=== PATIENT | male | born 1950 | race Caucasian/White ===

== ENCOUNTER 2016-11-13 05:52 | Inpatient (IN) ==
[2016-11-06 10:20] LABS: Basophils # 0.1 10*3/uL (0.0-0.2); Basophils % 0.6 % (0.0-0.8); Eosinophils # 0.2 10*3/uL (0.0-0.87); Eosinophils % 1.3 % (0.00-10.9); Hematocrit 46.6 VOL% (42.0-52.0); Hemoglobin 14.8 GM/DL (14.0-18.0); Immature Granulocytes % 0.8 %; Immature Granulocytes Absolute 0.12 #; Lymphocytes # 1.1 10*3/uL (1.4-4.0); Lymphocytes % 7.4 % (21.2-54.2); Mean Corpuscular HGB Conc 31.8 GM/DL (32-36); Mean Corpuscular Hemoglobin 31 PG (27-34); Mean Corpuscular Volume 97.5 FL (87-102); Mean Platelet Volume 10.5 FL (9.6-12.0); Monocytes # 0.7 10*3/uL (0.11-0.8); Monocytes % 4.8 % (1.7-12.7); Neutrophils # 12.4 10*3/uL (1.4-7.4); Neutrophils % 85.1 % (38.7-73.9); Platelet Count 170 T/CUMM (130-400); Red Blood Count 4.78 MC/CUMM (3.8-5.5); Red Cell Distribution Width 14.1 % (9.3-17.3); White Blood Count 14.5 T/CUMM (4-12)
--- NOTE | 2016-11-06 10:21 | EKG Report ---
Stationary ECG Study [facility] Test Date: 11/06/2016 10:20:18 AM Pat Name: МАРИЯ SORTO Department: Room: Gender: M Supervisor Assembling: MARIA D PARHAM : 1950 Requested by: Antoni Whittaker Order Number: [id number] Reading MD: PETRA ANDERSON Intervals [place] Rate: 70 P: -3 OR: 155 QRS: -20 QRSD: 137 T: 28 QT: 427 QTc: 448 Interpretive Statements SINUS RHYTHM WITH OCCASIONAL SUPRAVENTRICULAR PREMATURE COMPLEXES at 70 bpm RIGHT BUNDLE BRANCH BLOCK Electronically Signed On 11-06-16 13:12:31 CDT by PETRA ANDERSON [email or web address]
[2016-11-06 10:52] LABS: Calcium 8.9 MG/DL (8.5-10.1); Osmolality,Calculated 286.8 MOS/KG (273-304); Potassium 4.2 MMOL/L (3.5-5.1)
[2016-11-13] MEDS ORDERED: ceFAZolin 2,000 MG in PREMIX 1 EACH IV ONE (06:00)
[2016-11-13] MEDS ORDERED: ALBUTEROL/IPRATROPIUM 3 ML NEB RESP TX STA (06:29)
[2016-11-13] MEDS ORDERED: methylPREDNISolone SOD SUC 125 MG/2 ML VIAL ONE (06:31)
[2016-11-13] MEDS ORDERED: FAMOTIDINE 20 MG TABLET PO ONE (06:37)
[2016-11-13] MEDS ORDERED: CLINDAMYCIN INJ 50 ML IV ONE (06:47)
[2016-11-13] MEDS ORDERED: FAMOTIDINE 20 MG TABLET ONE (06:47)
[2016-11-13] MEDS ORDERED: methylPREDNISolone SOD SUC 125 MG/2 ML VIAL IV STA (06:58)
[2016-11-13] MEDS ORDERED: LACTATED RINGERS 1,000 ML IV SCH (07:00)
[2016-11-13] MEDS ORDERED: CLINDAMYCIN INJ 900 MG in PREMIX 1 EACH IV ONE (07:01)
--- NOTE | 2016-11-13 07:28 | History and Physical Update ---
History and Physical Update - History and Physical H&P was reviewed, the patient examined and there: are no changes in the patients condition since last H&P was completed. - Dictation Physical: refer to scanned H&P
[2016-11-13 08:16] LABS: Apearance,Urine CLEAR (Clear); Bilirubin,Urine Negative (Negative); Blood, Urine Negative (Negative); Glucose,Urine (UA) Negative (Negative); Ketones,Urine Negative (Negative); Mucus,Urine Occasional /LPF (Occasional); Nitrite,Urine Negative (Negative); Protein,Urine Negative; RBC,Urine 1 /HPF (0-4); Squamous Epithelial Cell,Urine Occasional /HPF (0-10); Urine Color Straw (Yellow); Urine Specific Gravity 1.009 (1.001-1.035); Urine Urobilinogen < 2.0 EU/DL (0.2-1.0)
[2016-11-13] MEDS ORDERED: ROPIVACAINE 0.5% 30 ML VIAL ONE (08:57)
--- NOTE | 2016-11-13 09:52 | Operative Note ---
Date of procedure: 11/13/16 Procedure: Dr. Terry with operative note on Peter Salas. Surgeon Panfilo Sewer Line Photo Inspector Dr. Terry Procedure laparoscopy with open repair of right diaphragmatic and ventral hernia with mesh. Description: Dr. Whittaker perform laparoscopy and open and open repair of a right diaphragmatic and ventral hernia and repair of costal margin using Prolene mesh. I scrubbed and assisted throughout the procedure including initial laparoscopy the repair and closure by Dr. Whittaker. Surgeon / Physician: Preet Terry Results - Labs CBC & BMP: 11/06/16 10:13 11/06/16 10:13 Discharge Plan - Discharge Medications No Action Fluoxetine HCl 40 mg PO DAILY Doxazosin [Cardura] 4 mg PO BEDTIME Aspirin [Ecotrin] 81 mg PO DAILY Albuterol Sulfate [Proair HFA] 2 puff INH BID Amiodarone Tab [Cordarone Tab] 100 mg PO DAILY predniSONE TAB [PredniSONE] See Taper PO DAILY Ergocalciferol (Vitamin D2) [Vitamin D2] 50,000 unit PO DIRECTED Glimepiride [Amaryl] 1 mg PO DAILY Furosemide Tab [Lasix Tab] 80 mg PO DAILY PRN PRN Reason: Edema Arformoterol Neb [Brovana] 15 mcg RESP TX RT BID - Follow Up or Referral - Forms/Instructions
--- NOTE | 2016-11-13 10:12 | Operative Note ---
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 Diagnostic laparoscopy 2. Laparoscopic lysis of adhesions with reduction of hernia contents 3. Open repair of ventral abdominal wall hernia with mesh 4. Open repair of diaphragmatic hernia with mesh 5. Right sided abdominal wall component separation/myofascial release Findings Laparoscopy revealed a large combined diaphragmatic and abdominal wall and chest wall hernia defect between the ninth and 10th ribs. The pleural and peritoneal interface had been violated by the hernia defect and they communicated with one another and although the lung was visible at the right lower lobe this did not communicate completely with the pleural space because of scar tissue from the hernia defect. The hernia was reduced laparoscopically and a complete lysis of adhesions was performed. It appeared as though it would be impossible to close the defect laparoscopically because of the tension that was present in the separation of the ribs so a small incision was made in the intercostal space for the ribs and and the repair was performed using a combined open and laparoscopic technique. A component separation was performed on the right sided abdominal wall muscle and myofascial release was completed. This allowed us to close the posterior fascia up to the intercostals which were then closed with intercostal sutures using Ethibond [id number]. A piece of pro-vice president process polypropylene mesh was then placed with the adhesive surface facing the posterior sheath and was placed on top of the chest wall after the intercostals were closed and transition from the posterior sheath of the chest wall above the rib space. The anterior fascial layer of the abdomen and intercostals was then closed with another suture layer and a drain was placed. Repeat laparoscopy revealed complete coat closure of the defect with no mesh exposed. Complications None apparent Specimen None Surgeon Panfilo State Auditor Harrison Blood loss 50 mL Implants 30 x 15 cm polypropylene self-adhesive mesh Indications Symptomatic combined abdominal wall, chest wall, diaphragmatic hernia on the right side Description of procedure The patient was taken to the operating room and transferred to the operating table in the supine position. Pressure points were padded and SCDs were placed lower extremities. The abdominal hair was clipped with electric clippers and prepped with chlorhexidine after the patient was intubated and rolled into the left lateral decubitus position modified with a beanbag. The abdomen was entered in a supraumbilical location in a paramedian location on the right midline using a Veress needle. A 8 mm skin incision was made with a scalpel and a Veress needle was used and of the peritoneal cavity after the abdominal wall was retracted with towel clips a double click technique was used to confirm intraperitoneal location. Aspiration was negative. Saline drop test confirmed intraperitoneal location. The abdomen was insufflated with 7 L of CO2 to 15 mmHg and the Veress needle was removed. A robotic 8 mm trocar was placed blindly. The laparoscope was inserted. The patient was placed in reverse Trendelenburg position. Diagnostic laparoscopy revealed what appeared to be a combined abdominal wall and chest wall and diaphragmatic hernia on the right side with a significant separation of the intercostal space between the ninth and 10th ribs. There were adhesions between the omentum that were tenting the colon up to this as well but all the adhesions were between the omentum and the hernia sac. These adhesions were taken down using sharp dissection and electrocautery were needed. Once the hernia contents were completely reduced we assess the tension on the lateral edges of the hernia defect and this appeared to be too much tension for any sort of primary closure laparoscopically or robotically. We thought that by making an incision we could close the intercostal space and take tension off of the chest wall portion of the hernia and get a primary closure with some sort of mesh repair as well. The laparoscope was removed and the CO2 was released from the abdomen. An incision was made over the bulging hernia defect and we entered the hernia sac through an incision made with scalpel at this location electrocautery was then used to open the remainder of the hernia sac and the hernia was further delineated. What we saw with an open incision was that the parietal pleura and the peritoneum had both been blown out by the hernia and communicated with one another and we can actually see visceral pleura in the right lower lobe of the lung in this location. There were adhesions between the lung and the chest wall so that it did not communicate completely with the right hemithorax. We were able to bring together the diaphragm laterally but it became more difficult more medially where the diaphragm transition into the intercostal in the abdominal wall muscle. A myofascial release was performed and component separation was performed to release tension on the abdominal wall portion of the hernia and using this technique with complete component separation we are able to more easily close the posterior fascia of the abdominal wall up to the intercostal muscles and the diaphragm was able to be partially closed once the intercostals were closed with [id number] 0 Ethibond sutures. The posterior fascia and diaphragm and chest wall was otherwise closed with a running #1 Prolene suture. The space of the hernia closure was then measured once the entire length of the defect was closed and it measured about 25 x 15 cm. A piece of 30 x 15 cm self adhesive pro-vice president process polypropylene mesh was opened and placed in the space had been created in the abdominal wall by the component separation between the posterior and anterior fascial layers. This then transitioned over the intercostals into a onlay type of mesh above the intercostal closure space. The mesh was also sewn in place with interrupted 0 Vicryl sutures and Tisseel glue 10 cc was used to secure the mesh further in place. A #10 MAYTE drain was placed below the intercostal closure where there was still some lung exposed and a portion of the fenestrated part of the MAYTE drain was also placed in the subcutaneous closure above the intercostal muscles. The anterior fascial layer of the abdominal wall was then closed in conjunction with the chest wall external oblique aponeurosis with a running 0 Prolene suture. The MAYTE drain was hooked up to bulb suction and a repeat laparoscopy was performed. There is no significant bleeding seen on laparoscopy and there appeared to be a complete closure of the hernia defect that was initially seen. The skin incisions were closed with skin clips and the laparoscope was removed and the trochars were removed once the CO2 was released from the abdomen. Those skin incisions were also closed with skin clips and the patient was transferred to recovery with plans to attempt extubation and monitor him in the ICU overnight. An intercostal nerve block is also planned to assist with postoperative pain control Postoperative plan Pain control and respiratory priority Implants: Pro-vice president process [id number] polypropylene mesh Anesthesia: DORITA, regional Surgeon / Physician: Antoni Whittaker Button Sewer: Preet Terry Estimated blood loss: minimal (50 mL) Specimens: none sent Condition: stable Disposition: ICU Results - Labs CBC & BMP: 11/06/16 10:13 11/06/16 10:13 Discharge Plan - Discharge Medications No Action Fluoxetine HCl 40 mg PO DAILY Doxazosin [Cardura] 4 mg PO BEDTIME Aspirin [Ecotrin] 81 mg PO DAILY Albuterol Sulfate [Proair HFA] 2 puff INH BID Amiodarone Tab [Cordarone Tab] 100 mg PO DAILY predniSONE TAB [PredniSONE] See Taper PO DAILY Ergocalciferol (Vitamin D2) [Vitamin D2] 50,000 unit PO DIRECTED Glimepiride [Amaryl] 1 mg PO DAILY Furosemide Tab [Lasix Tab] 80 mg PO DAILY PRN PRN Reason: Edema Arformoterol Neb [Brovana] 15 mcg RESP TX RT BID - Follow Up or Referral - Forms/Instructions
--- NOTE | 2016-11-13 10:53 | Anesthesia ---
Anesthesia Procedures - Nerve Blocks Surgical Procedure: Right Clamshell diaphragmatic hernia take down and closure Main Anesthetic: general anesthesia (Plus regional) Location: OR Position: other (Left) Type of Block: Right: Epidural (Paravertebral nerve block) Local Anesthetic: 0.5% Ropivicaine (Total 20mL of ropicaine 0.5%- aspirated no blood or air at paravertebral space) Ultrasound Used to: Recognize Landmarks (Using 4 inch marked 1cm increments c sterile prep; 2.5cm lateral to T7 spinous process; advance needle to Transverse process 7 at depth of 4.9cm; then cephalad 45% angle advanced needle to depth of 6.25cm; aspirated no blood or air, then aliqouts of 5mL of 0.5% ropivacaine were injected with aspiration per 5 mL. No issues noted; Vital signs remained stable. ) Epidural Block: 18 G Tuohy needle into (22 g 4 inch needle used) Patient vitals signs stable throughout procedure.: Patient tolertaed the procedure well with no apparent complications. (total of ropivacaine 0.5% 20mL)
[2016-11-13] MEDS ORDERED: PROPOFOL 200 MG/20 ML VIAL IV ONE (11:03)
[2016-11-13] MEDS ORDERED: SEVOFLURANE 1 UNIT/15 MINUTE INH ONE (11:04)
[2016-11-13] MEDS ORDERED: HYDROmorphone 2 MG/1 ML VIAL ONE ×2 (11:04→11:26)
[2016-11-13] MEDS ORDERED: fentaNYL 100 MCG/2 ML VIAL ONE (11:05)
[2016-11-13] MEDS ORDERED: MIDAZOLAM 2 MG/2 ML VIAL ONE (11:05)
[2016-11-13] MEDS ORDERED: NEOSTIGMINE 10 MG/10 ML VIAL ONE (11:05)
[2016-11-13] MEDS ORDERED: GLYCOPYRROLATE 0.4 MG/2 ML VIAL ONE (11:05)
[2016-11-13] MEDS ORDERED: ACETAMINOPHEN 1,000 MG/100 ML VIAL IV ONE (11:05)
[2016-11-13] MEDS ORDERED: ROCURONIUM 100 MG/10 ML VIAL IV ONE (11:06)
[2016-11-13] MEDS ORDERED: LACTATED RINGERS 2,000 ML IV ONE (11:06)
--- NOTE | 2016-11-13 11:20 | XRay Report ---
XR chest 1V portable Indication: Hernia repair surgery Comparison: 16 July 2016 Findings: The heart and mediastinum are stable in size and configuration. The pulmonary vascularity is slightly increased with bilateral increased interstitial lung density. Drain overlies the right side of the lower chest and upper abdomen. No other lung infiltrates, effusions, pneumothorax or other abnormality is demonstrated. Impression: Findings suggest mild cardiac decompensation. Drain overlies the right lower chest and right upper abdomen. PROCEDURE INTERPRETED AT [facility] Final Report Signed by: Dr. Kurt Treviño
[2016-11-13] MEDS ORDERED: ONDANSETRON 4 MG/2 ML VIAL ONE (11:26)
[2016-11-13] MEDS: HYDROmorphone 2 MG/1 ML VIAL IV PRN ×4 (11:27→11:42)
[2016-11-13] MEDS ORDERED: ONDANSETRON 4 MG/2 ML VIAL IV PRN (11:45)
[2016-11-13] MEDS ORDERED: DEXTROSE 50% 25 GM/50 ML VIAL IV PRN (13:25)
[2016-11-13] MEDS ORDERED: ERGOCALCIFEROL 50,000 UNIT CAPSULE PO SCH (13:25)
[2016-11-13] MEDS ORDERED: FUROSEMIDE 80 MG TABLET PO PRN (13:25)
[2016-11-13] MEDS ORDERED: KETOROLAC 15 MG/1 ML VIAL IV SCH (13:25)
[2016-11-13] MEDS ORDERED: GLUCAGON 1 MG VIAL IM PRN (13:25)
[2016-11-13] MEDS ORDERED: PROMETHAZINE 25 MG/1 ML VIAL IM PRN (13:25)
[2016-11-13] MEDS: LACTATED RINGERS 1,000 ML IV SCH ×2 (13:30→17:32)
[2016-11-13 13:58] LABS: Basophils % 0.1 % (0.0-0.8); Hematocrit 38.7 VOL% (42.0-52.0); Hemoglobin 12.2 GM/DL (14.0-18.0); Immature Granulocytes % 0.6 %; Lymphocytes # 0.3 10*3/uL (1.4-4.0); Lymphocytes % 1.6 % (21.2-54.2); Mean Corpuscular HGB Conc 31.5 GM/DL (32-36); Mean Corpuscular Hemoglobin 31 PG (27-34); Mean Corpuscular Volume 98.2 FL (87-102); Mean Platelet Volume 10.7 FL (9.6-12.0); Monocytes # 0.5 10*3/uL (0.11-0.8); Monocytes % 3.3 % (1.7-12.7); Neutrophils # 15.1 10*3/uL (1.4-7.4); Neutrophils % 94.4 % (38.7-73.9); Platelet Count 168 T/CUMM (130-400); Red Blood Count 3.94 MC/CUMM (3.8-5.5); Red Cell Distribution Width 13.8 % (9.3-17.3)
[2016-11-13 14:13] LABS: PT Patient Result 10.7 SECS; Partial Thromboplastin Time 26.9 SECS (0-40)
[2016-11-13 14:18] LABS: Lymphocytes 1 % (20-55); Segmented Neutrophils 96 % (50-85); Total Cells Counted 100
[2016-11-13 14:19] LABS: Platelet Estimate Adequate
[2016-11-13] MEDS: HYDROmorphone PCA 30 MG/30 ML SYRINGE IV SCH (14:46)
[2016-11-13 14:47] LABS: Calcium 7.8 MG/DL (8.5-10.1); Magnesium 2.1 MG/DL (1.8-2.4); Osmolality,Calculated 287.3 MOS/KG (273-304); Potassium 4.5 MMOL/L (3.5-5.1)
[2016-11-13] MEDS: ONDANSETRON 4 MG/2 ML VIAL IV SCH ×3 (14:48→22:32)
--- NOTE | 2016-11-13 14:48 | Pulmonology Progress Note ---
Pulmonary - PN: Subj Interval history: Patient is a 66-year-old white man that is overweight with COPD. Last winter he had pneumonia and respiratory failure and had a difficult time. He has severe coughing episode tore a muscle in his right rib cage. From there he developed a hernia. His breathing had done well he was doing much better. He came in today to have his hernia repaired. He had repair of the diaphragmatic hernia and the abdominal wall hernia but he did not have to have a thoracotomy. He is doing well postop and is alert and awake. He is very sore but feels like his breathing is okay. He has chronically been on steroids. Exam (Progress Note) - Constitutional Vitals: Period Temp Pulse Resp BP Sys/Padgett Pulse Ox Last 24 Hr 97.4 F-98.0 F 62-94 12-20 102-168/56-97 73-99 General appearance: mild distress (He is alert and looks quite stable postop), over weight - Head Head exam: Present: normal inspection, normocephalic - Eye Eye exam: Present: EOMI. Absent: scleral icterus Pupils: Present: NASH - ENT ENT exam: Present: normal exam - Neck Neck exam: Present: normal inspection. Absent: lymphadenopathy, thyromegaly - Respiratory Respiratory exam: Present: decreased breath sounds. Absent: wheezes - Cardiovascular Cardiovascular exam: Present: regular rate and rhythm. Absent: gallop, systolic murmur - GI/Abdominal GI/Abdominal exam: Present: distended, tenderness, soft, other (He does have a drain in place). Absent: organomegaly - Extremities Exam Extremities exam: Absent: calf tenderness, edema - Neurological Exam Neurological exam: Present: alert, oriented X3. Absent: CN II-XII intact - Psychiatric Psychiatric exam: Present: normal affect - Skin Skin exam: Present: warm, dry Results - Labs CBC & BMP: 11/13/16 13:53 11/06/16 10:13 - Diagnostic Findings Procedure: Chest x-ray: image reviewed by me, report reviewed by me (Chest x- ray has mild bibasilar changes.) Assessment and Plan (1) Diaphragmatic hernia Status: Acute Assessment and plan: Patient came in had a right diaphragmatic hernia repaired along with abdominal wall hernia. He did well with surgery and is fairly stable now Current Visit: Yes (2) Abdominal wall hernia Status: Acute Assessment and plan: He has a drain in his abdominal wall but is doing okay. Current Visit: Yes (3) COPD (chronic obstructive pulmonary disease) Status: Acute Assessment and plan: He has COPD but is breathing comfortably and will continue with bronchodilator therapy. Current Visit: Yes (4) Hypertension Status: Acute Assessment and plan: His vital signs are stable at present Current Visit: No (5) Obstructive sleep apnea Status: Acute Assessment and plan: He may need his CPAP at night. Current Visit: No
--- NOTE | 2016-11-13 16:32 | Event Note ---
General Surgery Progress Note Chief complaint This patient is a 66-year-old man with severe COPD on home oxygen who was admitted after laparoscopic lysis of adhesions with open repair of right sided abdominal wall, chest wall, and diaphragmatic hernia with mesh on 11/13/2016 Interval history The patient is doing fairly well but he has a slightly low blood pressure. He is not tachycardic. He does not feel lightheaded. His postoperative labs revealed that his hemoglobin had dropped from 14.8 preop to 12.2 postop. He has not voided since surgery. His creatinine was normal. He has had about 500 cc of output from his MAYTE drain but is looking more serosanguineous although it was slightly bloody initially. He also has respiratory variation and part of it is inside the pleural cavity. His postoperative chest x-ray showed no pneumothorax. Physical exam The patient is afebrile and his heart rate is normal. His blood pressure slightly low in the 100s over 50s range. Chest is clear Heart is regular Abdominal exam is normal with expected postoperative tenderness MAYTE drain is serosanguineous and is clearing up and the output is slowing down slightly. Labs Hemoglobin 12.2 g/dL excellent coags normal Creatinine normal Imaging Chest x-ray shows expanded right lung Assessment and plan Continue monitoring MAYTE drain output and serial hemoglobins tonight. The next hemoglobin will be at 8 PM. The patient may need a blood transfusion if it drops below 10 g/dL Continue monitoring urine output and do bladder scan at 1600 if he has not voided yet Continue current pain medication regimen. If his hemoglobin drops any more he will need to have his Toradol stopped. Continue abdominal binder Tentatively plan to start DVT chemoprophylaxis tomorrow if his hemoglobin is stable
[2016-11-13] MEDS ORDERED: LACTATED RINGERS 1,000 ML IV ONE (17:19)
--- NOTE | 2016-11-13 17:23 | Anesthesia ---
Anesthesia Post OP - Post Ansesthetic Evaluation Patient seen in post op: Yes Resp: within normal limits CV: within normal limits Mental: within normal limits Temp: within normal limits Olet-Ex-Ogzjeycir: within normal limits Nausea and Vomiting: within normal limits Pain: within normal limits
[2016-11-13] MEDS: INSULIN REGULAR 100 UNIT/ML SUBCUT SCH ×3 (17:26→21:55)
[2016-11-13] MEDS: ALBUTEROL/IPRATROPIUM 3 ML NEB RESP TX SCH (18:59)
[2016-11-13] MEDS ORDERED: ARFORMOTEROL 15 MCG/2 ML NEB RESP TX SCH (19:00)
[2016-11-13] MEDS ORDERED: SODIUM CHLORIDE 0.9% 1,000 ML IV ONE (20:06)
[2016-11-13 20:08] LABS: Basophils % 0.1 % (0.0-0.8); Hematocrit 36.8 VOL% (42.0-52.0); Hemoglobin 11.4 GM/DL (14.0-18.0); Immature Granulocytes % 0.8 %; Immature Granulocytes Absolute 0.12 #; Lymphocytes # 0.5 10*3/uL (1.4-4.0); Lymphocytes % 3.7 % (21.2-54.2); Mean Corpuscular Hemoglobin 30 PG (27-34); Mean Corpuscular Volume 98.1 FL (87-102); Mean Platelet Volume 10.7 FL (9.6-12.0); Monocytes # 0.9 10*3/uL (0.11-0.8); Monocytes % 5.8 % (1.7-12.7); Neutrophils # 13.2 10*3/uL (1.4-7.4); Neutrophils % 89.6 % (38.7-73.9); Platelet Count 174 T/CUMM (130-400); Red Blood Count 3.75 MC/CUMM (3.8-5.5); Red Cell Distribution Width 14.1 % (9.3-17.3); White Blood Count 14.7 T/CUMM (4-12)
[2016-11-13 20:28] LABS: Lymphocytes 4 % (20-55); Platelet Estimate Adequate; Segmented Neutrophils 89 % (50-85); Total Cells Counted 100
[2016-11-13] MEDS ORDERED: ALBUTEROL 2.5 MG/3 ML NEB RESP TX SCH (21:00)
[2016-11-13] MEDS ORDERED: ALBUMIN 5% 25 GM in PREMIX 1 EACH IV ONE (22:03)
[2016-11-14] MEDS: DOXAZOSIN 4 MG TABLET PO SCH ×2 (00:01→21:45)
[2016-11-14] MEDS: ALBUTEROL/IPRATROPIUM 3 ML NEB RESP TX SCH ×4 (01:20→19:46)
[2016-11-14] MEDS: LACTATED RINGERS 1,000 ML IV SCH ×6 (02:20→19:47)
[2016-11-14] MEDS: ONDANSETRON 4 MG/2 ML VIAL IV SCH ×6 (02:21→21:42)
[2016-11-14] MEDS ORDERED: ENOXAPARIN 40 MG/0.4 ML SYRINGE SUBCUT SCH (04:00)
[2016-11-14 04:36] LABS: Basophils % 0.1 % (0.0-0.8); Hematocrit 33.6 VOL% (42.0-52.0); Hemoglobin 10.3 GM/DL (14.0-18.0); Immature Granulocytes % 0.7 %; Immature Granulocytes Absolute 0.11 #; Lymphocytes % 6.4 % (21.2-54.2); Mean Corpuscular HGB Conc 30.7 GM/DL (32-36); Mean Corpuscular Hemoglobin 31 PG (27-34); Mean Platelet Volume 11.1 FL (9.6-12.0); Monocytes % 12.9 % (1.7-12.7); Neutrophils # 12.4 10*3/uL (1.4-7.4); Neutrophils % 79.9 % (38.7-73.9); Platelet Count 182 T/CUMM (130-400); Red Blood Count 3.36 MC/CUMM (3.8-5.5); Red Cell Distribution Width 14.3 % (9.3-17.3); White Blood Count 15.6 T/CUMM (4-12)
[2016-11-14 05:04] LABS: Calcium 7.9 MG/DL (8.5-10.1); Potassium 5.1 MMOL/L (3.5-5.1)
--- NOTE | 2016-11-14 06:17 | XRay Report ---
Referring Physician: Antoni Whittaker Exam: XR chest 1V portable Date: November 14, 2016 at 2:50 AM Reason: Shortness of breath Comparison: Chest one view portable November 13, 2016 Findings: The cardiac silhouette is again enlarged. The interstitial markings are prominent bilaterally, suggesting pulmonary edema. There is also mild atelectasis at the lung bases and likely minimal bilateral pleural fluid. A drainage catheter again projects at the right lung base. No pneumothorax is identified. The osseous structures appear stable. Impression: There is slight improvement aeration of both lung bases, mainly on the left. PROCEDURE INTERPRETED AT [facility]MENT OF RADIOLOG[facility] Final Report Signed by: Dr. Rivera Lord
--- NOTE | 2016-11-14 07:10 | Pulmonology Progress Note ---
Pulmonary - PN: Subj Interval history: Patient is a 66-year-old white man that is overweight with COPD. Last winter he had pneumonia and respiratory failure and had a difficult time. He has severe coughing episode tore a muscle in his right rib cage. From there he developed a hernia. His breathing had done well he was doing much better. He came in to have his hernia repaired. He had repair of the diaphragmatic hernia and the abdominal wall hernia but he did not have to have a thoracotomy. He said he had a fairly good night although he is very sore. He did try to use his CPAP some. He cannot sleep and mainly was uncomfortable all night. He says his breathing is doing well however. Exam (Progress Note) - Constitutional Vitals: Period Temp Pulse Resp BP Sys/Padgett Pulse Ox Last 24 Hr 97.4 F-98.9 F 62-94 10-20 87-143/45-84 73-99 Exam: General appearance: no distress (He is alert and is not having any respiratory distress.), over weight - Head Head exam: Present: normal inspection, normocephalic - Eye Eye exam: Present: EOMI. Absent: scleral icterus Pupils: Present: NASH - ENT ENT exam: Present: normal exam - Neck Neck exam: Present: normal inspection. Absent: lymphadenopathy, thyromegaly - Respiratory Respiratory exam: Present: decreased breath sounds. He is moving air fairly well with only some mild rhonchi. Absent: wheezes - Cardiovascular Cardiovascular exam: Present: regular rate and rhythm. Absent: gallop, systolic murmur - GI/Abdominal GI/Abdominal exam: Present: distended, tenderness, soft, other (He does have a drain in place). Absent: organomegaly - Extremities Exam Extremities exam: Absent: calf tenderness, edema - Neurological Exam Neurological exam: Present: alert, oriented X3. Absent: CN II-XII intact - Psychiatric Psychiatric exam: Present: normal affect - Skin Skin exam: Present: warm, dry Results - Labs CBC & BMP: 11/14/16 03:52 11/14/16 03:52 - Diagnostic Findings Procedure: Chest x-ray: image reviewed by me, report reviewed by me (Chest x- ray shows cardiomegaly with only some minimal infiltrates in the bases.) Assessment and Plan (1) Diaphragmatic hernia Status: Acute Assessment and plan: Patient came in had a right diaphragmatic hernia repaired along with abdominal wall hernia. He is doing okay but is very uncomfortable. His breathing has been stable. Current Visit: Yes (2) Abdominal wall hernia Status: Acute Assessment and plan: He has a drain in his abdominal wall but is doing okay. Current Visit: Yes (3) COPD (chronic obstructive pulmonary disease) Status: Acute Assessment and plan: He has COPD but is breathing comfortably and will continue with bronchodilator therapy. He is comfortable with his breathing. Current Visit: Yes (4) Hypertension Status: Acute Assessment and plan: His vital signs are stable at present. Current Visit: No (5) Obstructive sleep apnea Status: Acute Assessment and plan: He did use his CPAP some last night. Current Visit: No
[2016-11-14] MEDS: INSULIN REGULAR 100 UNIT/ML SUBCUT SCH ×4 (07:48→21:44)
[2016-11-14] MEDS: AMIODARONE 200 MG TABLET PO SCH (09:16)
[2016-11-14] MEDS: ASPIRIN EC 81 MG TABLET PO SCH (09:16)
[2016-11-14] MEDS: predniSONE 20 MG TABLET PO SCH (09:16)
[2016-11-14] MEDS: FLUoxetine 20 MG CAPSULE PO SCH (09:16)
--- NOTE | 2016-11-14 10:44 | Event Note ---
General Surgery Progress Note Chief complaint This patient is a 66-year-old man with severe COPD on home oxygen who was admitted after laparoscopic lysis of adhesions with open repair of right sided abdominal wall, chest wall, and diaphragmatic hernia with mesh on 11/13/2016 Interval history No events overnight. Patient's hemoglobin has drifted down to 10.2 this morning. He was a little bit hypotensive overnight but his blood pressure is normal now. His MAYTE drain is more serosanguineous now. He feels well. Physical exam The patient is afebrile and his heart rate is normal. His blood pressure is normal Chest is clear Heart is regular Abdominal exam is normal with expected postoperative tenderness MAYTE drain is serosanguineous and is clearing up and the output is slowing down slightly. Labs Hemoglobin 10.2 g/dL Creatinine up to 1.6 Imaging Chest x-ray shows expanded right lung, no other changes Assessment and plan We will start getting the patient up in a chair today Continue current pain regimen but we need to stop Toradol and hold Lovenox because of bleeding risk Continue SCDs to bilateral lower extremities Repeat hemoglobin at noon and repeat labs tomorrow morning Monitor urine output and add IV fluid as necessary but currently the urine output has been adequate per hour.
[2016-11-14 13:10] LABS: Basophils % 0.1 % (0.0-0.8); Eosinophils % 0.1 % (0.00-10.9); Hematocrit 34.7 VOL% (42.0-52.0); Hemoglobin 10.7 GM/DL (14.0-18.0); Immature Granulocytes % 0.7 %; Immature Granulocytes Absolute 0.12 #; Lymphocytes # 0.7 10*3/uL (1.4-4.0); Lymphocytes % 3.9 % (21.2-54.2); Mean Corpuscular HGB Conc 30.8 GM/DL (32-36); Mean Corpuscular Hemoglobin 31 PG (27-34); Mean Corpuscular Volume 101.5 FL (87-102); Mean Platelet Volume 10.9 FL (9.6-12.0); Monocytes # 2.2 10*3/uL (0.11-0.8); Neutrophils # 13.7 10*3/uL (1.4-7.4); Neutrophils % 82.2 % (38.7-73.9); Platelet Count 167 T/CUMM (130-400); Red Blood Count 3.42 MC/CUMM (3.8-5.5); Red Cell Distribution Width 14.4 % (9.3-17.3); White Blood Count 16.7 T/CUMM (4-12)
[2016-11-14] MEDS: HYDROmorphone PCA 30 MG/30 ML SYRINGE IV SCH (13:14)
[2016-11-14 13:29] LABS: Lymphocytes 3 % (20-55); Platelet Estimate Adequate; Segmented Neutrophils 91 % (50-85); Total Cells Counted 100
--- NOTE | 2016-11-14 13:29 | Physician Query Form ---
CLICK EDIT DOCUMENT TO SELECT QUERY ANSWER --> OK --> SIGN Denise Clemens RN, CCDS Certified Clinical Financial Advisor W) [phone] (f) [phone] [email or web address] PROVIDERS: Make your selection(s) from the choices in EACH section by typing an "x" and enter comments in the comment section. Please use your independent medical judgment in providing your response. This request does not imply that any particular answer is desired or expected. CLINICAL INDICATORS: (Providers should not edit this section) "This patient is a 66-year-old man with severe COPD on home oxygen", the patient was admitted for surgery and was placed on 2 liters per NC. Based on the above, could you clarify the appropriate diagnosis, if significant , that supports the above abnormalities and additional evaluation, monitoring, and/or treatment rendered: (x ) Patient is being monitored or treated for chronic respiratory failure ( ) Patient is not being monitored or treated for chronic respiratory failure ( ) Other, please specify: ( ) Clinically unable to determine COMMENTS: Use of terms such as suspected, likely, or probable (associated with a specific diagnosis that is being evaluated, monitored, or treated as if it exists) are acceptable and can be restated in the discharge summary if not ruled out. MTDD
[2016-11-14 13:30] LABS: Poikilocytosis Slight
[2016-11-14] MEDS: HEPARIN 5,000 UNIT/1 ML VIAL SUBCUT SCH (21:43)
[2016-11-14 22:56] LABS: ABG Base Excess 0.8 MMOL/L (-2.5-2.5); ABG HCO3 24.9 MMOL/L (20-26); ABG Oxygen Saturation 86.6 % (95-100); ABG PCO2 51.9 MM HG (35-48); ABG PH 7.331 (7.35-7.45); ABG PO2 52.4 MM HG (80-95); Allen Test Positive; Pt O2 Delivery Device BIPAP
[2016-11-15] MEDS: ALBUTEROL/IPRATROPIUM 3 ML NEB RESP TX SCH ×4 (00:56→19:57)
[2016-11-15 02:01] LABS: Basophils % 0.2 % (0.0-0.8); Hematocrit 35.1 VOL% (42.0-52.0); Hemoglobin 10.9 GM/DL (14.0-18.0); Immature Granulocytes % 0.6 %; Immature Granulocytes Absolute 0.11 #; Lymphocytes # 1.1 10*3/uL (1.4-4.0); Lymphocytes % 5.5 % (21.2-54.2); Mean Corpuscular HGB Conc 31.1 GM/DL (32-36); Mean Corpuscular Hemoglobin 31 PG (27-34); Mean Corpuscular Volume 100.3 FL (87-102); Mean Platelet Volume 11.2 FL (9.6-12.0); Monocytes # 2.5 10*3/uL (0.11-0.8); Monocytes % 12.6 % (1.7-12.7); Neutrophils # 16.2 10*3/uL (1.4-7.4); Neutrophils % 81.1 % (38.7-73.9); Platelet Count 160 T/CUMM (130-400); Red Cell Distribution Width 14.5 % (9.3-17.3); White Blood Count 19.9 T/CUMM (4-12)
[2016-11-15] MEDS ORDERED: FUROSEMIDE 40 MG/4 ML VIAL IV ONE (02:03)
[2016-11-15] MEDS ORDERED: DILTIAZEM 100 MG VIAL.ADD IV ONE (02:06)
[2016-11-15] MEDS: DILTIAZEM INJ 100 MG in SODIUM CHLORIDE 0.9% 100 ML IV SCH ×3 (02:20→16:28)
[2016-11-15 02:38] LABS: Magnesium 2.2 MG/DL (1.8-2.4); Osmolality,Calculated 286.3 MOS/KG (273-304); Potassium 4.9 MMOL/L (3.5-5.1)
[2016-11-15 03:48] LABS: ABG Base Excess 1.1 MMOL/L (-2.5-2.5); ABG Oxygen Saturation 73.6 % (95-100); ABG PH 7.336 (7.35-7.45); ABG TCO2 25.3 MMOL/L (23-27); Allen Test Positive; Pt O2 Delivery Device BIPAP
[2016-11-15 04:07] LABS: ABG PO2 39.7 MM HG (80-95)
[2016-11-15] MEDS: ONDANSETRON 4 MG/2 ML VIAL IV SCH ×6 (04:16→21:27)
[2016-11-15] MEDS: HEPARIN 5,000 UNIT/1 ML VIAL SUBCUT SCH ×3 (05:57→22:39)
--- NOTE | 2016-11-15 06:24 | XRay Report ---
Referring Physician: Antoni Whittaker Exam: XR chest 1V portable Date: November 15, 2016 at 1:32 AM Reason: Shortness of breath Comparison: Chest one view portable November 14, 2016 Findings: A catheter projects at the right lung base and may represent a chest tube. The cardiac silhouette is again enlarged. There are scattered opacities within both lungs, most prominent at the right lung base. This likely represents pulmonary edema and atelectasis, but there could also be pneumonia at the right lung base. No pneumothorax is identified, but there is mild right pleural fluid and likely minimal left pleural fluid. The osseous structures appear stable. Impression: There is increased opacification/pleural fluid at the right lung base. The study is otherwise similar to before. PROCEDURE INTERPRETED AT [facility] DEPARTMENT OF RADIOLOGY Final Report Signed by: Dr. Rivera Lord
[2016-11-15] MEDS ORDERED: HYDROmorphone 2 MG/1 ML VIAL IV PRN (06:36)
[2016-11-15 07:17] LABS: ABG Base Excess 1.5 MMOL/L (-2.5-2.5); ABG HCO3 25.6 MMOL/L (20-26); ABG Oxygen Saturation 90.4 % (95-100); ABG PCO2 48.9 MM HG (35-48); ABG PH 7.359 (7.35-7.45); ABG PO2 58.2 MM HG (80-95); ABG TCO2 25.1 MMOL/L (23-27); Pt O2 Delivery Device BIPAP
[2016-11-15] MEDS: INSULIN REGULAR 100 UNIT/ML SUBCUT SCH ×4 (07:29→21:28)
--- NOTE | 2016-11-15 07:51 | EKG Report ---
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
--- NOTE | 2016-11-15 07:51 | Pulmonology Progress Note ---
Pulmonary - PN: Subj Interval history: Patient is a 66-year-old white man that is overweight with COPD. Last winter he had pneumonia and respiratory failure and had a difficult time. He has severe coughing episode tore a muscle in his right rib cage. From there he developed a hernia. His breathing had done well he was doing much better. He came in to have his hernia repaired. He had repair of the diaphragmatic hernia and the abdominal wall hernia but he did not have to have a thoracotomy. He had a fairly good day yesterday but last night he had more difficulty breathing. He would drop his O2 saturations quite easily. His PO2 is very low this morning and he was placed on BiPAP. He actually looks much better now. He is alert and comfortable and says his breathing is better. He still has a very sore right chest. He does have some mild consolidation in the right base. He still has a drain in the right base. Overall he looks better at present. Exam (Progress Note) - Constitutional Vitals: Period Temp Pulse Resp BP Sys/Padgett Pulse Ox Last 24 Hr 98.8 F-99.9 F 72-138 12-26 91-169/54-81 76-100 Exam: General appearance: no distress (He is alert and is reasonably comfortable sitting up on BiPAP.) - Head Head exam: Present: normal inspection, normocephalic - Eye Eye exam: Present: EOMI. Absent: scleral icterus Pupils: Present: NASH - ENT ENT exam: Present: normal exam - Neck Neck exam: Present: normal inspection. Absent: lymphadenopathy, thyromegaly - Respiratory Respiratory exam: Present: He has fair breath sounds bilaterally although there are little diminished in the right base. He has minimal rhonchi now. - Cardiovascular Cardiovascular exam: Present: regular rate and rhythm. Absent: gallop, systolic murmur - GI/Abdominal GI/Abdominal exam: Present: distended, tenderness, soft, other (He does have a drain in place). Absent: organomegaly - Extremities Exam Extremities exam: Absent: calf tenderness, edema - Neurological Exam Neurological exam: Present: alert, oriented X3. Absent: CN II-XII intact - Psychiatric Psychiatric exam: Present: normal affect - Skin Skin exam: Present: warm, dry Results - Labs CBC & BMP: 11/15/16 01:37 11/15/16 01:37 Labs: PO2 is 58 with a PCO2 of 48 and a pH of 7.35 - Diagnostic Findings Procedure: Chest x-ray: image reviewed by me, report reviewed by me (Chest x- ray does show mild consolidation in the right base. He does have cardiomegaly but no overt heart failure.) Assessment and Plan (1) Diaphragmatic hernia Status: Acute Assessment and plan: Patient came in had a right diaphragmatic hernia repaired along with abdominal wall hernia. He had a lot of discomfort during the night and some shortness of breath. He does look a little better today. We will continue vigorous respiratory therapy. Current Visit: Yes (2) Abdominal wall hernia Status: Acute Assessment and plan: He has a drain in his abdominal wall but is doing okay. Current Visit: Yes (3) COPD (chronic obstructive pulmonary disease) Status: Acute Assessment and plan: He has COPD and had a fairly rough night but is doing better now. He did require BiPAP during the night. Will cover him with antibiotics and continue respiratory therapy and steroids. Current Visit: Yes (4) Hypertension Status: Acute Assessment and plan: His vital signs are stable at present. Current Visit: No (5) Obstructive sleep apnea Status: Acute Assessment and plan: He does use his CPAP and needed BiPAP last night. Current Visit: No
--- NOTE | 2016-11-15 08:44 | Event Note ---
General Surgery Progress Note Chief complaint This patient is a 66-year-old man with severe COPD on home oxygen who was admitted after laparoscopic lysis of adhesions with open repair of right sided abdominal wall, chest wall, and diaphragmatic hernia with mesh on 11/13/2016 Interval history The patient developed rapid ventricular response with atrial fibrillation last night and was placed on a Cardizem drip as well as an additional dose of IV Lasix. He is resting comfortably when I saw him this morning. His EKG showed A. fib with RVR but no ST segment changes. His lab work revealed a stable hemoglobin and improving creatinine level with no significant electrolyte derangements. He was up in a chair for several hours yesterday. His drain output is more serous today. His white blood cell count is up to 20,000 and is having some low-grade fever. Physical exam there was a low-grade temperature overnight up to 99.9. His heart rate is currently 85 but was up in the 130s at one point last night. It is irregular. His blood pressure was a little bit low this morning but it is return to normal throughout the day. Chest is clear Heart is irregular Abdominal exam is normal with expected postoperative tenderness. The incisions are clean and dry with no evidence of infection or bleeding. MAYTE drain is serous and the output is decreasing. Labs As above, hemoglobin is up to 10.9 White blood cell count is up to 19,900 Creatinine is down to 1.4 Imaging Chest x-ray shows expanded right lung, increased consolidation in right lower lobe Assessment and plan Continue sitting up in a chair and increasing activity. DC Nelson catheter DC IV fluids Continue diuresis as needed Patient has been started on antibiotics and we will treat him for pneumonia based on his x-ray findings and his desaturation overnight as well as his increasing white blood cell count and low-grade fever Continue incentive spirometry Continue DVT chemoprophylaxis Repeat labs tomorrow Continue ICU care for today Cardiology consult. Patient is established patient of Dr. Cormier and had an exacerbation of A. fib with RVR overnight and is now on a Cardizem drip
[2016-11-15] MEDS: CEFTAROLINE 600 MG in SODIUM CHLORIDE 0.9% 100 ML IV SCH ×2 (08:47→21:28)
[2016-11-15] MEDS: AMIODARONE 200 MG TABLET PO SCH (08:47)
[2016-11-15] MEDS: FLUoxetine 20 MG CAPSULE PO SCH (08:47)
[2016-11-15] MEDS: ASPIRIN EC 81 MG TABLET PO SCH (08:47)
[2016-11-15] MEDS: predniSONE 20 MG TABLET PO SCH (08:47)
--- NOTE | 2016-11-15 09:41 | Physician Query Form ---
CLICK EDIT DOCUMENT TO SELECT QUERY ANSWER --> OK --> SIGN Denise Clemens RN, CCDS Certified Clinical Share[employer] Net Developer W) [phone] (f) [phone] [email or web address] PROVIDERS: Make your selection(s) from the choices in EACH section by typing an "x" and enter comments in the comment section. Please use your independent medical judgment in providing your response. This request does not imply that any particular answer is desired or expected. CLINICAL INDICATORS: (Providers should not edit this section) The medical record indicates that the patient was admitted for a hernia repair, history of chronic respiratory failure, NIDIA, on the 12th: "drop his 02 saturations quite easily", "PO2 is very low this morning and he was placed on BiPAP", and the ABG's pH 7.331#, pC02 51.9#, P02 52.4. If possible, please further clarify the type and acuity of respiratory diagnosis : ACUITY: ( ) Acute ( ) Chronic (x ) Acute on Chronic TYPE: ( ) Respiratory failure with hypoxia (x ) Respiratory failure with hypercapnia ( ) Respiratory Arrest ( ) Postprocedural/postoperative respiratory failure ( ) Respiratory Insufficiency ( ) ARDS (Adult/Acute Respiratory Distress Syndrome) ( ) Other, please specify: ( ) Clinically unable to determine Recognized criteria for respiratory failure PH <7.35 or >7.45 PO2 <60 PCO2 >50 RR >24 O2 Sat <90% on RA or <95% on O2 Use of accessory muscles Unable to speak in full sentences Intubation is not required COMMENTS: Use of terms such as suspected, likely, or probable (associated with a specific diagnosis that is being evaluated, monitored, or treated as if it exists) are acceptable and can be restated in the discharge summary if not ruled out. MTDD
--- NOTE | 2016-11-15 10:52 | Cardiology Consult Note ---
<Antionette Razo E - Last Filed: 11/15/16 11:13> Assessment and Plan - Time spent with patient Time spent with patient: Greater than 30 minutes (due to assessment, plan, and documentation) (1) Atrial fibrillation with rapid ventricular response Status: Acute Assessment and plan: Continue to wean IV Cardizem. Continue PO Amiodarone. Currently in NSR, rates in 80's. Currently on ASA daily and Heparin injections subcutaneously. Current Visit: Yes (2) Abdominal wall hernia Status: Acute Assessment and plan: S/P repair by Dr. Whittaker. Current Visit: Yes (3) COPD (chronic obstructive pulmonary disease) Status: Chronic Assessment and plan: Pulmonology is following. He did require BiPAP through the night. He is receiving respiratory therapy and steroids. He is being covered with antibiotics for right lower lobe consolidation. Current Visit: Yes (4) Diaphragmatic hernia Status: Acute Assessment and plan: S/P repair by Dr. Whittaker. Current Visit: Yes (5) Diabetes Status: Chronic Assessment and plan: Accuchecks are ACHS. Mild elevations in glucose readings. He is on steroids. Current Visit: No (6) History of atrial fibrillation Status: Chronic Assessment and plan: Paroxysmal, currently in NSR, rates in 80's. On IV Cardizem and PO amiodarone. May have to increase dosage of amiodarone to further wean patient from IV cardizem. Current Visit: No (7) Hypertension Status: Chronic Assessment and plan: Currently well controlled. Continue to monitor and adjust as needed. Current Visit: No (8) Obstructive sleep apnea Status: Chronic Assessment and plan: Required BIPAP last night. Pulmonology is following. Current Visit: No History of Present Illness - Data of Consult Patient: known to practice within the last 3 years (followed by Dr. Cormier) Consult date: 11/15/16 Requesting Physician: Antoni Whittaker - Consult Narrative Reason for consult: AFib w/ RVR History of present illness: HAY CHOPPER: Dr. Cormier PCP: Dr. Hankins Mr. Salas is a 66 year old male who is followed by Dr. Cormier. He has a history of chronic obstructive pulmonary disease, steroid-dependent, paroxysmal atrial fibrillation, type 2 diabetes mellitus, obesity, obstructive sleep apnea (compliant), restless legs syndrome, congestive heart failure. He has risk factors significant for: diabetes, obesity, former smoker, sedentary lifestyle. Echocardiogram on May 03, 2016 revealed ejection fraction 60%. CT scan of the chest with territory ninth showed no acute disease, no interstitial disease, or pulmonary edema. He underwent cardiac catheterization June 18, 2016 with associated depression 50% and no significant coronary artery disease. He was admitted to the hospital on November 13, 2016 for laparoscopic lysis of adhesions with reduction of hernia contents with open repair of right diaphragmatic and ventral hernia with mesh. He has been doing well post operatively. Last night, Mr. Salas developed atrial fibrillation with rapid ventricular response and was placed on a Cardizem infusion. He has developed a low grade fever and an elevated WBC. Chest x-ray yesterday showed increased consolidation in the right base. Pulmonology is following. He has been started on antibiotics. Since initiation of IV Cardizem, Mr. Salas has converted to a normal sinus rhythm and has rates in the 80's. His home medications include amiodarone 100mg po daily. According to Dr. Cormier's clinic note from , his amiodarone was decreased from 200mg po daily since he had not had a recurrence of atrial fibrillation in 7 years. This was decreased to try to reduce any pulmonary toxicity until pulmonary function tests could be obtained from his workers compensation coordinator. PFT's revealed normal FEV1 FVC ratio but decrease in FVC and FEV1, may indicate restrictive component. Mr. Kumar denies recent chest pain, shortness of breath, or palpitations. He reports since his amiodarone was decreased in June, he has not noticed any irregular heartbeats. Will discuss with Dr. Leon and await further recommendations. Assessment/Plan: 1. Atrial fibrillation w/ RVR - Continue to wean IV Cardizem. Continue PO Amiodarone. Currently in NSR, rates in 80's. Currently on ASA daily and Heparin injections subcutaneously. 2. Abdominal wall hernia - S/P repair by Dr. Whittaker. 3. COPD - Pulmonology is following. He did require BiPAP through the night. He is receiving respiratory therapy and steroids. He is being covered with antibiotics for right lower lobe consolidation. 4. Diaphragmatic hernia - S/P repair by Dr. Whittaker. 5. Diabetes - Accuchecks are ACHS. Mild elevations in glucose readings. He is on steroids. 6. History of atrial fibrillation - Paroxysmal, currently in NSR, rates in 80' s. On IV Cardizem and PO amiodarone. May have to increase dosage of amiodarone to further wean patient from IV cardizem. 7. Hypertension - Currently well controlled. Will continue to monitor and adjust as needed. 8. Obstructive sleep apnea - Required BIPAP last night. Pulmonology is following. CC: Antoni Whittaker MD - Home Medications and Allergies Home Medications: Home Medications Medication Instructions Recorded Confirmed Type Albuterol Sulfate [Proair HFA] 2 puff INH BID 06/18/16 11/06/16 History Aspirin [Ecotrin] 81 mg PO DAILY 06/18/16 11/13/16 History Doxazosin [Cardura] 4 mg PO BEDTIME 06/18/16 11/13/16 History Fluoxetine HCl 40 mg PO DAILY 06/18/16 11/13/16 History Amiodarone Tab [Cordarone Tab] 100 mg PO DAILY 07/10/16 11/13/16 History predniSONE TAB [PredniSONE] See Taper PO DAILY 07/16/16 11/13/16 History Furosemide Tab [Lasix Tab] 80 mg PO DAILY PRN 11/06/16 11/13/16 History Glimepiride [Amaryl] 1 mg PO DAILY 11/06/16 11/13/16 History Arformoterol Neb [Brovana] 15 mcg RESP TX RT BID 11/13/16 11/13/16 History Ergocalciferol (Vitamin D2) 50,000 unit PO DIRECTED 11/13/16 11/13/16 History [Vitamin D2] Allergies/Adverse Reactions: Allergies Allergy/AdvReac Type Severity Reaction Status Date / Time adhesive tape Allergy RASH Verified 07/16/16 11:15 Amoxicillin [From Augmentin] Allergy ANAPHYLAXIS Verified 07/10/16 01:33 clavulanic acid Allergy ANAPHYLAXIS Verified 07/10/16 01:33 [From Augmentin] Sulfa (Sulfonamide Allergy ANAPHYLAXIS Verified 07/10/16 01:33 Antibiotics) LATEX Allergy RASH Uncoded 11/06/16 10:35 Review of systems: - Constitutional: Present: As per HPI. Absent: anorexia, chills, daytime sleepiness, excessive sweating, fever(s), frequent falls, headache(s), increased appetite, lethargy, malaise, night sweats, stops breathing during sleep, weakness, weight gain, weight loss, fatigue. - EENT Eyes: Present: As per HPI. Absent: blurry vision, diplopia, loss of vision Ears: Present: As per HPI. Absent: decreased hearing, ear discharge, ear pain Nose, mouth and throat: Present: As per HPI. Absent: dysphagia, epistaxis, headache(s), hoarseness, lip swelling, nasal congestion, neck mass, neck pain, sinus pressure, sore throat, throat swelling, tongue swelling, vertigo - Cardiovascular: Present: as per HPI. Absent: chest pain at rest, chest pain with activity, dyspnea, dyspnea on exertion, edema, claudication, diaphoresis, radiating jaw, neck or arm pain, lightheadedness, orthopnea, palpitations, PND - Respiratory: Present: as per HPI. Absent: dyspnea, dyspnea on exertion, cough , hemoptysis, wheezing, snoring, pain on inspiration - Gastrointestinal: Present: abdominal pain, As per HPI. Absent: bloating, change in bowel habits, constipation, diarrhea, heartburn, hematemesis, hematochezia, loose stools, melena, nausea, vomiting - Genitourinary: Present: As per HPI. Absent: difficulty urinating, dysuria, flank pain, hematuria, nocturia, urinary frequency, urinary incontinence - Musculoskeletal: Present: As per HPI. Absent: arthralgias, back pain, joint swelling, limited range of motion, muscle cramps, muscle weakness, myalgias - Neurological: Present: As per HPI. Absent: abnormal gait, abnormal speech, behavioral changes, confusion, convulsions, disequilibrium, dizziness, focal weakness, frequent falls, headache(s), memory loss, numbness, paresthesias, radicular pain, syncope, tremor(s) - Psychiatric: Present: As per HPI. Absent: anxiety, confusion, depression, panic attacks - Endocrine: Present: As per HPI. Absent: cold intolerance, fatigue, heat intolerance, polydipsia, polyphagia - Hematologic/Lymphatic: Present: As per HPI. Absent: easy bleeding, easy bruising, lymphadenopathy Medical,Surgical,& Family Hx - Medical History Cardio: History of: Cardiac Dysrhythmia (Afib), CHF, Hypertension Comment Only: Cardiovascular Problems (DR ARCHULETA) Psychological: History of: Anxiety Disorders, Depression Neurology: No history of: Seizures HEENT: History of: Eye Problem (Cataracts removed), Dental Problems (PARTIAL TOP ), Glaucoma Endocrine: History of: Diabetes Mellitus (NIDDM), Dyslipidemia Rheumatology: History of;: Gout Respiratory: History of: Asthma, COPD (DR MERCER), Obstructive Sleep Apnea ( CPAP; HOME O2 @2L/MIN PER NC NEEDED), Pneumonia (JUL 2016), Respiratory Problems (LARGE CHEST WALL HERNIA) Genitourinary: History of: Kidney Stones, Prostate Problems Musculoskeletal: History of: Back/Neck Problems, Herniated Disk (RECIEVED INFECTIONS TPC DR NAVARRO HAS NOT BEEN OVER A YEAR) Other: No history of: Anesthesia Reactions - Surgical History Cardiac Surgeries: Sugical HX of: Cardiac Catheterization (Denies stent placement; No blockages 2 weeks ago.) HEENT Surgeries: Surgical HX of: Eye Surgery (CATARACTS), Tonsilectomy & Adenoidectomy Abdominal Surgeries: Surgical HX of: Appendectomy, Colonoscopy, EGD, Hernia Repair (ROBOTIC VENTRAL) - Family History Family History: Reports;: Family Cancer (DAD) Comment Only: Additional Family History (mother-Alheimer) - Social History Smoking Status: Former smoker Frequency of Alcohol Use: None Type of Drug Use: None Physical Examination Vital Signs Temp Pulse Resp BP Pulse Ox 98.0 F 63 18 168/97 94 L 11/13/16 06:27 11/13/16 06:27 11/13/16 06:27 11/13/16 06:27 11/13/16 06:27 Other: General appearance: Pleasant and cooperative. Normal weight, no acute distress. - Head Head exam: Present: normal inspection, normocephalic, atraumatic. Absent: hematoma, laceration - Eye Eye exam: Present: EOMI. Absent: conjunctival injection, nystagmus, periorbital swelling, scleral icterus, laceration to eyelids Pupils: Present: PERRL. Absent: constricted, dilated, fixed, irregular, unequal - ENT ENT exam: Present: normal exam, normal external ear exam - Neck Neck exam: Present: normal inspection. Absent: lymphadenopathy, meningismus, tenderness, thyromegaly - Respiratory Respiratory exam: Present: mild rhonchi to right lower lobe, mild expiratory wheezes in bilateral bases, otherwise clear to auscultation. Absent: accessory muscle use, chest wall tenderness - Cardiovascular Cardiovascular exam: Present: regular rate and rhythm. Absent: carotid bruit, gallop, JVD, rubs - GI/Abdominal GI/Abdominal exam: Present: hypoactive bowel sounds, tender, abdominal binder in place from recent surgery. - Extremities Exam Extremities exam: Present: normal inspection, normal capillary refill. Upper extremity pulses 2+. Lower extremity pulses 2+. Absent: calf tenderness, edema - Back Exam Back exam: Present: normal inspection. Absent: muscle spasm, vertebral tenderness - Neurological Exam Neurological exam: Present: alert, oriented X3, grossly intact without resting or essential tremor - Psychiatric Psychiatric exam: Present: normal affect, normal mood - Skin Skin exam: Present: normal color, warm, dry, intact. Absent: cyanosis, diaphoretic, rash, urticaria Result/EKG - Labs CBC & BMP: 11/15/16 01:37 11/15/16 01:37 Lab Results: I have reviewed the past 24 hour labs Labs: Laboratory Results - last 24 hr 11/14/16 11/14/16 11/14/16 11:28 12:40 16:14 WBC 16.7 H RBC 3.42 L Hgb 10.7 L Hct 34.7 L MCV 101.5 MCH 31 MCHC 30.8 L RDW 14.4 Plt Count 167 MPV 10.9 Neut % (Auto) 82.2 H Lymph % (Auto) 3.9 L [place] % (Auto) 13.0 H Eos % (Auto) 0.1 Baso % (Auto) 0.1 Neut # (Auto) 13.7 H Lymph # (Auto) 0.7 L [place] # (Auto) 2.2 H Eos # (Auto) 0.0 Baso # (Auto) 0.0 Total Counted 100 Immature Gran % 0.7 Nucleated RBC % 0.0 Immature Gran # 0.12 Segmented Neutrophils 91 H Lymphocytes 3 L Monocytes 6 Nucleated RBCs # 0.00 Platelet Estimate Adequate Poikilocytosis Slight ABG pH ABG pCO2 ABG pO2 ABG HCO3 ABG Total CO2 ABG O2 Saturation ABG Base Excess FiO2 Sodium Potassium Chloride Carbon Dioxide Anion Gap BUN Creatinine GFR Calculation BUN/Creatinine Ratio Glucose POC Glucose 130 H 161 H Calculated Osmolality Calcium Magnesium 11/14/16 11/14/16 11/15/16 20:08 22:50 01:37 WBC 19.9 H RBC 3.50 L Hgb 10.9 L Hct 35.1 L MCV 100.3 MCH 31 MCHC 31.1 L RDW 14.5 Plt Count 160 MPV 11.2 Neut % (Auto) 81.1 H Lymph % (Auto) 5.5 L [place] % (Auto) 12.6 Eos % (Auto) 0.0 Baso % (Auto) 0.2 Neut # (Auto) 16.2 H Lymph # (Auto) 1.1 L [place] # (Auto) 2.5 H Eos # (Auto) 0.0 Baso # (Auto) 0.0 Total Counted Immature Gran % 0.6 Nucleated RBC % 0.0 Immature Gran # 0.11 Segmented Neutrophils Lymphocytes Monocytes Nucleated RBCs # 0.00 Platelet Estimate Poikilocytosis ABG pH 7.331 L ABG pCO2 51.9 H ABG pO2 52.4 L ABG HCO3 24.9 ABG Total CO2 25.0 ABG O2 Saturation 86.6 L ABG Base Excess 0.8 FiO2 28.00 Sodium Potassium Chloride Carbon Dioxide Anion Gap BUN Creatinine GFR Calculation BUN/Creatinine Ratio Glucose POC Glucose 151 H Calculated Osmolality Calcium Magnesium 11/15/16 11/15/16 11/15/16 01:37 03:24 07:15 WBC RBC Hgb Hct MCV MCH MCHC RDW Plt Count MPV Neut % (Auto) Lymph % (Auto) [place] % (Auto) Eos % (Auto) Baso % (Auto) Neut # (Auto) Lymph # (Auto) [place] # (Auto) Eos # (Auto) Baso # (Auto) Total Counted Immature Gran % Nucleated RBC % Immature Gran # Segmented Neutrophils Lymphocytes Monocytes Nucleated RBCs # Platelet Estimate Poikilocytosis ABG pH 7.336 L ABG pCO2 52.0 H ABG pO2 39.7 L* ABG HCO3 25.0 ABG Total CO2 25.3 ABG O2 Saturation 73.6 L ABG Base Excess 1.1 FiO2 36.00 Sodium 141 Potassium 4.9 Chloride 104 Carbon Dioxide 26 Anion Gap 15.9 H BUN 28 H Creatinine 1.40 H GFR Calculation 65 BUN/Creatinine Ratio 20.00 Glucose 104 POC Glucose 123 H Calculated Osmolality 286.3 Calcium 8.0 L Magnesium 2.2 11/15/16 07:17 WBC RBC Hgb Hct MCV MCH MCHC RDW Plt Count MPV Neut % (Auto) Lymph % (Auto) [place] % (Auto) Eos % (Auto) Baso % (Auto) Neut # (Auto) Lymph # (Auto) [place] # (Auto) Eos # (Auto) Baso # (Auto) Total Counted Immature Gran % Nucleated RBC % Immature Gran # Segmented Neutrophils Lymphocytes Monocytes Nucleated RBCs # Platelet Estimate Poikilocytosis ABG pH 7.359 ABG pCO2 48.9 H ABG pO2 58.2 L ABG HCO3 25.6 ABG Total CO2 25.1 ABG O2 Saturation 90.4 L ABG Base Excess 1.5 FiO2 60.00 Sodium Potassium Chloride Carbon Dioxide Anion Gap BUN Creatinine GFR Calculation BUN/Creatinine Ratio Glucose POC Glucose Calculated Osmolality Calcium Magnesium - EKG EKG results: interpreted by me, sinus rhythm <Larry Leon - Last Filed: 11/15/16 15:41> History of Present Illness - Consult Narrative History of present illness: Cardiology addendum patient examined and chart reviewed. Status post diagnostic laparoscopy with diaphragmatic hernia repair with mesh and ventral hernia repair with mesh by Dr. Whittaker November 13, 2016. Patient developed postop rapid atrial fibrillation converted with IV Cardizem. Patient has a history of paroxysmal atrial fibrillation and has been on amiodarone. The dose was cut back to 100 mg daily this past April. No history of FL or heart failure. However the chest x-ray does show cardiomegaly and CHF. Patient is a type II diabetic and takes Amaryl. He does have hypertension takes Cardura. He quit smoking in 2000 but did smoke 2 packs per day since age 13. He quit alcohol completely in 2014 because of weakness and fatigue. He is 5 feet 8 inches tall and weighs 229 pounds. Weight is been stable. No history of ulcer disease. He denies melena. Father of lung cancer age 40 was a heavy smoker. Mother from pneumonia age 88. Sister is 63 and in good health. EKG shows atrial fib with right bundle branch block and ST-T wave changes Impression Status post diaphragmatic hernia repair with mesh and ventral hernia repair with mesh November 13 Postop atrial fibrillation Chest x-ray shows cardiomegaly and CHF No history of angina or heart failure Type 2 diabetes Remote tobacco abuse quit 2014 but former heavy smoker Obstructive sleep apnea Paroxysmal atrial fibrillation on amiodarone 100 mg daily Plan Echo Doppler Lasix 40 mg IV daily CPAP nightly Lisinopril 5 mg daily Patient is followed by Dr. Cormier and will arrange for office follow-up visit with her BMP in a.m. Increase amiodarone 200 mg daily CC: Antoni Whittaker MD Physical Examination Vital Signs Temp Pulse Resp BP Pulse Ox 98.0 F 63 18 168/97 94 L 11/13/16 06:27 11/13/16 06:27 11/13/16 06:27 11/13/16 06:27 11/13/16 06:27 Result/EKG - Labs CBC & BMP: 11/15/16 01:37 11/15/16 01:37 Labs: Laboratory Results - last 24 hr 11/14/16 11/14/16 11/14/16 16:14 20:08 22:50 WBC RBC Hgb Hct MCV MCH MCHC RDW Plt Count MPV Neut % (Auto) Lymph % (Auto) [place] % (Auto) Eos % (Auto) Baso % (Auto) Neut # (Auto) Lymph # (Auto) [place] # (Auto) Eos # (Auto) Baso # (Auto) Immature Gran % Nucleated RBC % Immature Gran # Nucleated RBCs # ABG pH 7.331 L ABG pCO2 51.9 H ABG pO2 52.4 L ABG HCO3 24.9 ABG Total CO2 25.0 ABG O2 Saturation 86.6 L ABG Base Excess 0.8 FiO2 28.00 Sodium Potassium Chloride Carbon Dioxide Anion Gap BUN Creatinine GFR Calculation BUN/Creatinine Ratio Glucose POC Glucose 161 H 151 H Calculated Osmolality Calcium Magnesium 11/15/16 11/15/16 11/15/16 01:37 01:37 03:24 WBC 19.9 H RBC 3.50 L Hgb 10.9 L Hct 35.1 L MCV 100.3 MCH 31 MCHC 31.1 L RDW 14.5 Plt Count 160 MPV 11.2 Neut % (Auto) 81.1 H Lymph % (Auto) 5.5 L [place] % (Auto) 12.6 Eos % (Auto) 0.0 Baso % (Auto) 0.2 Neut # (Auto) 16.2 H Lymph # (Auto) 1.1 L [place] # (Auto) 2.5 H Eos # (Auto) 0.0 Baso # (Auto) 0.0 Immature Gran % 0.6 Nucleated RBC % 0.0 Immature Gran # 0.11 Nucleated RBCs # 0.00 ABG pH 7.336 L ABG pCO2 52.0 H ABG pO2 39.7 L* ABG HCO3 25.0 ABG Total CO2 25.3 ABG O2 Saturation 73.6 L ABG Base Excess 1.1 FiO2 36.00 Sodium 141 Potassium 4.9 Chloride 104 Carbon Dioxide 26 Anion Gap 15.9 H BUN 28 H Creatinine 1.40 H GFR Calculation 65 BUN/Creatinine Ratio 20.00 Glucose 104 POC Glucose Calculated Osmolality 286.3 Calcium 8.0 L Magnesium 2.2 11/15/16 11/15/16 11/15/16 07:15 07:17 11:23 WBC RBC Hgb Hct MCV MCH MCHC RDW Plt Count MPV Neut % (Auto) Lymph % (Auto) [place] % (Auto) Eos % (Auto) Baso % (Auto) Neut # (Auto) Lymph # (Auto) [place] # (Auto) Eos # (Auto) Baso # (Auto) Immature Gran % Nucleated RBC % Immature Gran # Nucleated RBCs # ABG pH 7.359 ABG pCO2 48.9 H ABG pO2 58.2 L ABG HCO3 25.6 ABG Total CO2 25.1 ABG O2 Saturation 90.4 L ABG Base Excess 1.5 FiO2 60.00 Sodium Potassium Chloride Carbon Dioxide Anion Gap BUN Creatinine GFR Calculation BUN/Creatinine Ratio Glucose POC Glucose 123 H 138 H Calculated Osmolality Calcium Magnesium
[2016-11-15] MEDS: LISINOPRIL 5 MG TABLET PO SCH (16:23)
--- NOTE | 2016-11-15 17:16 | ECHO Report ---
Peter Salas Exam Date: 11/15/2016 11:27 Referring Physician: Technologist: Age: 66 Ht (in): 68 Wt (lb): 232 Gender: M Exam Location: [facility] Echo Indications: s/p Robotic laparoscopic hernia repair, hx atrial fib, NIDDM, Essential (primary) hypertension, Chronic kidney disease, unspecified, Heart failure, unspecified, COPD, NIDIA BP: 144 / 73 HR: 83 Rhythm: Sinus Technical Quality: Fair IMPRESSIONS EF 60 %. Grade I/IV diastolic dysfunction (abnormal relaxation filling pattern), normal to mildly elevated filling pressures. The right ventricle is normal in size and function. The right atrium is mildly enlarged. The left atrium is mildly enlarged. Morphologically normal mitral valve. Trace mitral valve regurgitation. Aortic valve sclerosis. Trace aortic valve regurgitation. Moderate tricuspid valve regurgitation. PAP 50 mmHG. Pulmonic valve not well visualized. Normal pericardium without effusion. Normal ascending aorta dimension. MEASUREMENTS (Male / Female) Normal Values 2D ECHO LV Diastolic Diameter PLAX 5.4 cm 4.2 - 5.9 / 3.9 - 5.3 cm LV Systolic Diameter PLAX 3.1 cm LV Fractional Shortening PLAX 43.3 % IVS Diastolic Thickness 1.2 cm 0.6 - 1.0 / 0.6 - 0.9 cm LVPW Diastolic Thickness 1.2 cm 0.6 - 1.0 / 0.6 - 0.9 cm RV Internal Dim ED PLAX 3.6 cm Aortic Root Diameter 3.7 cm LA Systolic Diameter LX 4.5 cm 3.0 - 4.0 / 2.7 - 3.8 cm DOPPLER TR Peak Velocity 308.0 cm/s TR Peak Gradient 37.9 mmHg FINDINGS Left Ventricle EF 60 %. Grade I/IV diastolic dysfunction (abnormal relaxation filling pattern), normal to mildly elevated filling pressures. Right Ventricle The right ventricle is normal in size and function. Right Atrium The right atrium is mildly enlarged. Left Atrium The left atrium is mildly enlarged. Mitral Valve Morphologically normal mitral valve. Trace mitral valve regurgitation. Aortic Valve Aortic valve sclerosis. Trace aortic valve regurgitation. Tricuspid Valve Morphologically normal tricuspid valve. Moderate tricuspid valve regurgitation. PAP 50 mmHG. Pulmonic Valve Pulmonic valve not well visualized. Pericardium Normal pericardium without effusion. Aorta Normal ascending aorta dimension. Hoang Leon (Electronically Signed) Final Date: 15 November 2016 17:15
[2016-11-15] MEDS: DOXAZOSIN 4 MG TABLET PO SCH (21:52)
[2016-11-16] MEDS: ONDANSETRON 4 MG/2 ML VIAL IV SCH ×6 (02:07→22:21)
[2016-11-16] MEDS: ALBUTEROL/IPRATROPIUM 3 ML NEB RESP TX SCH ×4 (02:09→19:34)
[2016-11-16] MEDS: DILTIAZEM INJ 100 MG in SODIUM CHLORIDE 0.9% 100 ML IV SCH (04:33)
[2016-11-16 06:05] LABS: Basophils % 0.1 % (0.0-0.8); Eosinophils % 0.1 % (0.00-10.9); Hematocrit 29.7 VOL% (42.0-52.0); Hemoglobin 9.3 GM/DL (14.0-18.0); Immature Granulocytes % 0.7 %; Immature Granulocytes Absolute 0.12 #; Mean Corpuscular HGB Conc 31.3 GM/DL (32-36); Mean Corpuscular Hemoglobin 31 PG (27-34); Mean Platelet Volume 11.4 FL (9.6-12.0); Monocytes # 1.8 10*3/uL (0.11-0.8); Monocytes % 11.2 % (1.7-12.7); Neutrophils # 13.2 10*3/uL (1.4-7.4); Neutrophils % 81.9 % (38.7-73.9); Platelet Count 174 T/CUMM (130-400); Red Blood Count 3.03 MC/CUMM (3.8-5.5); Red Cell Distribution Width 14.3 % (9.3-17.3); White Blood Count 16.1 T/CUMM (4-12)
[2016-11-16] MEDS: HEPARIN 5,000 UNIT/1 ML VIAL SUBCUT SCH ×3 (06:40→22:19)
[2016-11-16 06:43] LABS: Calcium 8.2 MG/DL (8.5-10.1); Magnesium 2.7 MG/DL (1.8-2.4); Osmolality,Calculated 286.3 MOS/KG (273-304); Potassium 4.6 MMOL/L (3.5-5.1)
--- NOTE | 2016-11-16 07:20 | XRay Report ---
XR chest 1V portable Indication: Ventilator patient Comparison: 15 November 2016 Findings: The heart and mediastinum are normal in size and configuration. The pulmonary vascularity is increased similar to previous study. There is right pleural effusion and right lung density similar to previous exam. No other infiltrates or interval change is seen. Impression: No significant change. PROCEDURE INTERPRETED AT [facility] DEPARTMENT OF RADIOLOGY Final Report Signed by: Dr. Kurt Treviño
--- NOTE | 2016-11-16 07:21 | Cardiology Progress Note ---
Cardiology - PN: Subj Interval history: Cardiology note 66-year-old man postop day #1 diaphragmatic hernia repair and ventral hernia repair with mesh Patient developed congestive heart failure due to diastolic dysfunction and atrial fibrillation and fluids. Currently in sinus rhythm after IV Cardizem Blood pressure 130/74 O2 sat 95 on 2 L cannula Regular rhythm no gallop Decreased breath sounds few basilar crackles Incision a little red but no losing No leg edema Lab data today White count 16.1 hemoglobin 9.3 hematocrit 29.1 Sodium 141 potassium 4.3 chloride 105 CO2 28 BUN 30 creatinine 1.10 Magnesium 2.7 glucose 103 Echo showed ejection fraction of 60% with grade 1 diastolic dysfunction, mildly dilated left atrium, aortic valve sclerosis, moderate TR, PA pressure 45-50 with no effusion Impression Postop day #1 diaphragmatic hernia repair and ventral hernia repair with mesh Postop atrial fibrillation with CHF Diastolic dysfunction Obstructive sleep apnea Tobacco abuse in remission History of paroxysmal atrial relation on amiodarone Plan IV Lasix Lisinopril CPAP Continue amiodarone 200 mg daily Transfer to telemetry when bed available Exam (Progress Note) - Constitutional Vitals: Period Temp Pulse Resp BP Sys/Padgett Pulse Ox Last 24 Hr 98 F-98.8 F 69-98 16-28 90-128/51-82 86-99 Result/EKG - Labs CBC & BMP: 11/16/16 05:07 11/16/16 05:07 Labs: Laboratory Results - last 24 hr 11/15/16 11/15/16 11/15/16 07:15 07:17 11:23 WBC RBC Hgb Hct MCV MCH MCHC RDW Plt Count MPV Neut % (Auto) Lymph % (Auto) Ramsey % (Auto) Eos % (Auto) Baso % (Auto) Neut # (Auto) Lymph # (Auto) Ramsey # (Auto) Eos # (Auto) Baso # (Auto) Immature Gran % Nucleated RBC % Immature Gran # Nucleated RBCs # ABG pH 7.359 ABG pCO2 48.9 H ABG pO2 58.2 L ABG HCO3 25.6 ABG Total CO2 25.1 ABG O2 Saturation 90.4 L ABG Base Excess 1.5 FiO2 60.00 Sodium Potassium Chloride Carbon Dioxide Anion Gap BUN Creatinine GFR Calculation BUN/Creatinine Ratio Glucose POC Glucose 123 H 138 H Calculated Osmolality Calcium Magnesium 11/15/16 11/15/16 11/16/16 16:16 21:12 05:07 WBC 16.1 H RBC 3.03 L Hgb 9.3 L Hct 29.7 L MCV 98.0 MCH 31 MCHC 31.3 L RDW 14.3 Plt Count 174 MPV 11.4 Neut % (Auto) 81.9 H Lymph % (Auto) 6.0 L Ramsey % (Auto) 11.2 Eos % (Auto) 0.1 Baso % (Auto) 0.1 Neut # (Auto) 13.2 H Lymph # (Auto) 1.0 L Ramsey # (Auto) 1.8 H Eos # (Auto) 0.0 Baso # (Auto) 0.0 Immature Gran % 0.7 Nucleated RBC % 0.0 Immature Gran # 0.12 Nucleated RBCs # 0.00 ABG pH ABG pCO2 ABG pO2 ABG HCO3 ABG Total CO2 ABG O2 Saturation ABG Base Excess FiO2 Sodium Potassium Chloride Carbon Dioxide Anion Gap BUN Creatinine GFR Calculation BUN/Creatinine Ratio Glucose POC Glucose 160 H 161 H Calculated Osmolality Calcium Magnesium 11/16/16 05:07 WBC RBC Hgb Hct MCV MCH MCHC RDW Plt Count MPV Neut % (Auto) Lymph % (Auto) Ramsey % (Auto) Eos % (Auto) Baso % (Auto) Neut # (Auto) Lymph # (Auto) Ramsey # (Auto) Eos # (Auto) Baso # (Auto) Immature Gran % Nucleated RBC % Immature Gran # Nucleated RBCs # ABG pH ABG pCO2 ABG pO2 ABG HCO3 ABG Total CO2 ABG O2 Saturation ABG Base Excess FiO2 Sodium 141 Potassium 4.6 Chloride 105 Carbon Dioxide 28 Anion Gap 12.6 BUN 30 H Creatinine 1.10 GFR Calculation 86 BUN/Creatinine Ratio 27.00 H Glucose 103 POC Glucose Calculated Osmolality 286.3 Calcium 8.2 L Magnesium 2.7 H
--- NOTE | 2016-11-16 08:05 | Pulmonology Progress Note ---
Pulmonary - PN: Subj Interval history: Patient is a 66-year-old white man that is overweight with COPD. Last winter he had pneumonia and respiratory failure and had a difficult time. He has severe coughing episode tore a muscle in his right rib cage. From there he developed a hernia. His breathing had done well he was doing much better. He came in to have his hernia repaired. He had repair of the diaphragmatic hernia and the abdominal wall hernia but he did not have to have a thoracotomy. Yesterday the patient had some shortness of breath and went into atrial fibrillation and heart failure. He says his breathing is much better today. He is back in a sinus rhythm. His oxygenation has been doing well and he did not require BiPAP last night. He feels like his chest soreness is a little better. His chest x-ray still looks a little wet. Overall he looks much better. Exam (Progress Note) - Constitutional Vitals: Period Temp Pulse Resp BP Sys/Padgett Pulse Ox Last 24 Hr 98 F-98.8 F 69-98 15-28 90-128/51-82 0-99 Exam: General appearance: no distress (He is alert and looks much more comfortable and is sitting up on low-flow oxygen.) - Head Head exam: Present: normal inspection, normocephalic - Eye Eye exam: Present: EOMI. Absent: scleral icterus Pupils: Present: NASH - ENT ENT exam: Present: normal exam - Neck Neck exam: Present: normal inspection. Absent: lymphadenopathy, thyromegaly - Respiratory Respiratory exam: Present: He has fair breath sounds bilaterally although there are little diminished in the right base. He is not wheezing but has some crackles in the bases. - Cardiovascular Cardiovascular exam: Present: regular rate and rhythm. He looks like in sinus rhythm now. Absent: gallop, systolic murmur - GI/Abdominal GI/Abdominal exam: Present: distended, tenderness, soft, other (He does have a drain in place). Absent: organomegaly - Extremities Exam Extremities exam: Absent: calf tenderness, edema - Neurological Exam Neurological exam: Present: alert, oriented X3. Absent: CN II-XII intact - Psychiatric Psychiatric exam: Present: normal affect - Skin Skin exam: Present: warm, dry Results - Labs CBC & BMP: 11/16/16 05:07 11/16/16 05:07 - Diagnostic Findings Procedure: Chest x-ray: image reviewed by me, report reviewed by me (Chest x- ray shows cardiomegaly and mild bibasilar changes.) Assessment and Plan (1) Diaphragmatic hernia Status: Acute Assessment and plan: Patient came in and had a right diaphragmatic hernia repaired along with abdominal wall hernia. He has a little trouble breathing is doing better now. He can move to a regular room. Current Visit: Yes (2) Abdominal wall hernia Status: Acute Assessment and plan: He has a drain in his abdominal wall but is doing okay. He is still very sore but is better. Current Visit: Yes (3) COPD (chronic obstructive pulmonary disease) Status: Chronic Assessment and plan: He has COPD and had a fairly rough night but is doing better now. He did not require BiPAP last night. He is tolerating his respiratory therapy and breathing better. Current Visit: Yes (4) Hypertension Status: Chronic Assessment and plan: His vital signs are stable at present. He had had atrial fibrillation but is back in a sinus rhythm now. He has some diastolic dysfunction and mild heart failure that is improving. Current Visit: No (5) Obstructive sleep apnea Status: Chronic Assessment and plan: He does use his CPAP but is not always compliant with this. Current Visit: No
[2016-11-16] MEDS: CEFTAROLINE 600 MG in SODIUM CHLORIDE 0.9% 100 ML IV SCH ×2 (08:41→22:20)
[2016-11-16] MEDS: FUROSEMIDE 40 MG/4 ML VIAL IV SCH (08:42)
[2016-11-16] MEDS: ASPIRIN EC 81 MG TABLET PO SCH (08:42)
[2016-11-16] MEDS: predniSONE 20 MG TABLET PO SCH (08:42)
[2016-11-16] MEDS: LISINOPRIL 5 MG TABLET PO SCH (08:43)
[2016-11-16] MEDS: AMIODARONE 200 MG TABLET PO SCH (08:43)
[2016-11-16] MEDS: INSULIN REGULAR 100 UNIT/ML SUBCUT SCH ×4 (08:44→22:40)
[2016-11-16] MEDS: FLUoxetine 20 MG CAPSULE PO SCH (08:44)
--- NOTE | 2016-11-16 10:48 | Event Note ---
General Surgery Progress Note Chief complaint This patient is a 66-year-old man with severe COPD on home oxygen who was admitted after laparoscopic lysis of adhesions with open repair of right sided abdominal wall, chest wall, and diaphragmatic hernia with mesh on 11/13/2016 Interval history This patient had a much improved night last night. He is tolerating his diet and passing gas and his pain is well controlled. He has had no further episodes of A. fib with RVR and he is diuresing well. He is off of fluids now. His MAYTE drain appears serosanguineous. He has no new complaints. Physical exam Afebrile with normal vital signs Chest is clear Heart is regular Abdominal exam is normal with expected postoperative tenderness. The incisions are clean and dry with no evidence of infection or bleeding. There is a small amount of drainage from the incision but there is not a lot of fluid apparent underneath this and there is no evidence of infection. MAYTE drain is serous and the output is decreasing. 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 If there is any evidence of cellulitis around the lower right chest wall incision this might need to be opened up. Continue monitoring MAYTE drain output Continue current pain regimen Increase activity and start ambulating Continue abdominal binder
[2016-11-16] MEDS: LACTATED RINGERS 1,000 ML IV SCH (18:37)
[2016-11-16] MEDS: DOXAZOSIN 4 MG TABLET PO SCH (22:19)
[2016-11-17] MEDS: ALBUTEROL/IPRATROPIUM 3 ML NEB RESP TX SCH ×4 (00:35→19:20)
[2016-11-17] MEDS: ONDANSETRON 4 MG/2 ML VIAL IV SCH ×6 (02:04→21:39)
[2016-11-17] MEDS: DILTIAZEM INJ 100 MG in SODIUM CHLORIDE 0.9% 100 ML IV SCH (03:17)
[2016-11-17 05:33] LABS: Basophils % 0.1 % (0.0-0.8); Eosinophils # 0.1 10*3/uL (0.0-0.87); Eosinophils % 0.4 % (0.00-10.9); Hematocrit 30.6 VOL% (42.0-52.0); Hemoglobin 9.6 GM/DL (14.0-18.0); Immature Granulocytes % 0.5 %; Immature Granulocytes Absolute 0.07 #; Lymphocytes # 1.2 10*3/uL (1.4-4.0); Lymphocytes % 9.6 % (21.2-54.2); Mean Corpuscular HGB Conc 31.4 GM/DL (32-36); Mean Corpuscular Hemoglobin 31 PG (27-34); Mean Corpuscular Volume 98.4 FL (87-102); Monocytes # 1.2 10*3/uL (0.11-0.8); Monocytes % 9.4 % (1.7-12.7); Neutrophils # 10.4 10*3/uL (1.4-7.4); Platelet Count 207 T/CUMM (130-400); Red Blood Count 3.11 MC/CUMM (3.8-5.5); Red Cell Distribution Width 14.5 % (9.3-17.3)
[2016-11-17 05:55] LABS: Calcium 8.2 MG/DL (8.5-10.1); Magnesium 2.6 MG/DL (1.8-2.4); Osmolality,Calculated 289.8 MOS/KG (273-304); Potassium 4.3 MMOL/L (3.5-5.1)
[2016-11-17] MEDS: HEPARIN 5,000 UNIT/1 ML VIAL SUBCUT SCH ×3 (06:36→21:46)
[2016-11-17] MEDS: INSULIN REGULAR 100 UNIT/ML SUBCUT SCH ×4 (08:37→21:38)
[2016-11-17] MEDS: AMIODARONE 200 MG TABLET PO SCH (08:58)
[2016-11-17] MEDS: predniSONE 20 MG TABLET PO SCH (08:58)
[2016-11-17] MEDS: FUROSEMIDE 40 MG/4 ML VIAL IV SCH (08:58)
[2016-11-17] MEDS: ASPIRIN EC 81 MG TABLET PO SCH (08:58)
[2016-11-17] MEDS: FLUoxetine 20 MG CAPSULE PO SCH (08:58)
[2016-11-17] MEDS: LISINOPRIL 5 MG TABLET PO SCH (08:58)
--- NOTE | 2016-11-17 09:01 | XRay Report ---
Portable chest Date: 11/17/2016 Clinical history: Ventilator Comparison: 11/16/2016 Technique: Portable AP sitting chest Findings: Persistent cardiomegaly with stable right pleural catheter. Reduced parenchymal and pleural findings at the lung bases with no pneumothorax. Stable mediastinum and osseous structures. Impression: Improved CHF/bilateral pneumonia with smaller pleural effusions. Stable right chest catheter. PROCEDURE INTERPRETED AT [facility] DEPARTMENT OF RADIOLOGY Final Report Signed by: Dr. Zofia Torrez
[2016-11-17] MEDS: CEFTAROLINE 600 MG in SODIUM CHLORIDE 0.9% 100 ML IV SCH ×2 (09:03→21:39)
[2016-11-17] MEDS ORDERED: MAGNESIUM HYDROXIDE SUSP 30 ML UDCUP PO PRN (09:30)
--- NOTE | 2016-11-17 09:31 | Cardiology Progress Note ---
Cardiology - PN: Subj Interval history: Cardiology note Postop day #2 diaphragmatic hernia repair and ventral hernia repair with mesh Postop atrial fib with CHF Telemetry shows sinus rhythm in the 70s on amiodarone O2 sat 94% on 2 L Blood pressure 130/70 Little tender at the incision site. Regular rhythm no murmur Decreased breath sounds few basilar crackles Abdomen benign Lab data today White count 13.0 hemoglobin 9.6 hematocrit 30.6 Sodium 144 potassium 4.3 chloride 105 CO2 32 BUN 25 creatinine 1.10 Impression Postop day #2 diaphragmatic and ventral hernia repair with mesh Postop atrial fibrillation with CHF Diastolic dysfunction Obstructive sleep apnea Obesity History paroxysmal atrial fibrillation Plan 40 mg IV Lasix Amiodarone 200 mg daily Lisinopril 5 mg daily CPAP nightly Discussed with and son Exam (Progress Note) - Constitutional Vitals: Period Temp Pulse Resp BP Sys/Padgett Pulse Ox Last 24 Hr 96.2 F-98.3 F 72-93 15-25 105-139/59-72 93-98 Result/EKG - Labs CBC & BMP: 11/17/16 04:51 11/17/16 04:51 Labs: Laboratory Results - last 24 hr 11/16/16 11/16/16 11/16/16 11:57 15:52 22:24 WBC RBC Hgb Hct MCV MCH MCHC RDW Plt Count MPV Neut % (Auto) Lymph % (Auto) [place] % (Auto) Eos % (Auto) Baso % (Auto) Neut # (Auto) Lymph # (Auto) [place] # (Auto) Eos # (Auto) Baso # (Auto) Immature Gran % Nucleated RBC % Immature Gran # Nucleated RBCs # Sodium Potassium Chloride Carbon Dioxide Anion Gap BUN Creatinine GFR Calculation BUN/Creatinine Ratio Glucose POC Glucose 129 H 169 H 181 H Calculated Osmolality Calcium Magnesium 11/17/16 11/17/16 04:51 04:51 WBC 13.0 H RBC 3.11 L Hgb 9.6 L Hct 30.6 L MCV 98.4 MCH 31 MCHC 31.4 L RDW 14.5 Plt Count 207 MPV 11.0 Neut % (Auto) 80.0 H Lymph % (Auto) 9.6 L [place] % (Auto) 9.4 Eos % (Auto) 0.4 Baso % (Auto) 0.1 Neut # (Auto) 10.4 H Lymph # (Auto) 1.2 L [place] # (Auto) 1.2 H Eos # (Auto) 0.1 Baso # (Auto) 0.0 Immature Gran % 0.5 Nucleated RBC % 0.0 Immature Gran # 0.07 Nucleated RBCs # 0.00 Sodium 144 Potassium 4.3 Chloride 105 Carbon Dioxide 32 Anion Gap 11.3 BUN 25 H Creatinine 1.10 GFR Calculation 86 BUN/Creatinine Ratio 22.00 H Glucose 93 POC Glucose Calculated Osmolality 289.8 Calcium 8.2 L Magnesium 2.6 H
[2016-11-17] MEDS: DOCUSATE SODIUM 100 MG CAPSULE PO SCH ×2 (11:03→21:38)
--- NOTE | 2016-11-17 11:06 | Event Note ---
He feels well. He has no shortness of breath. He does not have chest pain. He is afebrile with stable vital signs. We'll get him up more to a chair today and continue with pulmonary toilet. His chest x-ray looks okay.
[2016-11-17] MEDS: DOXAZOSIN 4 MG TABLET PO SCH (21:37)
[2016-11-18] MEDS: ALBUTEROL/IPRATROPIUM 3 ML NEB RESP TX SCH ×4 (00:07→20:42)
[2016-11-18] MEDS: DILTIAZEM INJ 100 MG in SODIUM CHLORIDE 0.9% 100 ML IV SCH (02:23)
[2016-11-18] MEDS: ONDANSETRON 4 MG/2 ML VIAL IV SCH ×6 (02:33→22:31)
[2016-11-18] MEDS: HEPARIN 5,000 UNIT/1 ML VIAL SUBCUT SCH ×3 (06:12→22:31)
[2016-11-18] MEDS: INSULIN REGULAR 100 UNIT/ML SUBCUT SCH ×4 (08:40→22:32)
[2016-11-18] MEDS: DOCUSATE SODIUM 100 MG CAPSULE PO SCH ×2 (08:47→22:30)
[2016-11-18] MEDS: FLUoxetine 20 MG CAPSULE PO SCH (08:47)
[2016-11-18] MEDS: ASPIRIN EC 81 MG TABLET PO SCH (08:47)
[2016-11-18] MEDS: predniSONE 20 MG TABLET PO SCH (08:47)
[2016-11-18] MEDS: LISINOPRIL 5 MG TABLET PO SCH (08:47)
[2016-11-18] MEDS: AMIODARONE 200 MG TABLET PO SCH (08:47)
[2016-11-18] MEDS: FUROSEMIDE 40 MG/4 ML VIAL IV SCH (08:48)
[2016-11-18] MEDS: CEFTAROLINE 600 MG in SODIUM CHLORIDE 0.9% 100 ML IV SCH ×2 (08:48→22:31)
--- NOTE | 2016-11-18 11:21 | Cardiology Progress Note ---
Cardiology - PN: Subj Interval history: Cardiology note Postop day #3 diaphragmatic hernia and ventral hernia repair with mesh Postop atrial fibrillation with CHF Patient converted back to sinus IV Cardizem and amiodarone No temperature Chest x-ray shows improved CHF Regular rhythm no gallop Decreased breath sounds bibasilar crackles Abdomen benign No leg edema Impression Postop day #3 diaphragmatic and ventral repair with mesh Postop atrial fibrillation with CHF Diastolic dysfunction Obstructive sleep apnea Obesity History paroxysmal atrial fibrillation Plan Continue amiodarone 200 mg daily Continue lisinopril 5 mg daily Continue Lasix 40 mg IV daily CPAP nightly BMP in a.m. Incentive spirometry encouraged Exam (Progress Note) - Constitutional Vitals: Period Temp Pulse Resp BP Sys/Padgett Pulse Ox Last 24 Hr 97.7 F-98.8 F 67-83 15-24 115-135/56-72 92-99 Result/EKG - Labs CBC & BMP: 11/17/16 04:51 11/17/16 04:51 Labs: Laboratory Results - last 24 hr 11/17/16 11/17/16 11/17/16 07:10 11:26 16:10 POC Glucose 80 110 H 179 H 11/17/16 11/18/16 19:23 07:35 POC Glucose 158 H 91
--- NOTE | 2016-11-18 17:40 | Pulmonology Progress Note ---
Pulmonary - PN: Subj Interval history: Patient doing well, no complaints of shortness of breath, or cough. No orthopnea. Doesn't appear to have any pulmonary issues at this time. Continue to use home CPAP at night. Exam (Progress Note) - Constitutional Vitals: Period Temp Pulse Resp BP Sys/Padgett Pulse Ox Last 24 Hr 97.7 F-99.3 F 67-77 15-20 103-135/55-72 91-99 Results - Labs CBC & BMP: 11/17/16 04:51 11/17/16 04:51
[2016-11-18] MEDS: DOXAZOSIN 4 MG TABLET PO SCH (22:31)
[2016-11-19] MEDS: ALBUTEROL/IPRATROPIUM 3 ML NEB RESP TX SCH ×3 (01:30→15:34)
[2016-11-19] MEDS: DILTIAZEM INJ 100 MG in SODIUM CHLORIDE 0.9% 100 ML IV SCH (03:01)
[2016-11-19 05:29] LABS: Basophils % 0.3 % (0.0-0.8); Eosinophils # 0.2 10*3/uL (0.0-0.87); Hematocrit 29.8 VOL% (42.0-52.0); Hemoglobin 9.5 GM/DL (14.0-18.0); Immature Granulocytes % 1.2 %; Immature Granulocytes Absolute 0.13 #; Lymphocytes # 1.4 10*3/uL (1.4-4.0); Lymphocytes % 12.6 % (21.2-54.2); Mean Corpuscular HGB Conc 31.9 GM/DL (32-36); Mean Corpuscular Hemoglobin 30 PG (27-34); Mean Corpuscular Volume 95.5 FL (87-102); Mean Platelet Volume 10.9 FL (9.6-12.0); Monocytes # 1.1 10*3/uL (0.11-0.8); Monocytes % 10.4 % (1.7-12.7); Neutrophils % 73.5 % (38.7-73.9); Platelet Count 231 T/CUMM (130-400); Red Blood Count 3.12 MC/CUMM (3.8-5.5); Red Cell Distribution Width 14.5 % (9.3-17.3); White Blood Count 10.9 T/CUMM (4-12)
[2016-11-19] MEDS: ONDANSETRON 4 MG/2 ML VIAL IV SCH ×4 (05:29→14:04)
[2016-11-19] MEDS: HEPARIN 5,000 UNIT/1 ML VIAL SUBCUT SCH ×2 (05:48→14:05)
[2016-11-19 05:58] LABS: Calcium 8.3 MG/DL (8.5-10.1); Osmolality,Calculated 287.8 MOS/KG (273-304); Potassium 4.2 MMOL/L (3.5-5.1)
--- NOTE | 2016-11-19 07:36 | Event Note ---
General Surgery Progress Note Chief complaint This patient is a 66-year-old man with severe COPD on home oxygen who was admitted after laparoscopic lysis of adhesions with open repair of right sided abdominal wall, chest wall, and diaphragmatic hernia with mesh on 11/13/2016 Interval history The patient had an uneventful weekend. He is resting comfortably this morning. His pain is well controlled. He is breathing well on his own. Physical exam Afebrile with normal vital signs Chest is clear Heart is regular Abdominal exam is normal with expected postoperative tenderness. The incisions are clean and dry with no evidence of infection or bleeding The MAYTE drain is serosanguineous and the output is still high and was recorded at over 500 cc yesterday. Labs Reviewed Unremarkable labs today Imaging None new Assessment and plan The patient is doing well and I think he is ready for discharge. He will need home health for drain management and we will send him home on a course of p.o. pain medication.
[2016-11-19] MEDS: INSULIN REGULAR 100 UNIT/ML SUBCUT SCH ×2 (08:09→12:38)
[2016-11-19] MEDS: LISINOPRIL 5 MG TABLET PO SCH (08:44)
[2016-11-19] MEDS: FLUoxetine 20 MG CAPSULE PO SCH (08:44)
[2016-11-19] MEDS: predniSONE 20 MG TABLET PO SCH (08:44)
[2016-11-19] MEDS: AMIODARONE 200 MG TABLET PO SCH (08:44)
[2016-11-19] MEDS: ASPIRIN EC 81 MG TABLET PO SCH (08:44)
[2016-11-19] MEDS: DOCUSATE SODIUM 100 MG CAPSULE PO SCH (08:44)
[2016-11-19] MEDS: CEFTAROLINE 600 MG in SODIUM CHLORIDE 0.9% 100 ML IV SCH (08:45)
[2016-11-19] MEDS: FUROSEMIDE 40 MG/4 ML VIAL IV SCH (08:45)
--- NOTE | 2016-11-19 10:14 | Pulmonology Progress Note ---
Pulmonary - PN: Subj Interval history: Patient is a 66-year-old white man that is overweight with COPD. Last winter he had pneumonia and respiratory failure and had a difficult time. He has severe coughing episode tore a muscle in his right rib cage. From there he developed a hernia. His breathing had done well he was doing much better. He came in to have his hernia repaired. He had repair of the diaphragmatic hernia and the abdominal wall hernia but he did not have to have a thoracotomy. For several days he had a difficult course but is doing much better now. He feels like his breathing is doing well and he is coughing okay. His abdominal soreness is better. He will probably go home with the drain in place. He does have CPAP and oxygen at home. He will stay on low-dose prednisone. Overall he is doing well. Exam (Progress Note) - Constitutional Vitals: Period Temp Pulse Resp BP Sys/Padgett Pulse Ox Last 24 Hr 97.8 F-99.3 F 66-78 17-20 103-127/54-71 91-98 Exam: General appearance: no distress (He is alert and looks much more comfortable. He is not having any respiratory distress.) - Head Head exam: Present: normal inspection, normocephalic - Eye Eye exam: Present: EOMI. Absent: scleral icterus Pupils: Present: NASH - ENT ENT exam: Present: normal exam - Neck Neck exam: Present: normal inspection. Absent: lymphadenopathy, thyromegaly - Respiratory Respiratory exam: Present: He has fair breath sounds bilaterally although there are little diminished in the right base. He is not wheezing but has some crackles in the bases. - Cardiovascular Cardiovascular exam: Present: regular rate and rhythm. He looks like in sinus rhythm now. Absent: gallop, systolic murmur - GI/Abdominal GI/Abdominal exam: Present: distended, tenderness, soft, other (He does have a drain in place). Absent: organomegaly - Extremities Exam Extremities exam: Absent: calf tenderness, edema - Neurological Exam Neurological exam: Present: alert, oriented X3. Absent: CN II-XII intact, he is moving around well without problems. - Psychiatric Psychiatric exam: Present: normal affect - Skin Skin exam: Present: warm, dry Results - Labs CBC & BMP: 11/19/16 04:15 11/19/16 04:15 - Diagnostic Findings Procedure: Chest x-ray: image reviewed by me, report reviewed by me (Chest x- ray is stable with some minimal changes in the right base.) Assessment and Plan (1) Diaphragmatic hernia Status: Acute Assessment and plan: Patient came in and had a right diaphragmatic hernia repaired along with abdominal wall hernia. He had a little trouble postop early on but is doing much better now. His respiratory status is stable now. Current Visit: Yes (2) Abdominal wall hernia Status: Acute Assessment and plan: He has a drain in his abdominal wall but is doing okay. He says his soreness is better and wants to try it at home. He will go home with the drain in place Current Visit: Yes (3) COPD (chronic obstructive pulmonary disease) Status: Chronic Assessment and plan: He has been breathing well the last few days and his COPD is stable. Current Visit: Yes (4) Hypertension Status: Chronic Assessment and plan: His vital signs are stable at present. He had had atrial fibrillation but is back in a sinus rhythm now. He has some diastolic dysfunction and mild heart failure that is improving. At present he seems to be quite stable. Current Visit: No (5) Obstructive sleep apnea Status: Chronic Assessment and plan: He says he is using his CPAP at night Current Visit: No
--- NOTE | 2016-11-19 14:41 | Physician Query Form ---
CLICK EDIT DOCUMENT TO SELECT QUERY ANSWER --> OK --> SIGN Denise Clemens RN, CCDS Certified Clinical Component Assembler Supervisor W) [phone] (f) [phone] [email or web address]: Make your selection(s) from the choices in EACH section by typing an "x" and enter comments in the comment section. Please use your independent medical judgment in providing your response. This request does not imply that any particular answer is desired or expected. CLINICAL INDICATORS: (Providers should not edit this section) The medical record indicates that the patient was admitted for a hernia repair, "Postop atrial fibrillation with CHF" and the patient was treated with IV Lasix. CHF Clarify which of the following accurately represents the acuity of the above diagnosis. x( ) Acute ( ) Acute on chronic ( ) Chronic stable condition ( ) Remission ( ) Other, please specify: ( ) Clinically unable to determine COMMENTS: Use of terms such as suspected, likely, or probable (associated with a specific diagnosis that is being evaluated, monitored, or treated as if it exists) are acceptable and can be restated in the discharge summary if not ruled out. [id number]
--- NOTE | 2016-11-19 14:55 | Cardiology Progress Note ---
<Sherine Rodriguez - Last Filed: 11/19/16 15:09> Assessment and Plan (1) Diaphragmatic hernia Status: Resolved Assessment and plan: Postop day #3 diaphragmatic and ventral repair with mesh Current Visit: Yes (2) History of atrial fibrillation Status: Chronic Assessment and plan: Patient has history of paroxysmal atrial fibrillation. Postop he went into atrial ablation with rapid ventricular response. He has since converted with Cardizem and amiodarone. He has remained in normal sinus rhythm. Recommend that patient be discharged home on amiodarone 200 mg daily. He will follow with Dr. Cormier in 1-2 weeks. I discussed this case with Dr. Arroyo. The following cardiology discharge medications are recommended: Amiodarone 200 mg p.o. daily Eliquis 5 mg p.o. twice daily Cardura 4 mg p.o. at bedtime Lisinopril 5 mg p.o. daily Lasix 40 mg p.o. daily Current Visit: No (3) Hypertension Status: Chronic Current Visit: No Cardiology - PN: Subj Interval history: Mr. Salas is a 66 year old male who is followed by Dr. Cormier. He has a history of chronic obstructive pulmonary disease, steroid-dependent, paroxysmal atrial fibrillation, type 2 diabetes mellitus, obesity, obstructive sleep apnea (compliant), restless legs syndrome, congestive heart failure. He has risk factors significant for: diabetes, obesity, former smoker, sedentary lifestyle. Echocardiogram on May 03, 2016 revealed ejection fraction 60%. CT scan of the chest showed no acute disease, no interstitial disease, or pulmonary edema. He underwent cardiac catheterization June 18, 2016, no significant coronary artery disease was noted. He was admitted to the hospital on November 13, 2016 for laparoscopic lysis of adhesions with reduction of hernia contents with open repair of right diaphragmatic and ventral hernia with mesh. Postoperatively he developed atrial fibrillation with a rapid ventricular response. Cardiology was consulted at that time. Patient was successfully converted after IV Cardizem was initiated. Patient was seen and examined on telemetry. He is doing well and Dr. Whittaker feels that he is ready for discharge today. Surgical incision is healing well. Patient is without complaints this morning. He denies chest pain, heaviness and tightness. He also denies shortness of breath and heart racing/ palpitations. Patient remained in normal sinus rhythm without any overt arrhythmias or ectopy noted. Patient is stable for discharge from a cardiology standpoint. He will be given a follow-up appointment Dr. Cormier in 1-2 weeks with EKG, BMP and magnesium. Cardiology discharge medications: Amiodarone 200 mg p.o. daily Eliquis 5 mg p.o. twice daily Cardura 4 mg p.o. at bedtime Lisinopril 5 mg p.o. daily Lasix 40 mg p.o. daily Exam (Progress Note) - Constitutional Vitals: Period Temp Pulse Resp BP Sys/Padgett Pulse Ox Last 24 Hr 97.8 F-99.3 F 66-79 16-20 98-127/40-71 91-98 General appearance: normal weight, no acute distress - Head Head exam: Present: normal inspection, normocephalic, atraumatic - Neck Neck exam: Present: normal inspection - Respiratory Respiratory exam: Present: clear to auscultation bilaterally. Absent: accessory muscle use, chest wall tenderness, rales, rhonchi, stridor, wheezes - Cardiovascular Cardiovascular exam: Present: regular rate and rhythm. Absent: gallop, rubs - GI/Abdominal GI/Abdominal exam: Present: other (Abdominal binder and MAYTE drain intact.). Absent: firm, mass - Extremities Exam Extremities exam: Present: normal inspection, normal capillary refill. Absent: calf tenderness, edema - Neurological Exam Neurological exam: Present: alert, oriented X3, normal gait - Psychiatric Psychiatric exam: Present: normal affect, normal mood. Absent: agitated, anxious - Skin Skin exam: Present: normal color, warm, dry Result/EKG - Labs CBC & BMP: 11/19/16 04:15 11/19/16 04:15 Lab Results: I have reviewed the past 24 hour labs Labs: Laboratory Results - last 24 hr 11/18/16 11/18/16 11/18/16 11:56 15:58 19:42 WBC RBC Hgb Hct MCV MCH MCHC RDW Plt Count MPV Neut % (Auto) Lymph % (Auto) [place] % (Auto) Eos % (Auto) Baso % (Auto) Neut # (Auto) Lymph # (Auto) [place] # (Auto) Eos # (Auto) Baso # (Auto) Immature Gran % Nucleated RBC % Immature Gran # Nucleated RBCs # Sodium Potassium Chloride Carbon Dioxide Anion Gap BUN Creatinine GFR Calculation BUN/Creatinine Ratio Glucose POC Glucose 115 H 155 H 186 H Calculated Osmolality Calcium 11/19/16 11/19/16 11/19/16 04:15 04:15 07:15 WBC 10.9 RBC 3.12 L Hgb 9.5 L Hct 29.8 L MCV 95.5 MCH 30 MCHC 31.9 L RDW 14.5 Plt Count 231 MPV 10.9 Neut % (Auto) 73.5 Lymph % (Auto) 12.6 L [place] % (Auto) 10.4 Eos % (Auto) 2.0 Baso % (Auto) 0.3 Neut # (Auto) 8.0 H Lymph # (Auto) 1.4 [place] # (Auto) 1.1 H Eos # (Auto) 0.2 Baso # (Auto) 0.0 Immature Gran % 1.2 Nucleated RBC % 0.0 Immature Gran # 0.13 Nucleated RBCs # 0.00 Sodium 144 Potassium 4.2 Chloride 104 Carbon Dioxide 33 H Anion Gap 11.2 BUN 20 H Creatinine 1.10 GFR Calculation 86 BUN/Creatinine Ratio 18.00 Glucose 87 POC Glucose 90 Calculated Osmolality 287.8 Calcium 8.3 L 11/19/16 11:27 WBC RBC Hgb Hct MCV MCH MCHC RDW Plt Count MPV Neut % (Auto) Lymph % (Auto) [place] % (Auto) Eos % (Auto) Baso % (Auto) Neut # (Auto) Lymph # (Auto) [place] # (Auto) Eos # (Auto) Baso # (Auto) Immature Gran % Nucleated RBC % Immature Gran # Nucleated RBCs # Sodium Potassium Chloride Carbon Dioxide Anion Gap BUN Creatinine GFR Calculation BUN/Creatinine Ratio Glucose POC Glucose 113 H Calculated Osmolality Calcium Specialty Discharge - Follow Up or Referrals Follow up with: Antoni Whittaker MD [Physician] - 11/29/16 10:30 am (Schedule f/u appt prior to discharge) Radha Cormier MD [Physician] - 12/05/16 10:50 am (Appointment with Dr. Cormier in 1-2 weeks with BMP, magnesium and EKG) <Dickson Arroyo - Last Filed: 11/19/16 16:15> Cardiology - PN: Subj Interval history: Patient personally interviewed and examined, chart reviewed. Discussed this patient's case with Sherine. The patient's had no further atrial fibrillation since he converted to sinus rhythm. This time he will be discharged to continue his amiodarone and L. He' ll follow with Dr. Cormier in one to 2 weeks. Discussed with the patient that he needs to let us know if he has any bleeding issues. Exam is as described. Exam (Progress Note) - Constitutional Vitals: Period Temp Pulse Resp BP Sys/Padgett Pulse Ox Last 24 Hr 97.8 F-99.1 F 66-79 16-20 98-122/40-71 93-98 Result/EKG - Labs CBC & BMP: 11/19/16 04:15 11/19/16 04:15 Labs: Laboratory Results - last 24 hr 11/18/16 11/18/16 11/18/16 11:56 15:58 19:42 WBC RBC Hgb Hct MCV MCH MCHC RDW Plt Count MPV Neut % (Auto) Lymph % (Auto) [place] % (Auto) Eos % (Auto) Baso % (Auto) Neut # (Auto) Lymph # (Auto) [place] # (Auto) Eos # (Auto) Baso # (Auto) Immature Gran % Nucleated RBC % Immature Gran # Nucleated RBCs # Sodium Potassium Chloride Carbon Dioxide Anion Gap BUN Creatinine GFR Calculation BUN/Creatinine Ratio Glucose POC Glucose 115 H 155 H 186 H Calculated Osmolality Calcium 11/19/16 11/19/16 11/19/16 04:15 04:15 07:15 WBC 10.9 RBC 3.12 L Hgb 9.5 L Hct 29.8 L MCV 95.5 MCH 30 MCHC 31.9 L RDW 14.5 Plt Count 231 MPV 10.9 Neut % (Auto) 73.5 Lymph % (Auto) 12.6 L [place] % (Auto) 10.4 Eos % (Auto) 2.0 Baso % (Auto) 0.3 Neut # (Auto) 8.0 H Lymph # (Auto) 1.4 [place] # (Auto) 1.1 H Eos # (Auto) 0.2 Baso # (Auto) 0.0 Immature Gran % 1.2 Nucleated RBC % 0.0 Immature Gran # 0.13 Nucleated RBCs # 0.00 Sodium 144 Potassium 4.2 Chloride 104 Carbon Dioxide 33 H Anion Gap 11.2 BUN 20 H Creatinine 1.10 GFR Calculation 86 BUN/Creatinine Ratio 18.00 Glucose 87 POC Glucose 90 Calculated Osmolality 287.8 Calcium 8.3 L 11/19/16 11/19/16 11:27 15:25 WBC RBC Hgb Hct MCV MCH MCHC RDW Plt Count MPV Neut % (Auto) Lymph % (Auto) [place] % (Auto) Eos % (Auto) Baso % (Auto) Neut # (Auto) Lymph # (Auto) [place] # (Auto) Eos # (Auto) Baso # (Auto) Immature Gran % Nucleated RBC % Immature Gran # Nucleated RBCs # Sodium Potassium Chloride Carbon Dioxide Anion Gap BUN Creatinine GFR Calculation BUN/Creatinine Ratio Glucose POC Glucose 113 H 167 H Calculated Osmolality Calcium
--- NOTE | 2016-11-19 15:49 | Discharge Summary ---
Hospital Course - Hospital Course Hospital Course: The patient is a 66-year-old male admitted postoperatively to the ICU status post diagnostic laparoscopy with lysis of adhesions which required open repair of ventral abdominal and diaphragmatic hernias. The patient with history of paroxysmal A. fib and COPD oxygen and steroid-dependent required ICU care postoperatively. He also went into A. fib with RVR postoperatively which responded well to Cardizem drip and sexually discharged in sinus rhythm. Both pulmonology and cardiology consultations were appreciated. Patient was ultimately transitioned to [facility] and discharged on the ER recommended to pharmacologic management from cardiology. He progressed well from a pulmonary standpoint requiring no further intervention and was discharged at baseline status. No additional complications to note. - Time spent with patient Time with patient DS: Greater than 30 minutes Diagnosis - Discharge Diagnosis (1) Atrial fibrillation with rapid ventricular response Status: Acute (2) Abdominal wall hernia Status: Acute (3) COPD (chronic obstructive pulmonary disease) Status: Chronic (4) Chronic kidney disease, stage 3 Status: Acute (5) CAD (coronary artery disease) Status: Acute (6) Obstructive sleep apnea Status: Chronic Specialty Discharge - Follow Up or Referrals Follow up with: Antoni Whittaker MD [Physician] - 11/29/16 10:30 am (Schedule f/u appt prior to discharge) Radha Cormier MD [Physician] - 12/05/16 10:50 am (Appointment with Dr. Cormier in 1-2 weeks with BMP, magnesium and EKG) Discharge Plan - Discharge Data Disposition: Home Health Service Condition at Discharge: Stable Discharge Diet: diabetic diet, low salt diet Activity: other (Avoid lifiting, pushing or pulling> 5lb until f/u appt) Hygiene: may shower, keep area(s) dry Contact your physician if you experience:: fever over 101, Difficulty voiding, Redness or swelling, Nausea/Vomiting, Shortness of breath, Bleeding, pain uncontrolled by pain medications (changes in color of fluid in MAYTE drain) Wound / Dressing Care Instructions: Keep surgical incisions clean, dry and covered. Change MAYTE drain dressing daily. Empty MAYTE drain twice daily and kep journal of amount of fluid emptied. Bring journal to f/u with Dr. Whittaker. - Discharge Medications New HYDROcodone/ACETAMIN 5-325 [[place] 5-325] 1 tablet PO Q6H PRN #20 tablet PRN Reason: Pain Moderate To Severe (4-10) Lisinopril [Prinivil] 5 mg PO DAILY #30 tablet Furosemide Tab [Lasix Tab] 40 mg PO DAILY #30 tablet Continue Fluoxetine HCl 40 mg PO DAILY Doxazosin [Cardura] 4 mg PO BEDTIME Albuterol Sulfate [Proair HFA] 2 puff INH BID Amiodarone Tab [Cordarone Tab] 100 mg PO DAILY predniSONE TAB [PredniSONE] See Taper PO DAILY Ergocalciferol (Vitamin D2) [Vitamin D2] 50,000 unit PO DIRECTED Apixaban [Eliquis] 5 mg PO BID #60 tablet Glimepiride [Amaryl] 1 mg PO DAILY Arformoterol Neb [Brovana] 15 mcg RESP TX RT BID Discontinued Aspirin [Ecotrin] 81 mg PO DAILY Furosemide Tab [Lasix Tab] 80 mg PO DAILY PRN PRN Reason: Edema - Follow Up or Referral Follow Up: Antoni Whittaker MD [Physician] - 11/29/16 10:30 am (Schedule f/u appt prior to discharge) Radha Cormier MD [Physician] - 12/05/16 10:50 am (Appointment with Dr. Cormier in 1-2 weeks with BMP, magnesium and EKG) - Forms/Instructions Instructions: Apixaban (By mouth), Atrial Fibrillation (DC), Open Herniorrhaphy (DC), Chronic Obstructive Pulmonary Disease (DC), COPD, Floor Nurse (GEN), Maikel J-P Drain Discharge Instructions Additional Discharge Instructions: Follow up PCP 7-10d Exam - Constitutional Vitals: Period Temp Pulse Resp BP Sys/Padgett Pulse Ox Last 24 Hr 97.8 F-99.3 F 66-79 16-20 98-127/40-71 91-98 General appearance: no acute distress - Eye Eye exam: Absent: conjunctival injection, scleral icterus - Respiratory Respiratory exam: Present: decreased breath sounds. Absent: rales, wheezes - Cardiovascular Cardiovascular exam: Present: regular rate and rhythm - GI/Abdominal GI/Abdominal exam: Present: normal bowel sounds, soft (appropriate p/o tenderness). Absent: distended - Extremities Exam Extremities exam: Absent: calf tenderness, edema - Neurological Exam Neurological exam: Present: alert, oriented X3 - Psychiatric Psychiatric exam: Present: normal affect, normal mood - Skin Skin exam: Present: normal color, warm. Absent: cyanosis Discharge Results Procedures and tests throughout hospitalization: 1. Diagnostic laparoscopy 2. Laparoscopic lysis of adhesions with reduction of hernia contents 3. Open repair of ventral abdominal wall hernia with mesh 4. Open repair of diaphragmatic hernia with mesh 5. Right sided abdominal wall component separation/myofascial release Labs on day of discharge: Labs from last 24 hours 11/19/16 11/19/16 11/19/16 11:27 07:15 04:15 WBC RBC Hgb Hct MCV MCH MCHC RDW Plt Count MPV Neut % (Auto) Lymph % (Auto) [place] % (Auto) Eos % (Auto) Baso % (Auto) Neut # (Auto) Lymph # (Auto) [place] # (Auto) Eos # (Auto) Baso # (Auto) Immature Gran % Nucleated RBC % Immature Gran # Nucleated RBCs # Sodium 144 Potassium 4.2 Chloride 104 Carbon Dioxide 33 H Anion Gap 11.2 BUN 20 H Creatinine 1.10 GFR Calculation 86 BUN/Creatinine Ratio 18.00 Glucose 87 POC Glucose 113 H 90 Calculated Osmolality 287.8 Calcium 8.3 L 11/19/16 11/18/16 11/18/16 04:15 19:42 15:58 WBC 10.9 RBC 3.12 L Hgb 9.5 L Hct 29.8 L MCV 95.5 MCH 30 MCHC 31.9 L RDW 14.5 Plt Count 231 MPV 10.9 Neut % (Auto) 73.5 Lymph % (Auto) 12.6 L [place] % (Auto) 10.4 Eos % (Auto) 2.0 Baso % (Auto) 0.3 Neut # (Auto) 8.0 H Lymph # (Auto) 1.4 [place] # (Auto) 1.1 H Eos # (Auto) 0.2 Baso # (Auto) 0.0 Immature Gran % 1.2 Nucleated RBC % 0.0 Immature Gran # 0.13 Nucleated RBCs # 0.00 Sodium Potassium Chloride Carbon Dioxide Anion Gap BUN Creatinine GFR Calculation BUN/Creatinine Ratio Glucose POC Glucose 186 H 155 H Calculated Osmolality Calcium 11/18/16 11:56 WBC RBC Hgb Hct MCV MCH MCHC RDW Plt Count MPV Neut % (Auto) Lymph % (Auto) [place] % (Auto) Eos % (Auto) Baso % (Auto) Neut # (Auto) Lymph # (Auto) [place] # (Auto) Eos # (Auto) Baso # (Auto) Immature Gran % Nucleated RBC % Immature Gran # Nucleated RBCs # Sodium Potassium Chloride Carbon Dioxide Anion Gap BUN Creatinine GFR Calculation BUN/Creatinine Ratio Glucose POC Glucose 115 H Calculated Osmolality Calcium - Imaging and Cardiology Procedure: Chest x-ray: image reviewed by me, report reviewed by me (Serial CXR) DS: Provider Date of admission: 11/13/16 09:57 Primary care physician: . No PCP Attending physician on admission: Antoni Whittaker MD Consults: 11/13/16 13:25 Consult to Physician [CONS] Routine Comment: established patient Consulting Provider: Juvenal Nicholson Person Notified: Sal Date Notified: 11/13/16 Time Notified: 14:29 Consult Notification Comment: Notified Dr. Nicholson's office of consult. 11/13/16 13:56 Consult to Pharmacy [CONS] Routine Reason for Pharmacy Consult: Adjust Meds Renal Funct 11/13/16 15:03 Consult to Dietitian [CONS] Routine Reason for Dietitian: Other Consult Comment: admission screen Consult to Pastoral Services [CONS] Routine Comment: Pastoral Screen: Request Rn Bariatric Visit 11/15/16 08:38 Consult to Physician [CONS] Routine Comment: afib RVR exacerbation Consulting Provider: Larry Leon Consulting Provider Notified: Yes Consult to Specialist Group: Cardiology When should Consulting Provider be notified: Aliyah Person Notified: PATRICIA Date Notified: 11/15/16 Time Notified: 08:50 11/16/16 16:01 Consult to Occupational Therapy [CONS] Routine Reason for Occupational Therapy: Evaluate and Treat Consult to Physical Therapy [CONS] Routine Reason for Physical Therapy: Evaluate and Treat 11/19/16 07:10 Consult to Case Mgmt/Social Srvs [CONS] Routine Reason for Case Mgmt/Social Srvs: Home Health Consult Comment: MAYTE drain management Discharging clinician: Chel Jacobs PA-C
[2016-11-19 16:06] VITALS: BP 106/55
[2016-11-19] MEDS ORDERED: APIXABAN 5 MG TABLET PO SCH (21:00)
== END 2016-11-19 18:41 | disposition home health service (06) | DRG 326 ==
LOC: N.OR 05:52 → N.SDSINP 05:53 → N.ICU 09:57 → N.TELEN 11-16 16:00
PROVIDERS: ADMIT Surgery; ATTEND Surgery

== ENCOUNTER 2016-11-22 11:25 | Inpatient (IN) ==
[2016-11-22] MEDS ORDERED: SODIUM CHLORIDE 0.9% 1,000 ML IV STA ×3 (11:46→13:56)
[2016-11-22 11:54] LABS: Basophils # 0.1 10*3/uL (0.0-0.2); Basophils % 0.2 % (0.0-0.8); Eosinophils # 0.1 10*3/uL (0.0-0.87); Eosinophils % 0.4 % (0.00-10.9); Hematocrit 36.8 VOL% (42.0-52.0); Immature Granulocytes % 2.9 %; Immature Granulocytes Absolute 0.95 #; Lymphocytes # 1.3 10*3/uL (1.4-4.0); Lymphocytes % 3.9 % (21.2-54.2); Mean Corpuscular HGB Conc 31.5 GM/DL (32-36); Mean Corpuscular Hemoglobin 30 PG (27-34); Mean Corpuscular Volume 96.3 FL (87-102); Mean Platelet Volume 10.5 FL (9.6-12.0); Monocytes # 1.8 10*3/uL (0.11-0.8); Monocytes % 5.7 % (1.7-12.7); Neutrophils # 28.3 10*3/uL (1.4-7.4); Neutrophils % 86.9 % (38.7-73.9); Red Cell Distribution Width 14.3 % (9.3-17.3)
[2016-11-22 11:57] LABS: Hemoglobin 11.6 GM/DL (14.0-18.0); Platelet Count 341 T/CUMM (130-400); Red Blood Count 3.82 MC/CUMM (3.8-5.5); White Blood Count 32.5 T/CUMM (4-12)
[2016-11-22] MEDS ORDERED: PIPERACILLIN/TAZOBACTAM 4,500 MG in SODIUM CHLORIDE 0.9% 100 ML IV STA (12:01)
[2016-11-22 12:12] LABS: Albumin 2.4 G/DL (3.4-5.0); Bilirubin,Total 0.8 MG/DL (0.2-1.0); Calcium 8.4 MG/DL (8.5-10.1); Osmolality,Calculated 275.8 MOS/KG (273-304); Potassium 4.1 MMOL/L (3.5-5.1); Total Protein 5.9 G/DL (6.4-8.3)
[2016-11-22] MEDS ORDERED: PIPERACILLIN/TAZOBACTAM 4,500 MG VIAL IV ONE (12:20)
[2016-11-22 12:27] LABS: Lactic Acid 1.9 MMOL/L (0.4-2.0)
--- NOTE | 2016-11-22 12:29 | XRay Report ---
History: Shortness of breath and fever Date: 11/22/2016 Study: Chest x-ray AP portable Comparison exam: November 17, 2016 portable chest There is continued cardiomegaly. The mediastinal contours are unchanged. The pulmonary vasculature is slightly prominent. There is some patchy and hazy lung disease inferiorly, right more than left, slightly increased. There is mild right-sided pleural effusion, slightly more prominent. A pleural drainage catheter overlies the lower right hemithorax. Osseous structures are unchanged. There is no pneumothorax. Impression: Cardiomegaly and evidence of CHF, with or without superimposed pneumonia in the right lung base. The parenchymal disease in the lung bases is at least mildly increased compared to previous study. PROCEDURE INTERPRETED AT [facility] DEPARTMENT OF RADIOLOGY Final Report Signed by: Dr. Silvana Arguelles
[2016-11-22 12:31] LABS: Band Neutrophils 2 % (0-10); Hypochromasia 1+; Lymphocytes 3 % (20-55); Platelet Estimate Adequate; Polychromasia Slight; Segmented Neutrophils 89 % (50-85); Total Cells Counted 100
--- NOTE | 2016-11-22 12:56 | CT Report ---
CT chest abdomen pelvis wo con Indication: Abdominal pain Comparison: [address] chest abdomen Technique: Axial CT imaging of the chest, abdomen and pelvis is performed without contrast. Findings: CT chest: Heart, mediastinum are within normal limits. The great vessels show no evidence of abnormality Small right pleural effusion and chronic right lower lung airspace density is present similar findings were present on previous exam. There is a pleural drain present with adjacent increased density after leaving the pleural space tracking more inferiorly. Old rib fractures are present on the right without significant change in appearance CT abdomen: There is a large peritoneal hematoma that measures 8.1 x 8.0 cm in size with minimal adjacent stranding. This displaces the adjacent colon but does not appear to involve the bowel. The liver, spleen, pancreas, adrenal glands and kidneys are normal in size and enhancement. No evidence of focal lesion is demonstrated in the solid organs. The bowel caliber is normal and no wall thickening or adjacent inflammatory change is seen. No evidence of free fluid or free air is present. CT pelvis: The bowel and bladder appear within normal limits. The pelvic organs show no evidence of abnormality. Impression: Pleural drain present with fluid tracking along the drain site into the adjacent chest wall. Border detail is limited without contrast. Intravenous peritoneal hematoma near catheter insertion site 8.1 x 8.0 cm in size. Early infection cannot be excluded. [facility]PART[facility] Final Report Signed by: Dr. Kurt Treviño
[2016-11-22] MEDS ORDERED: DEXTROSE 50% 25 GM/50 ML VIAL IV PRN (14:03)
[2016-11-22] MEDS ORDERED: GLUCAGON 1 MG VIAL IM PRN (14:03)
--- NOTE | 2016-11-22 14:46 | General Surg History&Physical ---
Assessment and Plan (1) COPD with exacerbation Status: Acute Assessment and plan: Suspecting underlying pneumonia will cover HCAP t this time. Repeat chest x- ray in the morning. The patient appears to be likely septic and has undergone fluid resuscitation in the emergency department. Start IV steroids, vancomycin and Zosyn, supplemental oxygen scheduled duo nebs, and consult consult copper tapper. Monitor for volume overload. Current Visit: No (2) Acute kidney injury superimposed on chronic kidney disease Status: Acute Assessment and plan: CKD 3 at baseline. Creatinine is bumped compared to previous testing. Patient received fluid resuscitation. Monitor urine output. Renally dose medications. Current Visit: Yes (3) Status post hernia repair Status: Acute Assessment and plan: Continue with abdominal binder. Continue MAYTE drain with routine care. Current Visit: Yes (4) CAD (coronary artery disease) Status: Acute Assessment and plan: We will check serial cardiac enzymes and EKG. Monitor on telemetry. Consult cardiology as warranted. Current Visit: No (5) Diabetes Status: Chronic Assessment and plan: Continue glimepiride from home. Sliding scale. Diabetic diet. Current Visit: No Qualifiers: Diabetes mellitus type: type 2 Diabetes mellitus complication status: without complication (6) Obstructive sleep apnea Status: Chronic Assessment and plan: Continue CPAP at home settings Current Visit: No (7) Hypertension Status: Chronic Assessment and plan: Hold antihypertensives at this time Current Visit: No History of Present Illness Chief complaint: Abd pain weakness History of present illness: Mr. Salas is a 66 year old male with past medical history of paroxysmal atrial fibrillation, diabetes mellitus, hypertension, COPD oxygen and steroid- dependent, and NIDIA her returning to the emergency department after discharge POD #9 s/p complex procedue including open repairs of ventral and diaphragmatic hernias. The patient's initial postop course was actually rather uneventful except he developed postoperative A. fib which he converted back to sinus rhythm chemically. Otherwise he was stable from a pulmonary standpoint and discharged in good condition. His and he reports he was actually doing well at home, reports compliance with his incentive spirometry and medications and was tolerating activity actually rather well until he suddenly became ill today. He developed weakness, shortness of breath, abdominal pain, and began to look unwell. Found with a signs of sepsis and evidence of pneumonia on CT scan without intra-abdominal evidence of infection in the emergency department and will be admitted to the ICU. Home Medications Medication Instructions Recorded Confirmed Type Albuterol Sulfate [Proair HFA] 2 puff INH BID 06/18/16 11/22/16 History Doxazosin [Cardura] 4 mg PO BEDTIME 06/18/16 11/22/16 History Fluoxetine HCl 40 mg PO QAM 06/18/16 11/22/16 History Amiodarone Tab [Cordarone Tab] 100 mg PO QAM 07/10/16 11/22/16 History Glimepiride [Amaryl] 1 mg PO QAM 11/06/16 11/22/16 History Arformoterol Neb [Brovana] 15 mcg RESP TX RT BID 11/13/16 11/22/16 History Ergocalciferol (Vitamin D2) 50,000 unit PO Q3D 11/13/16 11/22/16 History [Vitamin D2] Apixaban [Eliquis] 5 mg PO BID #60 tablet 11/19/16 11/22/16 Rx HYDROcodone/ACETAMIN 5-325 [[place] 1 tablet PO Q6H PRN #20 tablet 11/19/16 Rx 5-325] Lisinopril [Prinivil] 5 mg PO DAILY #30 tablet 11/19/16 11/22/16 Rx Furosemide Tab [Lasix Tab] 40 mg PO QAM 11/22/16 11/22/16 History Potassium Chloride Cap/Tab [K Dur] 20 meq PO QAM 11/22/16 11/22/16 History Allergies Allergy/AdvReac Type Severity Reaction Status Date / Time adhesive tape Allergy RASH Verified 07/16/16 11:15 Amoxicillin [From Augmentin] Allergy Abdominal Verified 11/22/16 12:57 Pain clavulanic acid Allergy Abdominal Verified 11/22/16 12:56 [From Augmentin] Pain Sulfa (Sulfonamide Allergy ANAPHYLAXIS Verified 07/10/16 01:33 Antibiotics) LATEX Allergy RASH Uncoded 11/06/16 10:35 Medical,Surgical,& Family Hx - Medical History Cardio: History of: Cardiac Dysrhythmia (Afib), CHF, Hypertension Comment Only: Cardiovascular Problems (DR ARCHULETA) Psychological: History of: Anxiety Disorders, Depression Neurology: No history of: Seizures HEENT: History of: Eye Problem (Cataracts removed), Dental Problems (PARTIAL TOP ), Glaucoma Endocrine: History of: Diabetes Mellitus (NIDDM), Dyslipidemia Rheumatology: History of;: Gout Respiratory: History of: Asthma, COPD, Obstructive Sleep Apnea (CPAP; HOME O2 @ 2L/MIN PER NC NEEDED), Pneumonia, Respiratory Problems (LARGE CHEST WALL HERNIA) Genitourinary: History of: Kidney Stones, Prostate Problems Musculoskeletal: History of: Back/Neck Problems, Herniated Disk Other: No history of: Anesthesia Reactions - Surgical History Cardiac Surgeries: Sugical HX of: Cardiac Catheterization HEENT Surgeries: Surgical HX of: Eye Surgery (CATARACTS), Tonsilectomy & Adenoidectomy Abdominal Surgeries: Surgical HX of: Appendectomy, Colonoscopy, EGD, Hernia Repair (11/13/16) - Family History Family History: Reports;: Family Cancer (DAD) - Social History Smoking Status: Never smoker Frequency of Alcohol Use: None Type of Drug Use: None Exam - Constitutional Vitals: Period Temp Pulse Resp BP Sys/Padgett Pulse Ox Last 24 Hr 98.5 F-98.5 F 86-90 24-24 74-79/44-49 86-92 General appearance: mild distress, morbidly obese - Head Head exam: Present: normocephalic, atraumatic - Eye Eye exam: Absent: conjunctival injection, periorbital swelling, scleral icterus Pupils: Present: NASH - ENT Mouth exam: Present: dry mucosa - Neck Neck exam: Present: trachea midline - Respiratory Respiratory exam: Present: other (shallow breathing with tachypnea noted; diffuse coarse breath sounds wtih mild expiratory wheeze) - Cardiovascular Cardiovascular exam: Present: tachycardia - GI/Abdominal GI/Abdominal exam: Present: normal bowel sounds, tenderness (appropriate p/o tenderness; ecchymosis noted; no palpable fluctuance or hyperemia; AMYTE drain with lmild dry drainage on dressing and serosanguinous fluid in bulb), soft, other (obese) - Extremities Exam Extremities exam: Present: normal capillary refill. Absent: calf tenderness, edema - Neurological Exam Neurological exam: Present: alert, oriented X3 - Skin Skin exam: Present: normal color, warm. Absent: cyanosis, mottled, pallor - Constitutional Constitutional: Present: chills, fever(s), other (diaphoresis) - EENT Nose, mouth and throat: Absent: tongue swelling - Cardiovascular Cardiovascular: Present: dyspnea, lightheadedness. Absent: chest pain at rest, chest pain with activity, orthopnea, palpitations - Respiratory Respiratory: Present: cough (unchanged from baseline), dyspnea. Absent: hemoptysis, wheezing - Gastrointestinal Gastrointestinal: Present: abdominal pain. Absent: constipation, diarrhea, dysphagia, heartburn, hematemesis, hematochezia, melena, odynophagia - Genitourinary Genitourinary: Absent: dysuria, hematuria - Musculoskeletal Musculoskeletal: Absent: abnormal gait, arthralgias Hematologic/Lymphatic: Absent: easy bleeding, easy bruising Results - Labs CBC & BMP: 11/22/16 11:39 11/22/16 11:39 - Diagnostic Findings Procedure: Chest x-ray: image reviewed by me, report reviewed by me, CT Abdomen and Pelvis: image reviewed by me, report reviewed by me
--- NOTE | 2016-11-22 15:03 | Emergency Department Note ---
Kalee Rivers Hilary, am scribing for, and in the presence of, Moy Weeks MD 11:51. Micky Rivers Phillip K, MD, personally performed the services described in this documentation, ascribed by Cindy Granda in my presence, and it is both accurate and complete [id number] . Arrival - Arrival Chief Complaint: Fever Stated Complaint: fever ED Nursing Triage Note: C/o fever-onset last night. Reports temp up 102. Had hernia surgery by Dr. Whittaker on 11/13/16. Mode of Arrival: Wheelchair Limitations: No Limitations Source: Patient, RN Notes Reviewed - History of Present Illness HPI Narrative: Pt is a 66 y/o male presenting to the ED with c/o fever and abdominal pain which onset last night. Pt confirms fever, chills, SOB, cough with clear discharge but denies nausea or vomiting. Pt had hernia surgery on 11/13/[address] Whittaker and is extremely tender near the incision site. No other complaints or problems stated in the ED. Onset (ago): hour(s) Allergies/Adverse Reactions: Allergies Allergy/AdvReac Type Severity Reaction Status Date / Time adhesive tape Allergy RASH Verified 07/16/16 11:15 Amoxicillin [From Augmentin] Allergy Abdominal Verified 11/22/16 12:57 Pain clavulanic acid Allergy Abdominal Verified 11/22/16 12:56 [From Augmentin] Pain Sulfa (Sulfonamide Allergy ANAPHYLAXIS Verified 07/10/16 01:33 Antibiotics) LATEX Allergy RASH Uncoded 11/06/16 10:35 Home Medications: Home Medications Medication Instructions Recorded Confirmed Type Albuterol Sulfate [Proair HFA] 2 puff INH BID 06/18/16 11/22/16 History Doxazosin [Cardura] 4 mg PO BEDTIME 06/18/16 11/22/16 History Fluoxetine HCl 40 mg PO QAM 06/18/16 11/22/16 History Amiodarone Tab [Cordarone Tab] 100 mg PO QAM 07/10/16 11/22/16 History Glimepiride [Amaryl] 1 mg PO QAM 11/06/16 11/22/16 History Arformoterol Neb [Brovana] 15 mcg RESP TX RT BID 11/13/16 11/22/16 History Ergocalciferol (Vitamin D2) 50,000 unit PO Q3D 11/13/16 11/22/16 History [Vitamin D2] Apixaban [Eliquis] 5 mg PO BID #60 tablet 11/19/16 11/22/16 Rx HYDROcodone/ACETAMIN 5-325 [[place] 1 tablet PO Q6H PRN #20 tablet 11/19/16 Rx 5-325] Lisinopril [Prinivil] 5 mg PO DAILY #30 tablet 11/19/16 11/22/16 Rx Furosemide Tab [Lasix Tab] 40 mg PO QAM 11/22/16 11/22/16 History Potassium Chloride Cap/Tab [K Dur] 20 meq PO QAM 11/22/16 11/22/16 History Review of System - Review of System 12 point system: reviewed and no additional remarkable complaints except as stated - Review of System Constitutional: Present: chills, fever Respiratory: Present: cough, respiratory distress Cardiovascular: Absent: chest pain Gastrointestinal: Present: abdominal pain (tenderness over incision site). Absent: nausea, vomiting Medical,Surgical,& Family Hx - Medical History Cardio: History of: Cardiac Dysrhythmia (Afib), CHF, Hypertension Comment Only: Cardiovascular Problems (DR ARCHULETA) Psychological: History of: Anxiety Disorders, Depression Neurology: No history of: Seizures HEENT: History of: Eye Problem (Cataracts removed), Dental Problems (PARTIAL TOP ), Glaucoma Endocrine: History of: Diabetes Mellitus (NIDDM), Dyslipidemia Rheumatology: History of;: Gout Respiratory: History of: Asthma, COPD, Obstructive Sleep Apnea (CPAP; HOME O2 @ 2L/MIN PER NC NEEDED), Pneumonia, Respiratory Problems (LARGE CHEST WALL HERNIA) Genitourinary: History of: Kidney Stones, Prostate Problems Musculoskeletal: History of: Back/Neck Problems, Herniated Disk Other: No history of: Anesthesia Reactions - Surgical History Cardiac Surgeries: Sugical HX of: Cardiac Catheterization HEENT Surgeries: Surgical HX of: Eye Surgery (CATARACTS), Tonsilectomy & Adenoidectomy Abdominal Surgeries: Surgical HX of: Appendectomy, Colonoscopy, EGD, Hernia Repair (11/13/16) - Family History Family History: Reports;: Family Cancer (DAD) - Social History Smoking Status: Never smoker Frequency of Alcohol Use: None Type of Drug Use: None Exam Vital Signs: Vital Signs Temperature 98.5 F 11/22/16 11:29 Pulse Rate 90 11/22/16 11:35 Respiratory Rate 24 11/22/16 11:35 Blood Pressure 74/44 11/22/16 11:35 O2 Sat by Pulse Oximetry 92 L 11/22/16 11:35 - General General appearance: alert, in no apparent distress - Head Head exam: Present: atraumatic, normocephalic - Eye Eye exam: Present: normal appearance, PERRL, EOMI - ENT ENT exam: Present: mucous membranes dry, TM's normal bilaterally. Absent: mucous membranes moist - Neck Neck exam: Present: full ROM, trachea midline. Absent: tenderness - Chest Chest inspection: Present: symmetric chest wall rise. Absent: tenderness - Respiratory Respiratory exam: Present: rales (right side) - Cardiovascular Cardiovascular exam: Present: regular rate, normal rhythm, normal heart sounds. Absent: murmur, rubs, gallop - Abdominal Exam Abdominal exam: Present: soft, tenderness (extreme tenderness to palpation on the right side near incision ) - Extremities Exam Extremities exam: Present: full ROM. Absent: tenderness, pedal edema - Back Exam Back exam: Present: full ROM. Absent: tenderness - Neurological Exam Neurological exam: Present: alert, oriented X3, CN II-XII intact. Absent: motor sensory deficit - Psychiatric Psychiatric exam: Present: normal affect, normal mood - Skin Skin exam: Present: warm, dry, intact, normal color. Absent: rash Results - Labs CBC & BMP: 11/22/16 11:39 11/22/16 11:39 Lab Results: I have reviewed the patients labs Labs: Laboratory Tests 11/22/16 11:39 WBC 32.5 H D RBC 3.82 D Hgb 11.6 L D Hct 36.8 L MCHC 31.5 L Neut % (Auto) 86.9 H Lymph % (Auto) 3.9 L Neut # (Auto) 28.3 H Lymph # (Auto) 1.3 L [place] # (Auto) 1.8 H Laboratory Tests 11/22/16 11:39 Sodium 137 Potassium 4.1 Chloride 100 Carbon Dioxide 28 BUN 22 H Creatinine 2.00 H Calcium 8.4 L Lactate Dehydrogenase 273 H Total Protein 5.9 L Albumin 2.4 L Albumin/Globulin Ratio 0.6 L - Diagnostic Findings Procedure: Chest x-ray: report reviewed by me (Cardiomegaly and evidence of CHF , with or without superimposed pneumonia in the right lung base. The parenchymal disease inthe lung bases is at least mildly increased compared to previous study.), CT Abdomen and Pelvis: report reviewed by me (Pleural drain present with fluid tracking along the drain site into the adjacent chest wall. Border detail is limited without contrast. Intravenous peritoneal hematoma near catheter insertion site 8.1 x 8.0 cm in size. Early infection cannot be excluded.), CT - chest: report reviewed by me Disposition Clinical Impression: Abdominal wall hematoma, Right lower lobe pneumonia, possible sepsis Case discussed with: patient, patient's family Disposition: Still a Patient Condition: Critical Additional Instructions: Admit to ICU to Dr. Whittaker
[2016-11-22] MEDS ORDERED: ALBUTEROL 2.5 MG/3 ML NEB RESP TX STA (15:10)
[2016-11-22] MEDS ORDERED: PHENYLEPHRINE DRIP 40 MG/250 ML PREMIX IV ONE ×2 (15:26→16:36)
[2016-11-22] MEDS: PHENYLEPHRINE DRIP 40 MG/250 ML PREMIX IV SCH ×3 (15:30→20:32)
--- NOTE | 2016-11-22 15:39 | XRay Report ---
Portable chest Date: 11/22/2016 Clinical history: Shortness of breath Comparison: 11/22/2016 Technique: Portable AP sitting chest Findings: Stable cardiomegaly and right chest tube. Persistent diffuse parenchymal findings in both mid to lower lung zones with small pleural effusions. No definite pneumothorax. Stable mediastinum and osseous structures. Impression: No significant change in the appearance of the chest when compared to the previous exam. PROCEDURE INTERPRETED AT [facility] DEPARTMENT OF RADIOLOGY Final Report Signed by: Dr. Zofia Torrez
[2016-11-22] MEDS: ALBUTEROL 2.5 MG/3 ML NEB RESP TX SCH ×3 (15:42→23:22)
--- NOTE | 2016-11-22 15:57 | Pulmonology Consult Note ---
Assessment and Plan (1) Right lower lobe pneumonia Status: Acute Assessment and plan: Patient comes in with fever and elevated white count and looks like he has right lower lobe pneumonia. He will be covered with antibiotics for a hospital- acquired pneumonia Current Visit: Yes (2) Sepsis Status: Acute Assessment and plan: He has been hypotensive and receiving several liters of fluids. He is starting to have better urine output Current Visit: Yes (3) Diaphragmatic hernia Status: Resolved Assessment and plan: He is status post repair of the diaphragmatic hernia. Current Visit: No (4) Abdominal wall hernia Status: Acute Assessment and plan: He still has a drain in his abdominal wall Current Visit: No (5) COPD (chronic obstructive pulmonary disease) Status: Chronic Assessment and plan: He does have COPD and obstructive sleep apnea and will continue with respiratory therapy Current Visit: No (6) Status post hernia repair Status: Acute Assessment and plan: He has had recent surgery but his wound is apparently stable Current Visit: Yes History of Present Illness Chief complaint: Hypotension History of present illness: Mr. Salas is a 66 year old white male has a history of COPD last week he came in and have a right diaphragmatic and ventral hernia repair. He has had an injury to his chest wall before [place] with rib fractures and developed the hernias. He was very uncomfortable and decided to have the hernia repair. He actually did fairly well and went home with the drain. His breathing actually did fairly well. He says last night he started having some fever and chills and hurting in his right side and this got worse today. He came in with fairly sudden shock. He is very hypotensive and has required considerable fluid resuscitation to get some urine output. He has white count of 30,000 and has been having fever. He is a little short of breath but no more than usual. He is mainly complaining of the soreness of his right lower chest. He is going be admitted to the ICU for close monitoring. Home Medications Medication Instructions Recorded Confirmed Type Albuterol Sulfate [Proair HFA] 2 puff INH BID 06/18/16 11/22/16 History Doxazosin [Cardura] 4 mg PO BEDTIME 06/18/16 11/22/16 History Fluoxetine HCl 40 mg PO QAM 06/18/16 11/22/16 History Amiodarone Tab [Cordarone Tab] 100 mg PO QAM 07/10/16 11/22/16 History Glimepiride [Amaryl] 1 mg PO QAM 11/06/16 11/22/16 History Arformoterol Neb [Brovana] 15 mcg RESP TX RT BID 11/13/16 11/22/16 History Ergocalciferol (Vitamin D2) 50,000 unit PO Q3D 11/13/16 11/22/16 History [Vitamin D2] Apixaban [Eliquis] 5 mg PO BID #60 tablet 11/19/16 11/22/16 Rx HYDROcodone/ACETAMIN 5-325 [[place] 1 tablet PO Q6H PRN #20 tablet 11/19/16 Rx 5-325] Lisinopril [Prinivil] 5 mg PO DAILY #30 tablet 11/19/16 11/22/16 Rx Furosemide Tab [Lasix Tab] 40 mg PO QAM 11/22/16 11/22/16 History Potassium Chloride Cap/Tab [K Dur] 20 meq PO QAM 11/22/16 11/22/16 History Allergies Allergy/AdvReac Type Severity Reaction Status Date / Time adhesive tape Allergy RASH Verified 07/16/16 11:15 Amoxicillin [From Augmentin] Allergy Abdominal Verified 11/22/16 12:57 Pain clavulanic acid Allergy Abdominal Verified 11/22/16 12:56 [From Augmentin] Pain Sulfa (Sulfonamide Allergy ANAPHYLAXIS Verified 07/10/16 01:33 Antibiotics) LATEX Allergy RASH Uncoded 11/06/16 10:35 - Constitutional Constitutional: Present: fever(s). Absent: chills - EENT Eyes: Absent: loss of vision Ears: Absent: decreased hearing Nose, mouth and throat: Absent: headache(s), sinus pressure - Cardiovascular Cardiovascular: Present: chest pain at rest, dyspnea - Respiratory Respiratory: Present: cough, dyspnea, pain on inspiration - Gastrointestinal Gastrointestinal: Present: abdominal pain. Absent: dysphagia, nausea, vomiting - Genitourinary Genitourinary: Absent: difficulty urinating, dysuria, urinary frequency - Musculoskeletal Musculoskeletal: Present: arthralgias - Neurological Neurological: Absent: abnormal speech, focal weakness Exam (Pulmonay) H&P - Constitutional Vitals: Period Temp Pulse Resp BP Sys/Padgett Pulse Ox Last 24 Hr 98.5 F-98.5 F 86-90 24-24 74-79/44-49 86-92 General appearance: mild distress, over weight, other (He does look uncomfortable and anxious at present) - Head Head exam: Present: normal inspection, normocephalic - Eye Eye exam: Present: EOMI. Absent: scleral icterus Pupils: Present: NASH - ENT ENT exam: Present: normal exam - Neck Neck exam: Present: normal inspection. Absent: lymphadenopathy, thyromegaly - Respiratory Respiratory exam: Present: decreased breath sounds (He has decreased breath sounds in the right base), rhonchi - Cardiovascular Cardiovascular exam: Present: irregular rhythm. Absent: gallop, systolic murmur - GI/Abdominal GI/Abdominal exam: Present: distended (The right upper quadrant is distended and has a drain in place.), tenderness, soft - Extremities Exam Extremities exam: Absent: calf tenderness, edema - Neurological Exam Neurological exam: Present: alert, oriented X3 - Psychiatric Psychiatric exam: Present: anxious - Skin Skin exam: Present: warm, dry Medical,Surgical,& Family Hx - Medical History Cardio: History of: Cardiac Dysrhythmia (Afib), CHF, Hypertension Comment Only: Cardiovascular Problems (DR ARCHULETA) Psychological: History of: Anxiety Disorders, Depression Neurology: No history of: Seizures HEENT: History of: Eye Problem (Cataracts removed), Dental Problems (PARTIAL TOP ), Glaucoma Endocrine: History of: Diabetes Mellitus (NIDDM), Dyslipidemia Rheumatology: History of;: Gout Respiratory: History of: Asthma, COPD, Obstructive Sleep Apnea (CPAP; HOME O2 @ 2L/MIN PER NC NEEDED), Pneumonia, Respiratory Problems (LARGE CHEST WALL HERNIA) Genitourinary: History of: Kidney Stones, Prostate Problems Musculoskeletal: History of: Back/Neck Problems, Herniated Disk Other: No history of: Anesthesia Reactions - Surgical History Cardiac Surgeries: Sugical HX of: Cardiac Catheterization HEENT Surgeries: Surgical HX of: Eye Surgery (CATARACTS), Tonsilectomy & Adenoidectomy Abdominal Surgeries: Surgical HX of: Appendectomy, Colonoscopy, EGD, Hernia Repair (11/13/16) - Family History Family History: Reports;: Family Cancer (DAD) - Social History Smoking Status: Never smoker Frequency of Alcohol Use: None Type of Drug Use: None Results - Labs CBC & BMP: 11/22/16 11:39 11/22/16 11:39 - Diagnostic Findings Procedure: Chest x-ray: image reviewed by me, report reviewed by me (He does have some infiltrate in the right base.)
[2016-11-22] MEDS ORDERED: PIPERACILLIN/TAZOBACTAM 3,375 MG in SODIUM CHLORIDE 0.9% 100 ML IV SCH (16:11)
[2016-11-22] MEDS ORDERED: ONDANSETRON 4 MG/2 ML VIAL IV PRN (16:11)
[2016-11-22] MEDS ORDERED: BISACODYL 5 MG TABLET PO PRN (16:11)
[2016-11-22] MEDS ORDERED: DOCUSATE SODIUM 100 MG CAPSULE PO PRN (16:11)
[2016-11-22] MEDS ORDERED: ACETAMINOPHEN 325 MG TABLET PO PRN (16:11)
[2016-11-22] MEDS ORDERED: NOREPINEPHRINE 8 MG in SODIUM CHLORIDE 0.9% 242 ML IV SCH (16:11)
[2016-11-22] MEDS ORDERED: ALBUMIN 5% 12.5 GM in PREMIX 2 EACH IV ONE (16:15)
[2016-11-22] MEDS ORDERED: ALBUMIN 5% 12.5 GM/250 ML VIAL IV ONE (16:16)
--- NOTE | 2016-11-22 16:28 | EKG Report ---
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
[2016-11-22 16:42] LABS: ABG Base Excess 1.7 MMOL/L (-2.5-2.5); ABG Oxygen Saturation 94.5 % (95-100); ABG PCO2 35.1 MM HG (35-48); ABG PH 7.471 (7.35-7.45); ABG PO2 72.8 MM HG (80-95); ABG TCO2 26.1 MMOL/L (23-27); Allen Test Positive
--- NOTE | 2016-11-22 16:44 | XRay Report ---
History: Postop central line placement. Pneumonia Date: 11/22/2016 at 4:18 PM Study: Chest x-ray single view portable Comparison exam: 11/22/2016 at 3:15 PM The right IJ central line is well positioned with its tip over the superior vena cava. There is no evidence of a pneumothorax. The chest is otherwise unchanged from the earlier exam. Impression: Satisfactory positioning of the right IJ central line. No pneumothorax PROCEDURE INTERPRETED AT [facility] DEPARTMENT OF RADIOLOGY Final Report Signed by: Dr. Silvana Arguelles
[2016-11-22] MEDS: SODIUM CHLORIDE 0.9% 1,000 ML IV SCH (16:45)
[2016-11-22 16:46] LABS: Apearance,Urine CLEAR (Clear); Bacteria,Urine Occasional /HPF (Few); Bilirubin,Urine Negative (Negative); Blood, Urine Small mg/dL (Negative); Glucose,Urine (UA) Negative (Negative); Ketones,Urine Negative (Negative); Mucus,Urine Occasional /LPF (Occasional); Nitrite,Urine Negative (Negative); Protein,Urine Negative; RBC,Urine 2 /HPF (0-4); Urine Color Yellow (Yellow); Urine Urobilinogen < 2.0 EU/DL (0.2-1.0); WBC,Urine 1 /HPF (0-6)
[2016-11-22] MEDS: MORPHINE 2 MG/1 ML SYRINGE IV PRN (16:50)
[2016-11-22] MEDS: methylPREDNISolone SOD SUC 125 MG/2 ML VIAL IV SCH (16:50)
[2016-11-22] MEDS: INSULIN LISPRO 100 UNIT/ML SUBCUT SCH ×2 (16:51→21:28)
--- NOTE | 2016-11-22 17:18 | Ultrasound Report ---
Exam: Bilateral lower extremity venous Doppler ultrasound Comparison: 07/12/2016 Clinical history: Shortness of breath Technique: Duplex scan of the lower extremity veins using B-mode/grayscale scaled imaging and Doppler spectral analysis and color flow. Findings: Major venous structures of the lower extremities demonstrate a normal course and caliber. Normal color-flow study and spectral analysis. There is normal compression and augmentation of bilateral common femoral, superficial femoral and popliteal veins. The proximal bilateral greater saphenous veins appear to be patent. Impression: No evidence to suggest deep venous thrombosis within either lower extremity. Ultrasound images were captured and stored. PROCEDURE INTERPRETED AT [facility] DEPARTMENT OF RADIOLOGY Final Report Signed by: Dr. Zofia Torrez
[2016-11-22] MEDS ORDERED: SODIUM CHLORIDE 0.9% 1,000 ML IV ONE ×2 (17:20→19:30)
[2016-11-22] MEDS: CLINDAMYCIN INJ 900 MG in PREMIX 1 EACH IV SCH (18:22)
[2016-11-22] MEDS: VANCOMYCIN INJ 1,500 MG in SODIUM CHLORIDE 0.9% 500 ML IV SCH (18:25)
[2016-11-22] MEDS: ARFORMOTEROL 15 MCG/2 ML NEB RESP TX SCH (19:05)
[2016-11-22 19:36] LABS: Troponin I Only 0.028 NG/ML (0.00-0.045)
[2016-11-22] MEDS ORDERED: ALBUMIN 5% 12.5 GM in PREMIX 1 EACH IV ONE (21:22)
[2016-11-22] MEDS: APIXABAN 5 MG TABLET PO SCH (21:35)
[2016-11-23] MEDS: PHENYLEPHRINE DRIP 40 MG/250 ML PREMIX IV SCH (00:05)
[2016-11-23 01:11] LABS: Troponin I Only < 0.015 NG/ML (0.00-0.045)
[2016-11-23] MEDS: CLINDAMYCIN INJ 900 MG in PREMIX 1 EACH IV SCH ×3 (01:48→17:39)
[2016-11-23] MEDS: ALBUTEROL 2.5 MG/3 ML NEB RESP TX SCH ×6 (02:46→23:48)
[2016-11-23] MEDS ORDERED: ALBUMIN 5% 12.5 GM in PREMIX 1 EACH IV ONE (03:19)
[2016-11-23] MEDS: methylPREDNISolone SOD SUC 125 MG/2 ML VIAL IV SCH ×2 (03:30→16:49)
[2016-11-23] MEDS: SODIUM CHLORIDE 0.9% 1,000 ML IV SCH (03:40)
[2016-11-23 05:01] LABS: Basophils # 0.1 10*3/uL (0.0-0.2); Basophils % 0.1 % (0.0-0.8); Hematocrit 29.7 VOL% (42.0-52.0); Hemoglobin 9.2 GM/DL (14.0-18.0); Immature Granulocytes % 4.1 %; Lymphocytes # 0.6 10*3/uL (1.4-4.0); Lymphocytes % 1.4 % (21.2-54.2); Mean Corpuscular Hemoglobin 31 PG (27-34); Mean Corpuscular Volume 100.3 FL (87-102); Mean Platelet Volume 10.5 FL (9.6-12.0); Monocytes # 1.4 10*3/uL (0.11-0.8); Monocytes % 3.3 % (1.7-12.7); Neutrophils # 37.7 10*3/uL (1.4-7.4); Neutrophils % 91.1 % (38.7-73.9); Platelet Count 284 T/CUMM (130-400); Red Blood Count 2.96 MC/CUMM (3.8-5.5); Red Cell Distribution Width 14.6 % (9.3-17.3)
[2016-11-23 05:03] LABS: White Blood Count 41.4 T/CUMM (4-12)
[2016-11-23 05:22] LABS: Calcium 7.3 MG/DL (8.5-10.1); Osmolality,Calculated 285.3 MOS/KG (273-304); Phosphorous 4.5 MG/DL (2.5-4.9); Potassium 4.7 MMOL/L (3.5-5.1)
[2016-11-23 05:26] LABS: Troponin I Only < 0.015 NG/ML (0.00-0.045)
[2016-11-23 05:38] LABS: Lymphocytes 4 % (20-55); Platelet Estimate Normal; Segmented Neutrophils 95 % (50-85); Total Cells Counted 100
[2016-11-23] MEDS: INSULIN LISPRO 100 UNIT/ML SUBCUT SCH ×4 (07:47→20:04)
--- NOTE | 2016-11-23 07:57 | XRay Report ---
XR chest 1V portable Indication: Pneumonia Comparison: 24 August 2016 Findings: The heart and mediastinum are stable in size and configuration. The lines and tubes are unchanged in position. The pulmonary vascularity is normal in caliber. Right lower lung density is similar to previous exam. lung infiltrates, effusions, pneumothorax or other abnormality is demonstrated. Impression: No significant change PROCEDURE INTERPRETED AT [facility] DEPARTMENT OF RADIOLOGY Final Report Signed by: Dr. Kurt Treviño
[2016-11-23] MEDS: GLIMEPIRIDE 2 MG TABLET PO SCH (08:09)
[2016-11-23] MEDS: FLUoxetine 20 MG CAPSULE PO SCH (08:10)
[2016-11-23] MEDS: AMIODARONE 200 MG TABLET PO SCH (08:10)
[2016-11-23] MEDS: APIXABAN 5 MG TABLET PO SCH ×2 (08:10→20:03)
[2016-11-23] MEDS: PANTOPRAZOLE 40 MG TABLET PO SCH (08:10)
[2016-11-23] MEDS: MORPHINE 2 MG/1 ML SYRINGE IV PRN ×3 (08:13→19:44)
[2016-11-23] MEDS: ARFORMOTEROL 15 MCG/2 ML NEB RESP TX SCH ×2 (08:19→19:05)
--- NOTE | 2016-11-23 08:33 | Pulmonology Progress Note ---
Pulmonary - PN: Subj Interval history: Patient is a 66-year-old white man with COPD who has recently had a repair of a diaphragmatic hernia and an abdominal ventral hernia. Postop he did relatively well and was home several days. He came back yesterday with fever and elevated white count and pleurisy. He was felt to be septic with pneumonia. He says he feels much better today. His shortness of breath is better but he still very sore. His blood pressure is better although his urine output is still on the low side. He does seem to be tolerating the extra volume okay. He says he is not as short of breath and not coughing too badly. He still has a white count of 40,000. He is getting vancomycin and Cleocin. Will also add gram-negative coverage for now. His chest x-ray is fairly stable today. Exam (Progress Note) - Constitutional Vitals: Period Temp Pulse Resp BP Sys/Padgett Pulse Ox Last 24 Hr 97.7 F-100.5 F 65-86 20-32 72-161/44-109 91-99 Exam: General appearance: mild distress, over weight, other (He looks more comfortable today and is alert and talking clearly. He is breathing comfortably ) - Head Head exam: Present: normal inspection, normocephalic - Eye Eye exam: Present: EOMI. Absent: scleral icterus Pupils: Present: NASH - ENT ENT exam: Present: normal exam - Neck Neck exam: Present: normal inspection. Absent: lymphadenopathy, thyromegaly - Respiratory Respiratory exam: Present: decreased breath sounds (He has decreased breath sounds in the right base), rhonchi - Cardiovascular Cardiovascular exam: Present: irregular rhythm. Absent: gallop, systolic murmur - GI/Abdominal GI/Abdominal exam: Present: distended (The right upper quadrant is distended and has a drain in place.), tenderness, soft - Extremities Exam Extremities exam: Absent: calf tenderness, edema - Neurological Exam Neurological exam: Present: alert, oriented X3, he is sitting up and moving a little better today. - Psychiatric Psychiatric exam: Present: anxious - Skin Skin exam: Present: warm, dry Results - Labs CBC & BMP: 11/23/16 04:10 11/23/16 04:10 Labs: His PO2 of 72 yesterday on 2 L. His PCO2 was 35 with a pH of 7.47 - Diagnostic Findings Procedure: Chest x-ray: image reviewed by me, report reviewed by me (Chest x- ray shows some consolidation in the right base.) Assessment and Plan (1) Right lower lobe pneumonia Status: Acute Assessment and plan: Patient comes in with fever and elevated white count and looks like he has right lower lobe pneumonia. He will be covered with antibiotics for a hospital- acquired pneumonia. Overall he looks a little better clinically Current Visit: Yes (2) Sepsis Status: Acute Assessment and plan: He has been hypotensive and receiving several liters of fluids. He is starting to have better urine output. His blood pressure and heart rate are stable. Current Visit: Yes (3) Abdominal wall hernia Status: Acute Assessment and plan: He still has a drain in his abdominal wall Current Visit: No (4) COPD (chronic obstructive pulmonary disease) Status: Chronic Assessment and plan: He does have COPD and obstructive sleep apnea and will continue with respiratory therapy. He looks like he is breathing better today. Current Visit: No (5) Status post hernia repair Status: Acute Assessment and plan: He has had recent surgery but his wound is apparently stable Current Visit: Yes
--- NOTE | 2016-11-23 10:44 | Event Note ---
General Surgery Progress Note Chief complaint This patient is a 66-year-old man readmitted with pneumonia following a right chest wall and abdominal wall hernia repair with mesh on 11/13/2016 Interval history The patient is resting comfortably this morning. His pain is improved. His white blood cell count went up to 41,000 but his creatinine is improving and he is urinating well. He is off of pressor medication. Physical exam Afebrile, normal vital signs Chest is clear Heart is regular with no murmurs Abdomen is soft and nontender with normal bowel sounds The right upper abdominal chest wall incision is clean with minimal reactive erythema no appreciable fluid underneath it. The MAYTE drain is serosanguineous. Labs Reviewed, as above Imaging Chest x-ray today is unchanged Assessment and plan Continue incentive spirometry and breathing treatments Continue steroids for COPD We will start getting the patient up and mobilizing today. Continue Nelson catheter for now. We will likely DC this later today. We will need to watch out for volume overload as he mobilizes all the fluid he got during his resuscitation. Continue antibiotics for pneumonia Repeat labs tomorrow and chest x-ray
[2016-11-23] MEDS: AZTREONAM 1,000 MG in SODIUM CHLORIDE 0.9% 100 ML IV SCH ×2 (12:06→16:51)
[2016-11-23] MEDS ORDERED: SODIUM CHLORIDE 0.9% 1,000 ML IV SCH (15:30)
[2016-11-23] MEDS: VANCOMYCIN INJ 1,500 MG in SODIUM CHLORIDE 0.9% 500 ML IV SCH (17:04)
[2016-11-24] MEDS: CLINDAMYCIN INJ 900 MG in PREMIX 1 EACH IV SCH ×3 (00:31→18:02)
[2016-11-24] MEDS: AZTREONAM 1,000 MG in SODIUM CHLORIDE 0.9% 100 ML IV SCH ×3 (01:29→18:47)
[2016-11-24] MEDS: methylPREDNISolone SOD SUC 125 MG/2 ML VIAL IV SCH ×2 (02:13→17:38)
[2016-11-24] MEDS: ALBUTEROL 2.5 MG/3 ML NEB RESP TX SCH ×6 (03:32→23:51)
[2016-11-24] MEDS: MORPHINE 2 MG/1 ML SYRINGE IV PRN (04:24)
[2016-11-24 05:11] LABS: Basophils # 0.1 10*3/uL (0.0-0.2); Basophils % 0.1 % (0.0-0.8); Hematocrit 27.3 VOL% (42.0-52.0); Hemoglobin 8.7 GM/DL (14.0-18.0); Immature Granulocytes % 3.6 %; Immature Granulocytes Absolute 1.35 #; Lymphocytes # 0.2 10*3/uL (1.4-4.0); Lymphocytes % 0.5 % (21.2-54.2); Mean Corpuscular HGB Conc 31.9 GM/DL (32-36); Mean Corpuscular Hemoglobin 30 PG (27-34); Mean Corpuscular Volume 95.5 FL (87-102); Mean Platelet Volume 10.8 FL (9.6-12.0); Monocytes % 2.6 % (1.7-12.7); Neutrophils # 34.6 10*3/uL (1.4-7.4); Neutrophils % 93.2 % (38.7-73.9); Platelet Count 279 T/CUMM (130-400); Red Blood Count 2.86 MC/CUMM (3.8-5.5); Red Cell Distribution Width 14.6 % (9.3-17.3); White Blood Count 37.1 T/CUMM (4-12)
[2016-11-24 05:51] LABS: Calcium 7.9 MG/DL (8.5-10.1); Magnesium 2.2 MG/DL (1.8-2.4); Osmolality,Calculated 287.3 MOS/KG (273-304); Potassium 3.8 MMOL/L (3.5-5.1)
[2016-11-24 06:20] LABS: Band Neutrophils 1 % (0-10); Hypochromasia 1+; Lymphocytes 2 % (20-55); Segmented Neutrophils 95 % (50-85); Total Cells Counted 100
[2016-11-24 06:21] LABS: Microcytosis Slight; Platelet Estimate Normal
[2016-11-24] MEDS: ARFORMOTEROL 15 MCG/2 ML NEB RESP TX SCH ×2 (07:37→20:02)
[2016-11-24] MEDS: INSULIN LISPRO 100 UNIT/ML SUBCUT SCH ×4 (07:53→20:58)
[2016-11-24] MEDS: GLIMEPIRIDE 2 MG TABLET PO SCH (08:57)
[2016-11-24] MEDS: AMIODARONE 200 MG TABLET PO SCH (08:57)
[2016-11-24] MEDS: FLUoxetine 20 MG CAPSULE PO SCH (08:58)
[2016-11-24] MEDS: APIXABAN 5 MG TABLET PO SCH ×2 (08:58→20:45)
[2016-11-24] MEDS: PANTOPRAZOLE 40 MG TABLET PO SCH (08:58)
--- NOTE | 2016-11-24 09:07 | Event Note ---
General Surgery Progress Note Chief complaint This patient is a 66-year-old man readmitted with pneumonia following a right chest wall and abdominal wall hernia repair with mesh on 11/13/2016 Interval history The patient did well overnight. He has no new complaints today but is still having significant pain below his incision on his right chest wall. He is tolerating some of his diet but not eating a great amount. He is passing gas. He got up in the chair some yesterday. His white blood cell count is down to 37 ,000. His creatinine is normal today. Physical exam Afebrile, normal vital signs Chest is clear Heart is regular with no murmurs Abdomen is soft and nontender with normal bowel sounds The right upper abdominal chest wall incision has some increased erythema today. The drainage from the MAYTE drain is still serosanguineous. Several chacorta were taken out of the incision and there was no purulent drainage in the wound. There was some clear fluid that came out around the drain. The wound was packed with a wet-to-dry dressing. Labs Reviewed, as above Imaging Chest x-ray today is unchanged Assessment and plan Continue incentive spirometry and breathing treatments Continue steroids for COPD Transfer to the floor Increase activity Initiate wound care on the right chest wall wound with twice daily dressing changes using Dakin's. I will likely place a wound VAC on Saturday or Saturday of next week Continue to monitor MAYTE drain output
--- NOTE | 2016-11-24 10:06 | XRay Report ---
History: Dyspnea Date: 11/24/2016 Study: Chest x-ray AP portable Comparison exam: 11/23/2016 The right IJ central line and right basilar pleural drainage catheter are stable in position. There is no pneumothorax. There is continued cardiomegaly. The mediastinal contours are stable. The pulmonary vasculature is upper normal. There is continued mild right pleural effusion, unchanged. There is continued right basilar atelectasis/infiltrate, grossly similar. The osseous structures are unchanged. Impression: Cardiomegaly and borderline CHF appearance. Stable right basilar parenchymal and pleural disease. No pneumothorax PROCEDURE INTERPRETED AT [facility] DEPARTMENT OF RADIOLOGY Final Report Signed by: Dr. Silvana Arguelles
--- NOTE | 2016-11-24 11:10 | Pulmonology Progress Note ---
Pulmonary - PN: Subj Interval history: 66y/o M with COPD admitted for septic shock after recent surgical repair of diaphragmatic hernia & abdominal ventral hernia. Sepsis is presumed to be from pneumonia & blood cultures are growing GPC in clusters. Overnight pt did very well with improved hemodynamics & patient also reports significant improvement. His WBC is down-trending as well as Cr and he hasn't had any worsening in respiratory status. No new issues; pt is being transferred to the floor today. Exam (Progress Note) - Constitutional Vitals: Period Temp Pulse Resp BP Sys/Padgett Pulse Ox Last 24 Hr 97.4 F-98.8 F 70-85 16-27 111-139/52-73 86-100 General appearance: normal weight, no acute distress - Head Head exam: Present: normal inspection - Eye Eye exam: Present: EOMI Pupils: Present: NASH - ENT ENT exam: Present: normal exam - Neck Neck exam: Present: normal inspection - Respiratory Respiratory exam: Present: clear to auscultation bilaterally, decreased breath sounds (Slightly decreased right lung base), rhonchi. Absent: accessory muscle use, wheezes - Cardiovascular Cardiovascular exam: Present: irregular rhythm - GI/Abdominal GI/Abdominal exam: Present: normal bowel sounds, guarding (voluntary), tenderness (incisional tenderness), soft - Extremities Exam Extremities exam: Present: normal inspection - Neurological Exam Neurological exam: Present: alert, oriented X3, CN II-XII intact. Absent: motor sensory deficit - Skin Skin exam: Present: warm, dry Results - Labs CBC & BMP: 11/24/16 04:51 11/24/16 04:51 - Diagnostic Findings Procedure: Chest x-ray: report reviewed by me (overall unchanged from yesterday) Assessment and Plan (1) Right lower lobe pneumonia Status: Acute Assessment and plan: Stable today with slowly improving effusion s/p diaphragm repair. Drain output serosanginous. Continue current antibiotics until blood culture results ( speciation/sensitivities) return. Current Visit: Yes Qualifiers: Pneumonia type: due to unspecified organism Qualified Code(s): J18.1 - Lobar pneumonia, unspecified organism (2) Acute kidney injury superimposed on chronic kidney disease Status: Acute Assessment and plan: Improved Cr today with good UOP. Trend. Current Visit: Yes (3) Sepsis Status: Acute Assessment and plan: Improved. Blood cultures growing GPC. Awaiting speciation/sensitivities & tailor antibitoics as able. Current Visit: Yes Qualifiers: Sepsis type: sepsis due to unspecified organism Qualified Code(s): A41.9 - Sepsis, unspecified organism (4) Status post hernia repair Status: Acute Current Visit: Yes (5) COPD (chronic obstructive pulmonary disease) Status: Chronic Assessment and plan: Breathing stable, CCM. Current Visit: No Qualifiers: COPD type: unspecified COPD Qualified Code(s): J44.9 - Chronic obstructive pulmonary disease, unspecified
[2016-11-24] MEDS: VANCOMYCIN INJ 1,500 MG in SODIUM CHLORIDE 0.9% 500 ML IV SCH (20:33)
[2016-11-25] MEDS: AZTREONAM 1,000 MG in SODIUM CHLORIDE 0.9% 100 ML IV SCH ×3 (00:37→18:29)
[2016-11-25] MEDS: CLINDAMYCIN INJ 900 MG in PREMIX 1 EACH IV SCH ×3 (01:14→16:51)
[2016-11-25] MEDS: methylPREDNISolone SOD SUC 125 MG/2 ML VIAL IV SCH ×2 (02:11→14:43)
[2016-11-25] MEDS: ALBUTEROL 2.5 MG/3 ML NEB RESP TX SCH ×5 (03:40→19:01)
[2016-11-25 04:35] LABS: Basophils % 0.1 % (0.0-0.8); Hematocrit 28.9 VOL% (42.0-52.0); Immature Granulocytes % 1.3 %; Immature Granulocytes Absolute 0.39 #; Lymphocytes # 0.3 10*3/uL (1.4-4.0); Mean Corpuscular HGB Conc 31.1 GM/DL (32-36); Mean Corpuscular Hemoglobin 30 PG (27-34); Mean Platelet Volume 11.1 FL (9.6-12.0); Monocytes # 0.7 10*3/uL (0.11-0.8); Monocytes % 2.2 % (1.7-12.7); Neutrophils # 27.8 10*3/uL (1.4-7.4); Neutrophils % 95.4 % (38.7-73.9); Platelet Count 281 T/CUMM (130-400); Red Blood Count 2.98 MC/CUMM (3.8-5.5); Red Cell Distribution Width 14.6 % (9.3-17.3); White Blood Count 29.1 T/CUMM (4-12)
[2016-11-25 05:20] LABS: Calcium 7.9 MG/DL (8.5-10.1); Magnesium 2.3 MG/DL (1.8-2.4)
[2016-11-25 05:26] LABS: Lymphocytes 2 % (20-55); Segmented Neutrophils 97 % (50-85); Total Cells Counted 100
[2016-11-25 05:27] LABS: Microcytosis Slight
[2016-11-25 05:28] LABS: Hypochromasia Slight; Platelet Estimate Normal
[2016-11-25 05:29] LABS: Anisocytosis Slight
[2016-11-25] MEDS: ARFORMOTEROL 15 MCG/2 ML NEB RESP TX SCH ×2 (07:29→19:01)
[2016-11-25] MEDS: GLIMEPIRIDE 2 MG TABLET PO SCH (09:00)
[2016-11-25] MEDS: INSULIN LISPRO 100 UNIT/ML SUBCUT SCH ×4 (09:00→21:40)
[2016-11-25] MEDS: APIXABAN 5 MG TABLET PO SCH ×2 (09:01→23:05)
[2016-11-25] MEDS: FUROSEMIDE 40 MG TABLET PO SCH (09:01)
[2016-11-25] MEDS: AMIODARONE 200 MG TABLET PO SCH (09:01)
[2016-11-25] MEDS: FLUoxetine 20 MG CAPSULE PO SCH (09:02)
[2016-11-25] MEDS: PANTOPRAZOLE 40 MG TABLET PO SCH (09:02)
--- NOTE | 2016-11-25 13:28 | Event Note ---
General Surgery Progress Note Chief complaint This patient is a 66-year-old man readmitted with pneumonia following a right chest wall and abdominal wall hernia repair with mesh on 11/13/2016 Interval history No events overnight. The patient was moved to a floor bed yesterday. His pain is improving over his incision. No fevers. White blood cell count is down to 29,000. Creatinine is normal. Physical exam Afebrile, normal vital signs Chest is clear Heart is regular with no murmurs Abdomen is soft and nontender with normal bowel sounds The right upper abdominal chest wall incision was unpacked and it appears to be decreasing with erythema and swelling. There is not a significant amount of fluid and there is only clear fluid on the dressing. It was repacked with a Dakin's wet-to-dry dressing. Labs Reviewed, as above Imaging None new Assessment and plan Continue incentive spirometry and breathing treatments Continue steroids for COPD Increase activity, ambulate in the hallway Continue MAYTE drain as it still has a suction on it. Continue dressing changes twice daily with Dakin's. Repeat labs tomorrow Continue DVT prophylaxis with SCDs and the patient is already on therapeutic anticoagulation for his atrial fibrillation he developed during his prior hospital stay so no additional DVT chemoprophylaxis as needed for this.
[2016-11-25] MEDS: SODIUM HYPOCHLORITE 0.25% IRRIG 473 ML BOTTLE TOP SCH ×2 (14:15→23:04)
[2016-11-25] MEDS: VANCOMYCIN INJ 1,500 MG in SODIUM CHLORIDE 0.9% 500 ML IV SCH (18:28)
[2016-11-25] MEDS ORDERED: FUROSEMIDE 40 MG/4 ML VIAL IV ONE (21:40)
[2016-11-25] MEDS ORDERED: FUROSEMIDE 40 MG/4 ML VIAL ONE (21:41)
[2016-11-25 21:51] LABS: ABG Base Excess -2.1 MMOL/L (-2.5-2.5); ABG HCO3 22.2 MMOL/L (20-26); ABG Oxygen Saturation 92.4 % (95-100); ABG PCO2 36.4 MM HG (35-48); ABG PH 7.404 (7.35-7.45); ABG PO2 66.5 MM HG (80-95); ABG TCO2 23.4 MMOL/L (23-27); Allen Test Positive
--- NOTE | 2016-11-25 22:18 | XRay Report ---
History: Shortness of breath Date: 11/25/2016 Study: Chest x-ray AP portable Comparison exam: 11/24/2016 The right IJ central line is well positioned. The pleural drainage tube over the lower right hemithorax is stable in position. There is cardiomegaly. There is pulmonary vascular engorgement. There is increasing hazy edema in the lower lung zones. There is continued mild to moderate right pleural effusion, grossly similar. There is no pneumothorax. Osseous structures are unchanged. Impression: Worsening congestive heart failure and pulmonary edema compared to the previous study PROCEDURE INTERPRETED AT [facility] DEPARTMENT OF RADIOLOGY Final Report Signed by: Dr. Silvana Arguelles
[2016-11-25 22:25] LABS: Calcium 7.9 MG/DL (8.5-10.1); Osmolality,Calculated 289.1 MOS/KG (273-304); Potassium 3.8 MMOL/L (3.5-5.1)
--- NOTE | 2016-11-25 22:34 | Event Note ---
This 66-year-old white male was admitted with sepsis a few days ago. He had had ventral hernia repair with diaphragmatic hernia repair a week or so back. He was dehydrated hypotensive and septic on admission. He received a total of about 8-1/2 L of fluid the first couple days. He was moved upstairs from the unit and earlier this evening I was called to see him because of hypoxemia. His oxygen saturation had dropped into the 50s on nasal oxygen. He has a partial nonrebreathing mask on at present. Saturation got up to 100% and his PO2 was 66 on the blood gases. PCO2 and pH were normal. Chest x-ray looks a little better than what he had. He does have a small right pleural effusion. He was given Lasix. When he stood up to urinate his oxygen saturation dropped because his oxygen mask was taken off. He does have COPD. He is on Solu- Medrol and bronchodilators. He has paroxysmal atrial fibrillation and is on Eliquis. Physical reveals a man who is anxious and short of breath but not in distress. Respiratory rate is around 28. Pupils react to light throat clear blood pressure stable. Neck supple. Chest reveals some rales at the right base and expiratory wheezes bilaterally. Heart normal rate irregular rhythm no murmurs. Abdomen soft he has a binder over his abdomen bowel sounds decreased but present. Extremities trace of edema calves nontender. I think he is ahead on fluids. We will get his Nelson replaced so that he will have to get up to urinate. Will repeat Lasix in a couple of hours. Put him on his nasal CPAP which he normally wears at night. If his oxygen saturation is acceptable on that we will use that overnight. If not we will go back to the nonrebreather mask. We will move him back to the ICU.
--- NOTE | 2016-11-25 22:56 | Event Note ---
I was called to see the patient for hypoxia and worsening respiratory distress. He was evaluated by Dr. Kiser prior to me arriving and arrangements have been made to move him to the ICU and place a Nelson catheter. He did receive a dose of Lasix and his saturations are improving but is still on 100% nonrebreather. He will be moved to the ICU and a Nelson catheter will be placed and I will defer the supplemental respiratory support to Dr. Kiser overnight and will discuss this with Dr. Nicholson in the morning.
[2016-11-26] MEDS: AZTREONAM 1,000 MG in SODIUM CHLORIDE 0.9% 100 ML IV SCH ×3 (00:32→17:00)
[2016-11-26] MEDS: CLINDAMYCIN INJ 900 MG in PREMIX 1 EACH IV SCH ×3 (00:32→17:01)
[2016-11-26] MEDS: ALBUTEROL 2.5 MG/3 ML NEB RESP TX SCH ×6 (00:37→19:40)
[2016-11-26] MEDS: methylPREDNISolone SOD SUC 125 MG/2 ML VIAL IV SCH ×2 (03:26→13:58)
[2016-11-26 04:39] LABS: Allen Test Positive; Pt O2 Delivery Device BIPAP
[2016-11-26 04:40] LABS: ABG Base Excess 2.2 MMOL/L (-2.5-2.5); ABG HCO3 26.1 MMOL/L (20-26); ABG Oxygen Saturation 85.5 % (95-100); ABG PCO2 37.5 MM HG (35-48); ABG PO2 50.4 MM HG (80-95); ABG TCO2 27.2 MMOL/L (23-27)
[2016-11-26 05:15] LABS: Basophils % 0.1 % (0.0-0.8); Hematocrit 29.8 VOL% (42.0-52.0); Hemoglobin 9.5 GM/DL (14.0-18.0); Immature Granulocytes % 2.8 %; Immature Granulocytes Absolute 0.95 #; Lymphocytes # 0.3 10*3/uL (1.4-4.0); Lymphocytes % 0.9 % (21.2-54.2); Mean Corpuscular HGB Conc 31.9 GM/DL (32-36); Mean Corpuscular Hemoglobin 30 PG (27-34); Mean Corpuscular Volume 94.6 FL (87-102); Mean Platelet Volume 11.1 FL (9.6-12.0); Monocytes # 1.6 10*3/uL (0.11-0.8); Monocytes % 4.7 % (1.7-12.7); NRBC # 0.02 10*3/uL; Neutrophils % 91.5 % (38.7-73.9); Platelet Count 326 T/CUMM (130-400); Red Blood Count 3.15 MC/CUMM (3.8-5.5); Red Cell Distribution Width 14.8 % (9.3-17.3); White Blood Count 33.8 T/CUMM (4-12)
[2016-11-26 05:43] LABS: Hypochromasia 1+; Lymphocytes 1 % (20-55); Microcytosis Slight; Platelet Estimate Adequate; Segmented Neutrophils 97 % (50-85); Total Cells Counted 100
[2016-11-26 05:47] LABS: Calcium 8.3 MG/DL (8.5-10.1); Osmolality,Calculated 291.8 MOS/KG (273-304); Potassium 3.4 MMOL/L (3.5-5.1)
[2016-11-26] MEDS: ARFORMOTEROL 15 MCG/2 ML NEB RESP TX SCH ×2 (06:00→19:40)
--- NOTE | 2016-11-26 06:13 | EKG Report ---
Stationary ECG Study [facility] Test Date: 11/25/2016 9:44:50 PM Pat Name: МАРИЯ SORTO Department: Room: 115 Gender: M Sample Paster: GRADY Trujillo : 1950 Requested by: Antoni Whittaker Order Number: [id number] Reading MD: BERNARDA MARTÍNEZ Intervals [place] Rate: 80 P: -24 RI: 156 QRS: 3 QRSD: 132 T: 8 QT: 404 QTc: 441 Interpretive Statements SINUS RHYTHMRIGHT BUNDLE BRANCH BLOCK Electronically Signed On 11-29-16 09:57:10 CDT by BERNARDA MARTÍNEZ [email or web address]
[2016-11-26] MEDS: MORPHINE 2 MG/1 ML SYRINGE IV PRN ×2 (06:29→13:58)
[2016-11-26] MEDS ORDERED: LORazepam 2 MG/1 ML VIAL IV ONE (06:38)
--- NOTE | 2016-11-26 07:23 | XRay Report ---
XR chest 1V portable Indication: Respiratory distress Comparison: Chest x-ray 11/25/2016 Technique: Portable AP chest was performed. Findings: Right-sided chest tube is stable. Right IJ central line is stable. Diffusely distributed airspace opacities superimposed on coarse reticular interstitial markings remain present bilaterally with a basilar gradient. Little overall change in the chest is suggested given the difference in technique. Impression: 1. Diffuse parenchymal abnormality has changed little since comparison given the difference in technique. 11/26/2016 7:20 AM PROCEDURE INTERPRETED AT [facility] DEPARTMENT OF RADIOLOGY Final Report Signed by: Dr. Jake Clemens
--- NOTE | 2016-11-26 07:54 | Pulmonology Progress Note ---
Pulmonary - PN: Subj Interval history: Patient is a 66-year-old white man with COPD who has recently had a repair of a diaphragmatic hernia and an abdominal ventral hernia. Postop he did relatively well and was home several days. He came back yesterday with fever and elevated white count and pleurisy. He was felt to be septic with pneumonia. Over the weekend he was doing better on Saturday and moved to a regular room. However last night he got more short of breath and had to be moved back to the ICU. He was having much more trouble with his breathing and had to be put on BiPAP. His chest x-ray suggested some volume overload and he was diuresed a little. He has not been able to cough up much secretions. He is still very short of breath now. He has grown MRSA out of his blood. He is getting vancomycin. He feels like he is a little better even though he still hypoxemic. His chest x- ray still shows diffuse infiltrates. Exam (Progress Note) - Constitutional Vitals: Period Temp Pulse Resp BP Sys/Padgett Pulse Ox Last 24 Hr 97.8 F-98.5 F 74-83 17-30 142-165/74-96 85-100 Exam: General appearance: mod. distress, over weight, other (He looks short of breath but is still able to talk okay.) - Head Head exam: Present: normal inspection, normocephalic - Eye Eye exam: Present: EOMI. Absent: scleral icterus Pupils: Present: NASH - ENT ENT exam: Present: normal exam - Neck Neck exam: Present: normal inspection. Absent: lymphadenopathy, thyromegaly - Respiratory Respiratory exam: Present: He has fair air movement with bilateral crackles. He is not wheezing very much. - Cardiovascular Cardiovascular exam: Present: irregular rhythm. Absent: gallop, systolic murmur - GI/Abdominal GI/Abdominal exam: Present: distended (The right upper quadrant is distended and has a drain in place.), tenderness, soft - Extremities Exam Extremities exam: Absent: calf tenderness, edema - Neurological Exam Neurological exam: Present: alert, he is moving his extremities okay. - Psychiatric Psychiatric exam: Present: anxious - Skin Skin exam: Present: warm, dry Results - Labs CBC & BMP: 11/26/16 04:35 11/26/16 04:35 Labs: His PO2 is 50 with a PCO2 of 37 and pH of 7.46 - Diagnostic Findings Procedure: Chest x-ray: image reviewed by me, report reviewed by me (Chest x- ray shows bilateral infiltrates.) Assessment and Plan (1) Right lower lobe pneumonia Status: Acute Assessment and plan: Patient comes in with fever and elevated white count and looks like he has right lower lobe pneumonia. He will be covered with antibiotics for a hospital- acquired pneumonia. He is growing MRSA out of his blood stream. He is getting vancomycin. Current Visit: Yes Qualifiers: Pneumonia type: due to unspecified organism Qualified Code(s): J18.1 - Lobar pneumonia, unspecified organism (2) Sepsis Status: Acute Assessment and plan: He has been hypotensive and receiving several liters of fluids. His urine output has been adequate and his blood pressure has been stable. Now he may be a little overloaded. Current Visit: Yes Qualifiers: Sepsis type: sepsis due to unspecified organism Qualified Code(s): A41.9 - Sepsis, unspecified organism (3) Abdominal wall hernia Status: Acute Assessment and plan: He still has a drain in his abdominal wall Current Visit: No (4) COPD (chronic obstructive pulmonary disease) Status: Chronic Assessment and plan: He does have COPD and obstructive sleep apnea and will continue with respiratory therapy. He feels like he is struggling with the BiPAP and will try a nonrebreather for now. He is not having any CO2 retention. Current Visit: No Qualifiers: COPD type: unspecified COPD Qualified Code(s): J44.9 - Chronic obstructive pulmonary disease, unspecified (5) Status post hernia repair Status: Acute Assessment and plan: He has had recent surgery but his wound is apparently stable. His wound was opened up and draining some. Current Visit: Yes
[2016-11-26] MEDS ORDERED: FUROSEMIDE 40 MG/4 ML VIAL IV ONE ×2 (08:00)
[2016-11-26] MEDS: INSULIN LISPRO 100 UNIT/ML SUBCUT SCH ×4 (08:07→21:14)
[2016-11-26] MEDS: AMIODARONE 200 MG TABLET PO SCH (08:22)
[2016-11-26] MEDS: GLIMEPIRIDE 2 MG TABLET PO SCH (08:22)
[2016-11-26] MEDS: FUROSEMIDE 40 MG TABLET PO SCH (08:23)
[2016-11-26] MEDS: FLUoxetine 20 MG CAPSULE PO SCH (08:23)
[2016-11-26] MEDS: PANTOPRAZOLE 40 MG TABLET PO SCH (08:23)
[2016-11-26] MEDS: APIXABAN 5 MG TABLET PO SCH ×2 (08:23→21:14)
[2016-11-26] MEDS: SODIUM HYPOCHLORITE 0.25% IRRIG 473 ML BOTTLE TOP SCH ×2 (08:23→21:14)
[2016-11-26] MEDS ORDERED: ALBUTEROL 2.5 MG/3 ML NEB RESP TX SCH (09:00)
[2016-11-26] MEDS ORDERED: POTASSIUM CHLORIDE RIDER 100 ML IV ONE (09:18)
[2016-11-26] MEDS ORDERED: POTASSIUM CHLORIDE RIDER 10 MEQ in PREMIX 1 EACH IV PRN (09:19)
[2016-11-26] MEDS: POTASSIUM CHLORIDE RIDER 20 MEQ in PREMIX 1 EACH IV PRN (09:59)
[2016-11-26] MEDS ORDERED: ALBUTEROL 2.5 MG/3 ML NEB RESP TX PRN (11:00)
--- NOTE | 2016-11-26 11:19 | Event Note ---
General Surgery Progress Note Chief complaint This patient is a 66-year-old man readmitted with pneumonia following a right chest wall and abdominal wall hernia repair with mesh on 11/13/2016 Interval history The patient was moved back to the ICU last night for respiratory distress. He is doing diuresis currently. He is on BiPAP. Feels very anxious while on the BiPAP. His labs reveal leukocytosis still of 33,000. Creatinine is normal. He is urinating well and responding to diuretics well. Physical exam Afebrile, normal vital signs Chest is clear Heart is regular with no murmurs Abdomen is soft and nontender with normal bowel sounds The right upper abdominal chest wall incision was unpacked and it appears to be decreasing with erythema and swelling. The erythema has almost completely resolved. There is not a significant amount of fluid and there is only clear fluid on the dressing. It was repacked with a Dakin's wet-to-dry dressing. Labs Reviewed, as above Imaging Chest x-ray with diffuse infiltrates Assessment and plan Continue incentive spirometry and breathing treatments Continue steroids for COPD Increase activity, ambulate in the hallway Continue MAYTE drain as it still has a suction on it. Continue dressing changes twice daily with Dakin's. Repeat labs tomorrow Continue diuresis and pulmonary support.
[2016-11-26] MEDS: VANCOMYCIN INJ 1,500 MG in SODIUM CHLORIDE 0.9% 500 ML IV SCH ×2 (11:51→23:24)
[2016-11-26] MEDS ORDERED: PROPOFOL 1,000 MG/100 ML BOTTLE IV ONE ×2 (12:09→13:13)
[2016-11-26] MEDS: PROPOFOL 1,000 MG/100 ML BOTTLE IV SCH ×3 (12:20→19:17)
[2016-11-26] MEDS ORDERED: SUCCINYLCHOLINE 200 MG/10 ML VIAL ONE (12:38)
[2016-11-26] MEDS ORDERED: ETOMIDATE 20 MG/10 ML VIAL IV ONE (12:38)
--- NOTE | 2016-11-26 12:42 | Anesthesia Procedures ---
Anesthesia Procedures - Intubation Time out performed intubation: Yes Sedative: Etomidate Mg given sedative: 20 Paralytic: Succinylcholine Mg given paralytic: 120 Laryngoscope: Duran (2) ET Tube Size: 7.5 ET Tube Uncuffed: No Tube Secured Depth (cm): 23 Tube Secured Location: teeth Tube Placement Confirmation: visualized tube passing through cords, equal breath sounds bilaterally, no breath sounds over epigastrium, confirmation by capnometry, confirmation detector color change Patient tolerated procedure intubation: well Intubation Complications: none Additional Commets: had to perform rapid sequence because patient just drank ensure
[2016-11-26 13:04] LABS: ABG Base Excess 1.5 MMOL/L (-2.5-2.5); ABG HCO3 25.7 MMOL/L (20-26); ABG Oxygen Saturation 96.9 % (95-100); ABG PCO2 45.7 MM HG (35-48); ABG PO2 92.5 MM HG (80-95); ABG TCO2 24.3 MMOL/L (23-27)
--- NOTE | 2016-11-26 13:34 | XRay Report ---
XR chest 1V portable Indication: Status post intubation. Comparison: AP chest 11/26/2016. Technique: Portable AP chest was performed. Findings: Endotracheal tube terminates at the level of the aortic knob. This may lie at the level of the jade. Retraction by 1 to 2 cm could be considered. Diffusely distributed airspace opacities in the lung bases remain present with some airspace opacification distally present within the mid chest bilaterally. Right-sided chest tube is stable. Right-sided IJ central venous catheter is stable. The cardiomediastinal silhouette demonstrates no significant interval change. Bones and soft tissues appear stable. Impression: 1. Retraction of endotracheal tube by 1 to 2 cm could be considered. 2. Little change in the lung parenchyma. Diffuse pulmonary edema and/or infection could be considered. 11/26/2016 1:30 PM PROCEDURE INTERPRETED AT [facility] DEPARTMENT OF RADIOLOGY Final Report Signed by: Dr. Jake Clemens
[2016-11-27] MEDS: ALBUTEROL 2.5 MG/3 ML NEB RESP TX SCH ×7 (00:41→23:32)
[2016-11-27] MEDS: CLINDAMYCIN INJ 900 MG in PREMIX 1 EACH IV SCH ×3 (00:51→15:59)
[2016-11-27] MEDS: AZTREONAM 1,000 MG in SODIUM CHLORIDE 0.9% 100 ML IV SCH ×3 (01:24→16:23)
[2016-11-27] MEDS: methylPREDNISolone SOD SUC 125 MG/2 ML VIAL IV SCH ×2 (03:15→13:38)
[2016-11-27] MEDS: PROPOFOL 1,000 MG/100 ML BOTTLE IV SCH ×4 (03:17→18:19)
[2016-11-27 05:28] LABS: Hematocrit 27.1 VOL% (42.0-52.0); Hemoglobin 8.7 GM/DL (14.0-18.0); Immature Granulocytes % 2.3 %; Immature Granulocytes Absolute 0.48 #; Lymphocytes # 0.2 10*3/uL (1.4-4.0); Lymphocytes % 1.1 % (21.2-54.2); Mean Corpuscular HGB Conc 32.1 GM/DL (32-36); Mean Corpuscular Hemoglobin 30 PG (27-34); Mean Corpuscular Volume 94.4 FL (87-102); Mean Platelet Volume 10.9 FL (9.6-12.0); Monocytes # 0.8 10*3/uL (0.11-0.8); Monocytes % 3.9 % (1.7-12.7); Neutrophils # 19.6 10*3/uL (1.4-7.4); Neutrophils % 92.7 % (38.7-73.9); Platelet Count 270 T/CUMM (130-400); Red Blood Count 2.87 MC/CUMM (3.8-5.5); Red Cell Distribution Width 14.7 % (9.3-17.3); White Blood Count 21.1 T/CUMM (4-12)
[2016-11-27 05:57] LABS: Calcium 7.5 MG/DL (8.5-10.1); Osmolality,Calculated 296.6 MOS/KG (273-304); Potassium 3.9 MMOL/L (3.5-5.1)
[2016-11-27 05:58] LABS: Band Neutrophils 2 % (0-10); Hypochromasia 1+; Lymphocytes 1 % (20-55); Segmented Neutrophils 93 % (50-85); Total Cells Counted 100
[2016-11-27 05:59] LABS: Microcytosis Slight; Platelet Estimate Normal
[2016-11-27] MEDS: POTASSIUM CHLORIDE RIDER 20 MEQ in PREMIX 1 EACH IV PRN (06:44)
--- NOTE | 2016-11-27 07:11 | XRay Report ---
Portable chest. Indication: Hypoxia and congestive heart failure. Comparison: November 26, 2016. The heart is enlarged. An endotracheal tube is in satisfactory position. A nasogastric tube has been placed. Its distal tip projects off the field of the film, beyond the GE junction. Right IJ catheter, distal tip in the SVC. Worsening volume loss at the right lung base. Extensive predominantly alveolar infiltrates with basilar predominance are present and there are small bilateral pleural effusions. Impression: Cardiomegaly. Bilateral infiltrates which could be due to pulmonary edema or pneumonia. Small bilateral pleural effusions. Worsening atelectasis in the right base. PROCEDURE INTERPRETED AT [facility] DEPARTMENT OF RADIOLOGY Final Report Signed by: Dr. Sherine Schaefer
[2016-11-27] MEDS: ARFORMOTEROL 15 MCG/2 ML NEB RESP TX SCH ×2 (07:33→18:58)
--- NOTE | 2016-11-27 08:51 | ECHO Report ---
Peter Salas Exam Date: 11/26/2016 12:01 Referring Physician: Technologist: Imelda Araya RDCS Age: 66 Ht (in): 68 Wt (lb): 240 Gender: M Exam Location: [facility] Echo Indications: COPD, s/p Hernia repair, Fever, Elevated white blood count, MRSA, Sepsis, Pneumonia, Shortness of breath BP: 118 / 89 HR: 118 Rhythm: Sinus Technical Quality: Fair IMPRESSIONS Normal LV systolic function, ejection fraction 55%. Grade 1/4 diastolic dysfunction. Mild concentric left ventricular hypertrophy. Mild mitral and tricuspid regurgitation. Pulmonary hypertension with pulmonary artery pressure estimated at 51 mmHg. MEASUREMENTS (Male / Female) Normal Values 2D ECHO LV Diastolic Diameter PLAX 5.8 cm 4.2 - 5.9 / 3.9 - 5.3 cm LV Systolic Diameter PLAX 3.3 cm LV Fractional Shortening PLAX 42.7 % IVS Diastolic Thickness 1.3 cm 0.6 - 1.0 / 0.6 - 0.9 cm LVPW Diastolic Thickness 1.2 cm 0.6 - 1.0 / 0.6 - 0.9 cm RV Internal Dim ED PLAX 3.4 cm Aortic Root Diameter 3.1 cm LA Systolic Diameter LX 3.9 cm 3.0 - 4.0 / 2.7 - 3.8 cm DOPPLER TR Peak Velocity 322.0 cm/s TR Peak Gradient 41.5 mmHg FINDINGS Left Ventricle Normal left ventricular cavity size. Mild left ventricular hypertrophy. Left ventricular ejection fraction is estimated at 55%. Right Ventricle The right ventricle is normal in size and function. Right Atrium The right atrium is normal in size. Left Atrium The left atrium is normal in size. Mitral Valve Morphologically normal mitral valve. Mild mitral valve regurgitation. Aortic Valve Morphologically normal aortic valve without significant sclerosis or stenosis. There is no aortic regurgitation. Tricuspid Valve Morphologically normal tricuspid valve. Mild tricuspid valve regurgitation. Tricuspid regurgitation velocities suggest a PAP of 51 mmHg. Pulmonic Valve Morphologically normal pulmonic valve without significant stenosis. There is no pulmonic regurgitation. Pericardium Normal pericardium without effusion. Aorta Normal ascending aorta dimension. Radha Cormier MD (Electronically Signed) Final Date: 27 November 2016 08:49
[2016-11-27 09:12] LABS: Allen Test Positive; Pt O2 Delivery Device Ventilator
[2016-11-27] MEDS: PANTOPRAZOLE 40 MG VIAL IV SCH (09:12)
[2016-11-27 09:13] LABS: ABG Base Excess 2.7 MMOL/L (-2.5-2.5); ABG HCO3 26.8 MMOL/L (20-26); ABG Oxygen Saturation 99.5 % (95-100); ABG PCO2 39.6 MM HG (35-48); ABG PH 7.441 (7.35-7.45); ABG TCO2 24.6 MMOL/L (23-27)
--- NOTE | 2016-11-27 09:15 | Pulmonology Progress Note ---
Pulmonary - PN: Subj Interval history: Patient is a 66-year-old white man with COPD who has recently had a repair of a diaphragmatic hernia and an abdominal ventral hernia. Postop he did relatively well and was home several days. He came back yesterday with fever and elevated white count and pleurisy. He was felt to be septic with pneumonia. Over the weekend he was doing better on Saturday and moved to a regular room. He developed more shortness of breath and had to be moved back to the ICU. His chest x-ray showed diffuse infiltrates and he did diurese fairly well. However yesterday he fatigues and had to be put on the ventilator. He is still very alert and comfortable on the ventilator. He has still been requiring a high FiO2. Otherwise he is reasonably stable. Exam (Progress Note) - Constitutional Vitals: Period Temp Pulse Resp BP Sys/Padgett Pulse Ox Last 24 Hr 97.8 F-98.2 F 53-132 15-35 82-138/47-89 76-100 Exam: General appearance: no distress, over weight, other (He is alert and comfortable on the ventilator.) - Head Head exam: Present: normal inspection, normocephalic - Eye Eye exam: Present: EOMI. Absent: scleral icterus Pupils: Present: NASH - ENT ENT exam: Present: normal exam, ET tube is in good position - Neck Neck exam: Present: normal inspection. Absent: lymphadenopathy, thyromegaly - Respiratory Respiratory exam: Present: He has good breath sounds bilaterally and really does not have much wheezing. - Cardiovascular Cardiovascular exam: Present: He has a slow regular rhythm now and his blood pressure is stable. - GI/Abdominal GI/Abdominal exam: Present: distended (The right upper quadrant is distended and has a drain in place.), tenderness, soft - Extremities Exam Extremities exam: Absent: calf tenderness, edema - Neurological Exam Neurological exam: Present: alert, he is moving his extremities okay. - Psychiatric Psychiatric exam: Present: He looks reasonably comfortable on the ventilator - Skin Skin exam: Present: warm, dry Results - Labs CBC & BMP: 11/27/16 04:25 11/27/16 04:25 - Diagnostic Findings Procedure: Chest x-ray: image reviewed by me, report reviewed by me (Chest x- ray still shows bilateral infiltrates.) Assessment and Plan (1) Right lower lobe pneumonia Status: Acute Assessment and plan: Patient comes in with fever and elevated white count and looks like he has right lower lobe pneumonia. He will be covered with antibiotics for a hospital- acquired pneumonia. He is growing MRSA out of his blood stream. He is getting vancomycin. Current Visit: Yes Qualifiers: Pneumonia type: due to unspecified organism Qualified Code(s): J18.1 - Lobar pneumonia, unspecified organism (2) Sepsis Status: Acute Assessment and plan: He has been hypotensive and receiving several liters of fluids. His urine output has been adequate and his blood pressure has been stable. Now he may be a little overloaded. He did diurese fairly well but his x-ray has not cleared yet. He is stable on the ventilator now. Current Visit: Yes Qualifiers: Sepsis type: sepsis due to unspecified organism Qualified Code(s): A41.9 - Sepsis, unspecified organism (3) Abdominal wall hernia Status: Acute Assessment and plan: He still has a drain in his abdominal wall Current Visit: No (4) COPD (chronic obstructive pulmonary disease) Status: Chronic Assessment and plan: He does have COPD and obstructive sleep apnea and will continue with respiratory therapy. He had to be intubated yesterday. Will continue with present therapy. Current Visit: No Qualifiers: COPD type: unspecified COPD Qualified Code(s): J44.9 - Chronic obstructive pulmonary disease, unspecified (5) Status post hernia repair Status: Acute Assessment and plan: He has had recent surgery but his wound is apparently stable. His wound was opened up and draining some. Current Visit: Yes (6) Acute and chronic respiratory failure Status: Acute Assessment and plan: Patient developed worsening respiratory distress and had to be intubated. He still has bilateral infiltrates and requiring a high FiO2. Will adjust his ventilator. We will plan a bronchoscope in the morning. Current Visit: Yes
--- NOTE | 2016-11-27 09:16 | Event Note ---
General Surgery Progress Note Chief complaint This patient is a 66-year-old man readmitted with pneumonia following a right chest wall and abdominal wall hernia repair with mesh on 11/13/2016 Interval history The patient is on 100% FiO2 and 5 of PEEP. His x-ray looks more like diffuse infiltrates today consistent with ARDS. He does not wake up much but is on propofol. He is hemodynamically normal and his urine output is good. He still diuresing well. His white blood cell count is downtrending. Physical exam Afebrile, normal vital signs Chest is clear Heart is regular with no murmurs Abdomen is soft and nontender with normal bowel sounds There is no erythema of the wound. There is minimal drainage on the dressing. The MAYTE drain has no output. Labs Reviewed, as above Imaging Chest x-ray with diffuse infiltrates consistent with ARDS Assessment and plan Continue antibiotics Repeat blood cultures are pending Remove MAYTE drain and remove remaining chacorta. We will place a wound VAC with a black granular foam sponge. Start tube feedings today Continue current medications and repeat labs tomorrow
[2016-11-27] MEDS: APIXABAN 5 MG TABLET PO SCH ×2 (09:22→21:04)
[2016-11-27] MEDS: FLUoxetine 20 MG CAPSULE PO SCH (09:22)
[2016-11-27] MEDS: FUROSEMIDE 40 MG TABLET PO SCH (09:22)
[2016-11-27] MEDS: AMIODARONE 200 MG TABLET PO SCH (09:23)
[2016-11-27] MEDS: GLIMEPIRIDE 2 MG TABLET PO SCH (09:23)
[2016-11-27] MEDS: MORPHINE 2 MG/1 ML SYRINGE IV PRN ×2 (10:20→17:15)
[2016-11-27] MEDS: SODIUM HYPOCHLORITE 0.25% IRRIG 473 ML BOTTLE TOP SCH ×2 (10:21→21:04)
[2016-11-27] MEDS: INSULIN LISPRO 100 UNIT/ML SUBCUT SCH ×3 (10:57→18:21)
[2016-11-27] MEDS: VANCOMYCIN INJ 1,500 MG in SODIUM CHLORIDE 0.9% 500 ML IV SCH ×2 (11:21→22:54)
[2016-11-28] MEDS: CLINDAMYCIN INJ 900 MG in PREMIX 1 EACH IV SCH ×3 (01:54→17:04)
[2016-11-28] MEDS: INSULIN LISPRO 100 UNIT/ML SUBCUT SCH ×4 (01:55→18:06)
[2016-11-28] MEDS: AZTREONAM 1,000 MG in SODIUM CHLORIDE 0.9% 100 ML IV SCH (01:55)
[2016-11-28] MEDS: methylPREDNISolone SOD SUC 125 MG/2 ML VIAL IV SCH ×2 (03:05→14:01)
[2016-11-28] MEDS: ALBUTEROL 2.5 MG/3 ML NEB RESP TX SCH ×6 (03:40→23:51)
[2016-11-28 03:47] LABS: Allen Test Positive; Pt O2 Delivery Device Ventilator
[2016-11-28 03:51] LABS: ABG HCO3 28.6 MMOL/L (20-26); ABG Oxygen Saturation 98.1 % (95-100); ABG PCO2 38.3 MM HG (35-48); ABG PH 7.491 (7.35-7.45); ABG PO2 119.2 MM HG (80-95); ABG TCO2 29.8 MMOL/L (23-27)
[2016-11-28 05:30] LABS: Basophils % 0.1 % (0.0-0.8); Hematocrit 27.9 VOL% (42.0-52.0); Hemoglobin 8.9 GM/DL (14.0-18.0); Immature Granulocytes Absolute 0.65 #; Lymphocytes # 0.3 10*3/uL (1.4-4.0); Mean Corpuscular HGB Conc 31.9 GM/DL (32-36); Mean Corpuscular Hemoglobin 30 PG (27-34); Mean Corpuscular Volume 94.9 FL (87-102); Mean Platelet Volume 11.2 FL (9.6-12.0); Monocytes % 6.2 % (1.7-12.7); NRBC # 0.02 10*3/uL; Neutrophils # 14.1 10*3/uL (1.4-7.4); Neutrophils % 87.7 % (38.7-73.9); Platelet Count 288 T/CUMM (130-400); Red Blood Count 2.94 MC/CUMM (3.8-5.5); Red Cell Distribution Width 14.6 % (9.3-17.3); White Blood Count 16.1 T/CUMM (4-12)
[2016-11-28 06:18] LABS: Band Neutrophils 3 % (0-10); Lymphocytes 3 % (20-55); Platelet Estimate Normal; Segmented Neutrophils 87 % (50-85); Total Cells Counted 100
[2016-11-28] MEDS: PROPOFOL 1,000 MG/100 ML BOTTLE IV SCH ×5 (06:26→22:43)
[2016-11-28 06:32] LABS: Magnesium 2.5 MG/DL (1.8-2.4); Phosphorous 3.5 MG/DL (2.5-4.9); Prealbumin 15.1 MG/DL (20-40)
--- NOTE | 2016-11-28 06:37 | XRay Report ---
XR chest 1V portable Indication: ARDS Comparison: Chest x-ray 11/27/2016 Technique: Portable AP chest was performed. Findings: Multiple tubes and medical support devices appear stable. Diffusely distributed airspace opacities remain present bilaterally as well suggest a change from comparison. Cardiomediastinal silhouette is partially obscured but appears stable. Bones and soft tissues are grossly stable. Impression: 1. Little change in the chest. 11/28/2016 6:33 AM PROCEDURE INTERPRETED AT [facility] DEPARTMENT OF RADIOLOGY Final Report Signed by: Dr. Jake Clemens
[2016-11-28 06:52] LABS: Calcium 7.9 MG/DL (8.5-10.1); Osmolality,Calculated 303.3 MOS/KG (273-304); Potassium 3.8 MMOL/L (3.5-5.1)
[2016-11-28] MEDS: POTASSIUM CHLORIDE RIDER 20 MEQ in PREMIX 1 EACH IV PRN (07:05)
--- NOTE | 2016-11-28 07:41 | Pulmonology Progress Note ---
Pulmonary - PN: Subj Interval history: Patient is a 66-year-old white man with COPD who has recently had a repair of a diaphragmatic hernia and an abdominal ventral hernia. Postop he did relatively well and was home several days. He came back yesterday with fever and elevated white count and pleurisy. He was felt to be septic with pneumonia. Over the weekend he was doing better on Saturday and moved to a regular room. He developed more shortness of breath and had to be moved back to the ICU. His chest x-ray showed diffuse infiltrates and he did diurese fairly well. However he continued to have respiratory distress and required intubation. He is reasonably comfortable on the ventilator at present. He still has extensive bilateral infiltrates. He does have staph growing in his blood stream. We will continue broad-spectrum antibiotics. Will proceed with a therapeutic bronchoscopy today. Exam (Progress Note) - Constitutional Vitals: Period Temp Pulse Resp BP Sys/Padgett Pulse Ox Last 24 Hr 97.5 F-98.3 F 47-76 10-22 96-144/51-76 94-100 Exam: General appearance: no distress, over weight, other (He is alert and comfortable on the ventilator.) - Head Head exam: Present: normal inspection, normocephalic - Eye Eye exam: Present: EOMI. Absent: scleral icterus Pupils: Present: NASH - ENT ENT exam: Present: normal exam, ET tube is in good position - Neck Neck exam: Present: normal inspection. Absent: lymphadenopathy, thyromegaly - Respiratory Respiratory exam: Present: He has good breath sounds bilaterally and does have bilateral rhonchi and crackles. - Cardiovascular Cardiovascular exam: Present: He has a slow regular rhythm now and his blood pressure is stable. - GI/Abdominal GI/Abdominal exam: Present: distended (The right upper quadrant is distended and has a drain in place. He does have some redness of his abdominal wall.), tenderness, soft - Extremities Exam Extremities exam: Absent: calf tenderness, edema - Neurological Exam Neurological exam: Present: alert, he is moving his extremities okay. - Psychiatric Psychiatric exam: Present: He looks reasonably comfortable on the ventilator - Skin Skin exam: Present: warm, dry Results - Labs CBC & BMP: 11/28/16 05:00 11/28/16 05:00 Labs: PO2 is 119 with a PCO2 of 38 and a pH of 7.49 - Diagnostic Findings Procedure: Chest x-ray: image reviewed by me, report reviewed by me (Chest x- ray showed bilateral infiltrates.) Assessment and Plan (1) Right lower lobe pneumonia Status: Acute Assessment and plan: Patient comes in with fever and elevated white count and looks like he has right lower lobe pneumonia. He will be covered with antibiotics for a hospital- acquired pneumonia. He is growing MRSA out of his blood stream. He is getting vancomycin. Will add gentamicin. Current Visit: Yes Qualifiers: Pneumonia type: due to unspecified organism Qualified Code(s): J18.1 - Lobar pneumonia, unspecified organism (2) Sepsis Status: Acute Assessment and plan: He has been hypotensive and receiving several liters of fluids. His urine output has been adequate and his blood pressure has been stable. Now he may be a little overloaded. He did diurese fairly well but his x-ray has not cleared yet. He has extensive pneumonia still. Will adjust his antibiotics. Current Visit: Yes Qualifiers: Sepsis type: sepsis due to unspecified organism Qualified Code(s): A41.9 - Sepsis, unspecified organism (3) Abdominal wall hernia Status: Acute Assessment and plan: He still has a drain in his abdominal wall Current Visit: No (4) COPD (chronic obstructive pulmonary disease) Status: Chronic Assessment and plan: He does have COPD and obstructive sleep apnea and will continue with respiratory therapy. He had to be intubated yesterday. Will continue with present therapy. Will proceed with a therapeutic bronchoscopy today. Current Visit: No Qualifiers: COPD type: unspecified COPD Qualified Code(s): J44.9 - Chronic obstructive pulmonary disease, unspecified (5) Status post hernia repair Status: Acute Assessment and plan: He has had recent surgery but his wound is apparently stable. His wound was opened up and draining some. Current Visit: Yes (6) Acute and chronic respiratory failure Status: Acute Assessment and plan: Patient developed worsening respiratory distress and had to be intubated. He still has bilateral infiltrates but his oxygenation is improving. We will clear his airways today. Current Visit: Yes
--- NOTE | 2016-11-28 07:42 | Event Note ---
General Surgery Progress Note Chief complaint This patient is a 66-year-old man readmitted with pneumonia following a right chest wall and abdominal wall hernia repair with mesh on 11/13/2016 Interval history This patient did fairly well overnight. He is on increased PEEP at 8 but his FiO2 is down to 60%. His ABG shows a PaO2 of 119. He is awake and alert and follows commands. His urine output is good. He had a wound VAC placed on his abdominal wound. He had a repeat blood culture that showed 1 out of 2 bottles of gram-positive cocci. His wound culture and his sputum culture both grew gram -positive cocci. Physical exam Afebrile, normal vital signs Chest is clear Heart is regular with no murmurs Abdomen is soft and nontender with normal bowel sounds There is no erythema of the wound. The MAYTE drain is out and the wound VAC is working well. Labs White blood cell count is down Hemoglobin is stable Imaging Chest x-ray with diffuse infiltrates consistent with ARDS, this looks worse to me today. Assessment and plan Continue antibiotics Repeat blood cultures are pending, but the initial shows 1 out of 2 bottles gram -positive cocci Continue wound VAC therapy for abdominal wound. We will try to salvage this mesh. Restart tube feedings after bronchoscopy Continue current medications and repeat labs tomorrow
[2016-11-28] MEDS: ARFORMOTEROL 15 MCG/2 ML NEB RESP TX SCH ×2 (08:02→20:18)
--- NOTE | 2016-11-28 08:03 | Operative Note ---
Date of procedure: 11/28/16 Pre-op diagnosis: Bilateral infiltrates and respiratory failure Post-op diagnosis: same Procedure: Patient is a 66-year-old on the ventilator with bilateral infiltrates. Bronchoscopy is done to clear his airways. He is sedated with Diprivan. Procedure: The fiberoptic bronchoscope was passed through the ET tube into the airways. The bronchopulmonary segments were identified and specimens obtained. Findings: The ET tube is in good position in the trachea. The main bronchi are open. There is very thick mucus and plugs that were washed and cleared bilaterally. There is considerable bronchitis present. The right upper lobe, right middle lobe, right lower lobe are all open. The left upper lobe, lingula and left lower lobe are all open. There are no endobronchial lesions seen. Washings were sent for culture. Once the airways were clear the procedure was stopped. He tolerated the procedure well without problems. Impression: Bronchitis with mucous plugging. Bilateral infiltrates with respiratory failure. Plan: We will continue ventilatory support. Anesthesia: conscious sedation Surgeon / Physician: Juvenal Nicholson Estimated blood loss: none Specimens: other (Washings were sent for culture) Condition: critical Disposition: ICU Results - Labs CBC & BMP: 11/28/16 05:00 11/28/16 05:00 Discharge Plan - Discharge Medications No Action Fluoxetine HCl 40 mg PO QAM Doxazosin [Cardura] 4 mg PO BEDTIME Albuterol Sulfate [Proair HFA] 2 puff INH BID Amiodarone Tab [Cordarone Tab] 100 mg PO QAM Ergocalciferol (Vitamin D2) [Vitamin D2] 50,000 unit PO Q3D HYDROcodone/ACETAMIN 5-325 [[place] 5-325] 1 tablet PO Q6H PRN #20 tablet PRN Reason: Pain Moderate To Severe (4-10) Lisinopril [Prinivil] 5 mg PO DAILY #30 tablet Apixaban [Eliquis] 5 mg PO BID #60 tablet Glimepiride [Amaryl] 1 mg PO QAM Arformoterol Neb [Brovana] 15 mcg RESP TX RT BID Potassium Chloride Cap/Tab [K Dur] 20 meq PO QAM Furosemide Tab [Lasix Tab] 40 mg PO QAM - Follow Up or Referral - Forms/Instructions
[2016-11-28] MEDS: GLIMEPIRIDE 2 MG TABLET PO SCH (08:41)
[2016-11-28] MEDS: FLUoxetine 20 MG CAPSULE PO SCH (08:41)
[2016-11-28] MEDS: FUROSEMIDE 40 MG TABLET PO SCH (08:41)
[2016-11-28] MEDS: AMIODARONE 200 MG TABLET PO SCH (08:42)
[2016-11-28] MEDS: APIXABAN 5 MG TABLET PO SCH ×2 (08:42→21:37)
[2016-11-28] MEDS: PANTOPRAZOLE 40 MG VIAL IV SCH (08:44)
[2016-11-28] MEDS: GENTAMICIN INJ 100 ML IV SCH ×2 (10:20→21:37)
[2016-11-28] MEDS: SODIUM HYPOCHLORITE 0.25% IRRIG 473 ML BOTTLE TOP SCH ×2 (10:26→21:37)
[2016-11-28] MEDS: VANCOMYCIN INJ 1,500 MG in SODIUM CHLORIDE 0.9% 500 ML IV SCH ×2 (11:28→22:00)
[2016-11-28] MEDS: MORPHINE 2 MG/1 ML SYRINGE IV PRN ×2 (17:31→21:37)
[2016-11-29] MEDS: INSULIN LISPRO 100 UNIT/ML SUBCUT SCH ×4 (00:24→21:23)
[2016-11-29] MEDS: CLINDAMYCIN INJ 900 MG in PREMIX 1 EACH IV SCH ×3 (00:25→17:10)
[2016-11-29] MEDS: methylPREDNISolone SOD SUC 125 MG/2 ML VIAL IV SCH ×2 (02:45→13:30)
[2016-11-29] MEDS: MORPHINE 2 MG/1 ML SYRINGE IV PRN (02:48)
[2016-11-29] MEDS: PROPOFOL 1,000 MG/100 ML BOTTLE IV SCH ×2 (03:00→06:40)
[2016-11-29] MEDS: ALBUTEROL 2.5 MG/3 ML NEB RESP TX SCH ×6 (03:20→23:40)
[2016-11-29 03:26] LABS: ABG Base Excess 3.3 MMOL/L (-2.5-2.5); ABG HCO3 27.3 MMOL/L (20-26); ABG Oxygen Saturation 91.8 % (95-100); ABG PCO2 41.8 MM HG (35-48); ABG PH 7.433 (7.35-7.45); ABG PO2 62.2 MM HG (80-95); ABG TCO2 25.6 MMOL/L (23-27); Allen Test Positive; Pt O2 Delivery Device Ventilator
[2016-11-29 04:15] LABS: Basophils % 0.1 % (0.0-0.8); Eosinophils % 0.1 % (0.00-10.9); Hematocrit 27.9 VOL% (42.0-52.0); Hemoglobin 8.8 GM/DL (14.0-18.0); Immature Granulocytes % 3.8 %; Immature Granulocytes Absolute 0.65 #; Lymphocytes # 0.6 10*3/uL (1.4-4.0); Lymphocytes % 3.4 % (21.2-54.2); Mean Corpuscular HGB Conc 31.5 GM/DL (32-36); Mean Corpuscular Hemoglobin 30 PG (27-34); Mean Corpuscular Volume 95.2 FL (87-102); Mean Platelet Volume 11.5 FL (9.6-12.0); Monocytes # 0.8 10*3/uL (0.11-0.8); Monocytes % 4.7 % (1.7-12.7); Neutrophils # 14.9 10*3/uL (1.4-7.4); Neutrophils % 87.9 % (38.7-73.9); Platelet Count 302 T/CUMM (130-400); Red Blood Count 2.93 MC/CUMM (3.8-5.5); Red Cell Distribution Width 14.9 % (9.3-17.3); White Blood Count 16.9 T/CUMM (4-12)
[2016-11-29 04:42] LABS: Hypochromasia 1+; Lymphocytes 5 % (20-55); Microcytosis Slight; Nucleated Red Blood Cells 1 (0-5); Ovalocytes Slight; Platelet Estimate Adequate; Segmented Neutrophils 88 % (50-85); Total Cells Counted 100
[2016-11-29 04:46] LABS: Calcium 7.5 MG/DL (8.5-10.1); Osmolality,Calculated 304.3 MOS/KG (273-304); Potassium 3.9 MMOL/L (3.5-5.1)
--- NOTE | 2016-11-29 06:19 | XRay Report ---
XR chest 1V portable Indication: Ventilator. Comparison: Chest x-ray 11/28/2016 Technique: Portable AP chest was performed. Findings: Multiple tubes and medical support devices appear stable. Improved appearance of the lung parenchyma bilaterally suggests improving pulmonary edema/congestive heart failure. Heart size is stable. Impression: 1. Improving pulmonary edema is suggested. 2. Small right-sided pleural effusion is suggested. 11/29/2016 6:14 AM PROCEDURE INTERPRETED AT [facility] DEPARTMENT OF RADIOLOGY Final Report Signed by: Dr. Jake Clemens
--- NOTE | 2016-11-29 07:02 | Pulmonology Progress Note ---
Pulmonary - PN: Subj Interval history: Patient is a 66-year-old white man with COPD who has recently had a repair of a diaphragmatic hernia and an abdominal ventral hernia. Postop he did relatively well and was home several days. He came back yesterday with fever and elevated white count and pleurisy. He was felt to be septic with pneumonia. Over the weekend he was doing better on Saturday and moved to a regular room. He developed more shortness of breath and had to be moved back to the ICU. His chest x-ray showed diffuse infiltrates and he did diurese fairly well. However he continued to have respiratory distress and required intubation. He is reasonably comfortable on the ventilator at present. He still has extensive bilateral infiltrates. He does have staph growing in his blood stream. We will continue broad-spectrum antibiotics. Yesterday he had a bronchoscopy and cleared his airways. He has had a fairly good night and he is very alert today. He wants the tube out quickly. His chest x-ray is much improved. His oxygenation is still poor but he does look a lot better. Exam (Progress Note) - Constitutional Vitals: Period Temp Pulse Resp BP Sys/Padgett Pulse Ox Last 24 Hr 97.3 F-98.3 F 47-72 14-28 85-159/49-78 96-100 Exam: General appearance: no distress, over weight, other (He is alert and comfortable on the ventilator. He looks much more comfortable today.) - Head Head exam: Present: normal inspection, normocephalic - Eye Eye exam: Present: EOMI. Absent: scleral icterus Pupils: Present: NASH - ENT ENT exam: Present: normal exam, ET tube is in good position - Neck Neck exam: Present: normal inspection. Absent: lymphadenopathy, thyromegaly - Respiratory Respiratory exam: Present: He has good breath sounds bilaterally and his lungs do sound clear with less rhonchi. - Cardiovascular Cardiovascular exam: Present: He has a slow regular rhythm now and his blood pressure is stable. - GI/Abdominal GI/Abdominal exam: Present: distended (The right upper quadrant is distended and has a drain in place. He does have some redness of his abdominal wall.), tenderness, soft - Extremities Exam Extremities exam: Absent: calf tenderness, edema - Neurological Exam Neurological exam: Present: alert, he is moving his extremities okay. - Psychiatric Psychiatric exam: Present: He looks reasonably comfortable on the ventilator - Skin Skin exam: Present: warm, dry Results - Labs CBC & BMP: 11/29/16 03:55 11/29/16 03:55 Labs: His PO2 62 with a PCO2 of 41 and a pH of 7.43 - Diagnostic Findings Procedure: Chest x-ray: image reviewed by me, report reviewed by me (Chest x- ray looks much better.) Assessment and Plan (1) Right lower lobe pneumonia Status: Acute Assessment and plan: Patient comes in with fever and elevated white count and looks like he has right lower lobe pneumonia. He will be covered with antibiotics for a hospital- acquired pneumonia. He is growing MRSA out of his blood stream. He is getting vancomycin. Will add gentamicin. Clinically he looks like he is feeling much better. Current Visit: Yes Qualifiers: Pneumonia type: due to unspecified organism Qualified Code(s): J18.1 - Lobar pneumonia, unspecified organism (2) Sepsis Status: Acute Assessment and plan: He has been hemodynamically stable and his blood pressure is much better. Current Visit: Yes Qualifiers: Sepsis type: sepsis due to unspecified organism Qualified Code(s): A41.9 - Sepsis, unspecified organism (3) Abdominal wall hernia Status: Acute Assessment and plan: He still has a drain in his abdominal wall. His abdomen is doing a little better. Current Visit: No (4) COPD (chronic obstructive pulmonary disease) Status: Chronic Assessment and plan: He does have COPD and obstructive sleep apnea and will continue with respiratory therapy. He is doing well on the ventilator and looks like he is better. We will try to extubate him soon Current Visit: No Qualifiers: COPD type: unspecified COPD Qualified Code(s): J44.9 - Chronic obstructive pulmonary disease, unspecified (5) Status post hernia repair Status: Acute Assessment and plan: He has had recent surgery but his wound is apparently stable. His wound was opened up and draining some. Current Visit: Yes (6) Acute and chronic respiratory failure Status: Acute Assessment and plan: Patient developed worsening respiratory distress and had to be intubated. He is doing much better and his chest x-ray is much clearer. We will try to extubate him soon. Current Visit: Yes
--- NOTE | 2016-11-29 07:50 | Event Note ---
General Surgery Progress Note Chief complaint This patient is a 66-year-old man readmitted with pneumonia following a right chest wall and abdominal wall hernia repair with mesh on 11/13/2016 Interval history This patient had an uneventful night overnight. He is continuing to diuresis well. He had a bronchoscopy yesterday with a lot of thick secretions that were removed and his chest x-ray looks much better today. He is weaning off the ventilator. He is urinating well. He is tolerating his tube feeds. He wakes up and follows commands. His wound VAC is working well. He had repeat blood cultures that were +1 out of 2 and he ended up growing MRSA from his wound and his lungs are rather sputum culture. Physical exam Afebrile, normal vital signs Chest is clear Heart is regular with no murmurs Abdomen is soft and nontender with normal bowel sounds There is no erythema of the wound. The MAYTE drain is out and the wound VAC is working well. Labs The white blood cell count is stable at 16,900 Hemoglobin is stable Creatinine is normal Imaging Chest x-ray looks improved today Assessment and plan Continue antibiotics Continue wound care with wound VAC. This will need to be changed tomorrow. Continue tube feeds as tolerated Repeat lab work tomorrow
[2016-11-29] MEDS: ARFORMOTEROL 15 MCG/2 ML NEB RESP TX SCH ×2 (08:22→19:39)
[2016-11-29 08:24] LABS: Allen Test Positive; Pt O2 Delivery Device Ventilator
[2016-11-29 08:25] LABS: ABG Base Excess 3.1 MMOL/L (-2.5-2.5); ABG HCO3 27.2 MMOL/L (20-26); ABG Oxygen Saturation 98.7 % (95-100); ABG PCO2 41.2 MM HG (35-48); ABG PH 7.434 (7.35-7.45); ABG TCO2 25.2 MMOL/L (23-27)
[2016-11-29] MEDS: GLIMEPIRIDE 2 MG TABLET PO SCH (08:49)
[2016-11-29] MEDS: APIXABAN 5 MG TABLET PO SCH ×2 (08:49→21:22)
[2016-11-29] MEDS: FLUoxetine 20 MG CAPSULE PO SCH (08:50)
[2016-11-29] MEDS: AMIODARONE 200 MG TABLET PO SCH (08:50)
[2016-11-29] MEDS: PANTOPRAZOLE 40 MG VIAL IV SCH (08:52)
[2016-11-29] MEDS: FUROSEMIDE 40 MG TABLET PO SCH (08:52)
[2016-11-29] MEDS: SODIUM HYPOCHLORITE 0.25% IRRIG 473 ML BOTTLE TOP SCH ×2 (09:53→21:23)
[2016-11-29] MEDS: GENTAMICIN INJ 100 ML IV SCH ×2 (11:16→21:25)
[2016-11-29] MEDS: VANCOMYCIN INJ 1,500 MG in SODIUM CHLORIDE 0.9% 500 ML IV SCH ×2 (14:59→21:29)
[2016-11-30] MEDS: methylPREDNISolone SOD SUC 125 MG/2 ML VIAL IV SCH ×2 (01:44→13:42)
[2016-11-30] MEDS: ALBUTEROL 2.5 MG/3 ML NEB RESP TX SCH ×6 (02:15→23:15)
[2016-11-30 04:14] LABS: Basophils % 0.1 % (0.0-0.8); Eosinophils % 0.1 % (0.00-10.9); Hematocrit 27.5 VOL% (42.0-52.0); Hemoglobin 8.9 GM/DL (14.0-18.0); Immature Granulocytes % 4.8 %; Immature Granulocytes Absolute 0.85 #; Lymphocytes # 0.4 10*3/uL (1.4-4.0); Mean Corpuscular HGB Conc 32.4 GM/DL (32-36); Mean Corpuscular Hemoglobin 30 PG (27-34); Mean Corpuscular Volume 92.9 FL (87-102); Mean Platelet Volume 11.5 FL (9.6-12.0); Monocytes # 0.8 10*3/uL (0.11-0.8); Monocytes % 4.7 % (1.7-12.7); Neutrophils # 15.5 10*3/uL (1.4-7.4); Neutrophils % 88.3 % (38.7-73.9); Platelet Count 314 T/CUMM (130-400); Red Blood Count 2.96 MC/CUMM (3.8-5.5); Red Cell Distribution Width 14.7 % (9.3-17.3); White Blood Count 17.6 T/CUMM (4-12)
[2016-11-30 04:27] LABS: Calcium 7.6 MG/DL (8.5-10.1); Magnesium 2.4 MG/DL (1.8-2.4); Osmolality,Calculated 294.8 MOS/KG (273-304); Potassium 4.3 MMOL/L (3.5-5.1)
[2016-11-30 05:13] LABS: ABG Base Excess 4.3 MMOL/L (-2.5-2.5); ABG HCO3 28.2 MMOL/L (20-26); ABG Oxygen Saturation 91.3 % (95-100); ABG PCO2 42.6 MM HG (35-48); ABG PH 7.439 (7.35-7.45); ABG PO2 62.1 MM HG (80-95); ABG TCO2 26.4 MMOL/L (23-27)
[2016-11-30 05:14] LABS: Hypochromasia 1+; Lymphocytes 3 % (20-55); Metamyelocytes 1 %; Microcytosis 1+; Myelocytes 2 %; Segmented Neutrophils 92 % (50-85); Total Cells Counted 100
[2016-11-30 05:15] LABS: Platelet Estimate Normal
--- NOTE | 2016-11-30 06:39 | XRay Report ---
XR chest 1V portable Indication: Extubation. Comparison: Chest x-ray 11/29/2016 Technique: Portable AP chest was performed. Findings: Endotracheal tube and NG tube have been removed. Diffusely distributed airspace opacities most prevalent in the mid to lower left chest. Additionally with right lung base involvement worsened to some degree on the left which may reflect difference in technique and inspiration. Stranding within the right lung base likely in part reflects a component of atelectasis. Right IJ central venous catheter is stable. Bones and soft tissues are stable. Heart size is stable. Impression: 1. Interval extubation. 2. Parenchymal opacities throughout the left lung minimally worsened which may in part reflect differences in technique. 3. A component of subsegmental atelectasis within the right lower lobe is suggested. 11/30/2016 6:35 AM PROCEDURE INTERPRETED AT [facility] DEPARTMENT OF RADIOLOGY Final Report Signed by: Dr. Jake Clemens
[2016-11-30] MEDS: ARFORMOTEROL 15 MCG/2 ML NEB RESP TX SCH ×2 (07:09→20:33)
[2016-11-30] MEDS: INSULIN LISPRO 100 UNIT/ML SUBCUT SCH ×4 (07:56→20:22)
[2016-11-30] MEDS: CLINDAMYCIN INJ 900 MG in PREMIX 1 EACH IV SCH ×3 (08:24→16:49)
[2016-11-30] MEDS: FLUoxetine 20 MG CAPSULE PO SCH (08:25)
[2016-11-30] MEDS: PANTOPRAZOLE 40 MG VIAL IV SCH (08:25)
[2016-11-30] MEDS: GLIMEPIRIDE 2 MG TABLET PO SCH (08:25)
[2016-11-30] MEDS: FUROSEMIDE 40 MG TABLET PO SCH (08:25)
[2016-11-30] MEDS: APIXABAN 5 MG TABLET PO SCH ×2 (08:25→20:01)
[2016-11-30] MEDS: AMIODARONE 200 MG TABLET PO SCH (08:25)
--- NOTE | 2016-11-30 08:32 | Pulmonology Progress Note ---
Pulmonary - PN: Subj Interval history: Patient is a 66-year-old white man with COPD who has recently had a repair of a diaphragmatic hernia and an abdominal ventral hernia. Postop he did relatively well and was home several days. He came back yesterday with fever and elevated white count and pleurisy. He was felt to be septic with pneumonia. Over the weekend he was doing better on Saturday and moved to a regular room. He developed more shortness of breath and had to be moved back to the ICU. His chest x-ray showed diffuse infiltrates and he did diurese fairly well. However he continued to have respiratory distress and required intubation. He is reasonably comfortable on the ventilator at present. He still has extensive bilateral infiltrates. He does have staph growing in his blood stream. Yesterday he was extubated and is done fairly well. He feels like he is breathing okay and feels much better. He says his abdominal soreness is much better. He has stable vital signs and looks like he is more comfortable. Exam (Progress Note) - Constitutional Vitals: Period Temp Pulse Resp BP Sys/Padgett Pulse Ox Last 24 Hr 97.3 F-98.9 F 53-75 13-26 109-137/49-77 87-100 Exam: General appearance: no distress, over weight, other (He is alert and talking and in no respiratory distress.) - Head Head exam: Present: normal inspection, normocephalic - Eye Eye exam: Present: EOMI. Absent: scleral icterus Pupils: Present: NASH - ENT ENT exam: Present: normal exam - Neck Neck exam: Present: normal inspection. Absent: lymphadenopathy, thyromegaly - Respiratory Respiratory exam: Present: He has good breath sounds bilaterally and he is moving air okay with much less rales and rhonchi. - Cardiovascular Cardiovascular exam: Present: He has a slow regular rhythm now and his blood pressure is stable. - GI/Abdominal GI/Abdominal exam: Present: His abdomen is softer and the redness is much better. He is not as tender. - Extremities Exam Extremities exam: Absent: calf tenderness, edema - Neurological Exam Neurological exam: Present: alert, he is moving his extremities okay. - Psychiatric Psychiatric exam: Present: He is resting well and looks fairly calm. - Skin Skin exam: Present: warm, dry Results - Labs CBC & BMP: 11/30/16 04:00 11/30/16 03:55 Labs: His PO2 is 62 with a PCO2 of 42 and a pH of 7.43 - Diagnostic Findings Procedure: Chest x-ray: image reviewed by me, report reviewed by me (Chest x- ray is much better with minimal changes in the bases.) Assessment and Plan (1) Right lower lobe pneumonia Status: Acute Assessment and plan: Patient comes in with fever and elevated white count and looks like he has right lower lobe pneumonia. He will be covered with antibiotics for a hospital- acquired pneumonia. He is growing MRSA out of his blood stream. He is getting vancomycin. Will add gentamicin. Clinically he looks like he is feeling much better. He did well coming off the ventilator and his breathing is much improved Current Visit: Yes Qualifiers: Pneumonia type: due to unspecified organism Qualified Code(s): J18.1 - Lobar pneumonia, unspecified organism (2) Sepsis Status: Acute Assessment and plan: He has been hemodynamically stable and his blood pressure is much better. He is hemodynamically stable at present Current Visit: Yes Qualifiers: Sepsis type: sepsis due to unspecified organism Qualified Code(s): A41.9 - Sepsis, unspecified organism (3) Abdominal wall hernia Status: Acute Assessment and plan: He is much less tender and his abdomen is doing better. Current Visit: No (4) COPD (chronic obstructive pulmonary disease) Status: Chronic Assessment and plan: He does have COPD and obstructive sleep apnea and came off the ventilator fairly well. His breathing is doing well and he will continue with respiratory therapy. Hopefully we can increase his activity and he can go to a regular room. Current Visit: No Qualifiers: COPD type: unspecified COPD Qualified Code(s): J44.9 - Chronic obstructive pulmonary disease, unspecified (5) Status post hernia repair Status: Acute Assessment and plan: He has had recent surgery but his wound is apparently stable. He says his abdominal pain is much better now. Current Visit: Yes (6) Acute and chronic respiratory failure Status: Resolved Assessment and plan: Patient developed worsening respiratory distress and had to be intubated. He is doing much better and his chest x-ray is much clearer. He came off the ventilator without any problems and is breathing better now. Current Visit: Yes
[2016-11-30] MEDS: GENTAMICIN INJ 100 ML IV SCH (09:12)
--- NOTE | 2016-11-30 09:40 | Event Note ---
General Surgery Progress Note Chief complaint This patient is a 66-year-old man readmitted with pneumonia following a right chest wall and abdominal wall hernia repair with mesh on 11/13/2016 Interval history Pt has been extubated and breathing well - sitting up in chair this am. He is voiding well and had BM this morning. He is tolerating diabetic diet. His wound VAC is working well. Physical exam Afebrile; tmax 99.0 this am. 9am RR elevated @ 26 - pt mobilizing. O2 sat 96% on 6L NC. BP and HR stable. Chest is clear Heart is regular with no murmurs Abdomen is soft and nontender with normal bowel sounds Wound vac intact @ 100mmHG continuous. Remaining incisions are well-healed with chacorta out. Ext: diffuse mild anasarca; calves nontender Labs The white blood cell count is stable at 16,900 Hemoglobin is stable Creatinine is normal Bronch washing culture: no growth @ 24hrs Admission blood cx 2/2 MRSA Repeat blood cx 1/2 MRSA. Sputum cx: MRSA Abd wound cx: MRSA Imaging Chest x-ray looks improved today Assessment and plan Improved from pulmonary standpoint. Continue abx. Pt on 2L home O2 - currently 6L. Continue antibiotics - taper pending bronchial wash final cultures if ok with pulmonology team. Continue wound care with wound VAC - will change today. Continue abd binder. Continue diabetic diet as tolerated Repeat labs in am. D/c brunson DVT ppx: continue eliquis GI ppx: continue PPI Will consider transfer out of ICU if continues to do well.
[2016-11-30] MEDS: MORPHINE 2 MG/1 ML SYRINGE IV PRN ×2 (11:40→20:01)
[2016-11-30] MEDS: SODIUM HYPOCHLORITE 0.25% IRRIG 473 ML BOTTLE TOP SCH ×2 (11:41→20:11)
[2016-11-30] MEDS ORDERED: GENTAMICIN INJ 180 MG in SODIUM CHLORIDE 0.9% 100 ML IV SCH (22:00)
[2016-11-30] MEDS: VANCOMYCIN INJ 1,500 MG in SODIUM CHLORIDE 0.9% 500 ML IV SCH (22:57)
[2016-12-01] MEDS: CLINDAMYCIN INJ 900 MG in PREMIX 1 EACH IV SCH ×3 (01:20→16:04)
[2016-12-01] MEDS: methylPREDNISolone SOD SUC 125 MG/2 ML VIAL IV SCH ×2 (01:31→16:01)
[2016-12-01] MEDS: ALBUTEROL 2.5 MG/3 ML NEB RESP TX SCH ×5 (04:03→19:54)
[2016-12-01 07:05] LABS: Albumin 2.1 G/DL (3.4-5.0); Bilirubin,Total 0.7 MG/DL (0.2-1.0); Calcium 8.2 MG/DL (8.5-10.1); Osmolality,Calculated 293.8 MOS/KG (273-304); Potassium 4.6 MMOL/L (3.5-5.1); Total Protein 4.8 G/DL (6.4-8.3)
[2016-12-01] MEDS: ARFORMOTEROL 15 MCG/2 ML NEB RESP TX SCH ×2 (07:29→19:54)
[2016-12-01] MEDS: INSULIN LISPRO 100 UNIT/ML SUBCUT SCH ×4 (08:21→20:14)
[2016-12-01] MEDS: FUROSEMIDE 40 MG TABLET PO SCH (09:27)
[2016-12-01] MEDS: APIXABAN 5 MG TABLET PO SCH ×2 (09:27→20:15)
[2016-12-01] MEDS: PANTOPRAZOLE 40 MG TABLET PO SCH (09:27)
[2016-12-01] MEDS: FLUoxetine 20 MG CAPSULE PO SCH (09:27)
[2016-12-01] MEDS: GLIMEPIRIDE 2 MG TABLET PO SCH (09:28)
[2016-12-01] MEDS: AMIODARONE 200 MG TABLET PO SCH (09:28)
--- NOTE | 2016-12-01 10:02 | Event Note ---
Patient is doing well. Feeling better. Afebrile vital signs stable. Wound VAC with a good seal. Abdomen is soft nontender nondistended and he is tolerating diet. Continue antibiotics.
[2016-12-01] MEDS: SODIUM HYPOCHLORITE 0.25% IRRIG 473 ML BOTTLE TOP SCH ×2 (10:09→20:14)
--- NOTE | 2016-12-01 11:33 | Pulmonology Progress Note ---
Pulmonary - PN: Subj Interval history: This 66-year-old white male had surgery for a ventral and diaphragmatic hernia. He had to go back on the ventilator a week or so ago but is off now. Seems to be less short of breath but does get dyspneic with minimal effort. Exam (Progress Note) - Constitutional Vitals: Period Temp Pulse Resp BP Sys/Padgett Pulse Ox Last 24 Hr 97.5 F-98.6 F 59-87 18-24 117-140/59-74 72-98 Exam: Vital signs normal. Respiratory rate in the upper 20s. O2 sat in the lower 90s on nasal oxygen. Pupils react to light. Throat clear. Neck supple no bruits. Chest reveals a few rhonchi at the right base equal breath sounds otherwise. Heart normal rate and rhythm no murmurs. Abdomen soft. Bandages over his ventral wall. Bowel sounds present. Extremities no clubbing cyanosis edema. Calves nontender Results - Labs CBC & BMP: 11/30/16 04:00 12/01/16 05:11 Lab Results: I have reviewed the past 24 hour labs Assessment and Plan (1) Diaphragmatic hernia Status: Resolved Assessment and plan: Status post repair. Had some postoperative respiratory failure but this is improved. Current Visit: No (2) Abdominal wall hernia Status: Acute Assessment and plan: Again status post repair. Starting to have bowel movements. Current Visit: No (3) COPD (chronic obstructive pulmonary disease) Status: Chronic Assessment and plan: Continuing bronchodilators and nasal oxygen. Current Visit: No Qualifiers: COPD type: unspecified COPD Qualified Code(s): J44.9 - Chronic obstructive pulmonary disease, unspecified (4) Right lower lobe pneumonia Status: Acute Assessment and plan: Clinically improved. Last chest x-ray showed definite improvement. Current Visit: Yes (5) Acute and chronic respiratory failure Status: Resolved Assessment and plan: Still requiring oxygen. Still requiring BiPAP at night. PCO2 was normal post extubation. Current Visit: Yes
[2016-12-01] MEDS: MORPHINE 2 MG/1 ML SYRINGE IV PRN (16:02)
[2016-12-01] MEDS: GENTAMICIN INJ 180 MG in SODIUM CHLORIDE 0.9% 100 ML IV SCH (17:19)
[2016-12-01] MEDS: VANCOMYCIN INJ 1,500 MG in SODIUM CHLORIDE 0.9% 500 ML IV SCH (22:06)
[2016-12-02] MEDS: CLINDAMYCIN INJ 900 MG in PREMIX 1 EACH IV SCH ×3 (00:10→15:38)
[2016-12-02] MEDS: ALBUTEROL 2.5 MG/3 ML NEB RESP TX SCH ×6 (00:32→19:01)
[2016-12-02] MEDS: methylPREDNISolone SOD SUC 125 MG/2 ML VIAL IV SCH ×2 (02:01→14:28)
[2016-12-02] MEDS: ARFORMOTEROL 15 MCG/2 ML NEB RESP TX SCH ×2 (07:59→19:01)
[2016-12-02] MEDS: FUROSEMIDE 40 MG TABLET PO SCH (09:10)
[2016-12-02] MEDS: FLUoxetine 20 MG CAPSULE PO SCH (09:10)
[2016-12-02] MEDS: INSULIN LISPRO 100 UNIT/ML SUBCUT SCH ×4 (09:10→20:54)
[2016-12-02] MEDS: AMIODARONE 200 MG TABLET PO SCH (09:11)
[2016-12-02] MEDS: PANTOPRAZOLE 40 MG TABLET PO SCH (09:11)
[2016-12-02] MEDS: GLIMEPIRIDE 2 MG TABLET PO SCH (09:11)
[2016-12-02] MEDS: APIXABAN 5 MG TABLET PO SCH ×2 (09:12→20:54)
[2016-12-02] MEDS: SODIUM HYPOCHLORITE 0.25% IRRIG 473 ML BOTTLE TOP SCH ×2 (09:47→20:39)
--- NOTE | 2016-12-02 10:04 | Event Note ---
Patient complains of urinary urgency, hesitancy, and burning with initiation of urination. He is afebrile his vital signs are stable. Abdomen is benign. Wound VAC with a good seal. We will check a urinalysis. Patient states he was on medication for his prostate. We will find out what that was and have it restarted.
--- NOTE | 2016-12-02 10:37 | Pulmonology Progress Note ---
Pulmonary - PN: Subj Interval history: This 66-year-old white male had surgery for a ventral and diaphragmatic hernia. He had to go back on the ventilator a week or so ago but is off now. Seems to be less short of breath but does get dyspneic with minimal effort. 12/02/2016 patient's breathing is better. No other new complaints. Patient relates that he is having difficulty voiding. He was on Cardura for BPH at home and it has not been continued. Will resume it now if his blood pressure is okay. Exam (Progress Note) - Constitutional Vitals: Period Temp Pulse Resp BP Sys/Padgett Pulse Ox Last 24 Hr 97.3 F-99 F 60-83 16-25 126-160/53-78 75-98 Exam: Vital signs normal. Respiratory rate in the upper 20s. O2 sat in the lower 90s on nasal oxygen. Pupils react to light. Throat clear. Neck supple no bruits. Chest reveals a few rhonchi at the right base equal breath sounds otherwise. Heart normal rate and rhythm no murmurs. Abdomen soft. Bandages over his ventral wall. Bowel sounds present. Extremities no clubbing cyanosis edema. Calves nontender little change from yesterday. Results - Labs CBC & BMP: 11/30/16 04:00 12/01/16 05:11 Lab Results: I have reviewed the past 24 hour labs Assessment and Plan (1) Diaphragmatic hernia Status: Resolved Assessment and plan: Status post repair. Had some postoperative respiratory failure but this is improved. 12/02/2016 status post repair. Current Visit: No (2) Abdominal wall hernia Status: Acute Assessment and plan: Again status post repair. Starting to have bowel movements. Total of 3017 also status post repair. Current Visit: No (3) COPD (chronic obstructive pulmonary disease) Status: Chronic Assessment and plan: Continuing bronchodilators and nasal oxygen. 12/02/2016 no active bronchospasm. Still has a few rales. O2 sats look good. Continuing treatment. Current Visit: No Qualifiers: COPD type: unspecified COPD Qualified Code(s): J44.9 - Chronic obstructive pulmonary disease, unspecified (4) Right lower lobe pneumonia Status: Acute Assessment and plan: Clinically improved. Last chest x-ray showed definite improvement. 12/02/2016 pneumonia clinically improved. Current Visit: Yes (5) Acute and chronic respiratory failure Status: Resolved Assessment and plan: Still requiring oxygen. Still requiring BiPAP at night. PCO2 was normal post extubation. 12/02/2016 still requiring low flow oxygen. Current Visit: Yes
[2016-12-02] MEDS: GENTAMICIN INJ 180 MG in SODIUM CHLORIDE 0.9% 100 ML IV SCH (12:55)
[2016-12-02] MEDS: LISINOPRIL 5 MG TABLET PO SCH (12:56)
[2016-12-02] MEDS: DOXAZOSIN 4 MG TABLET PO SCH (20:54)
[2016-12-02] MEDS: MORPHINE 2 MG/1 ML SYRINGE IV PRN (22:03)
[2016-12-02] MEDS: VANCOMYCIN INJ 1,500 MG in SODIUM CHLORIDE 0.9% 500 ML IV SCH (23:06)
[2016-12-03] MEDS: ALBUTEROL 2.5 MG/3 ML NEB RESP TX SCH ×6 (00:13→19:35)
[2016-12-03] MEDS: CLINDAMYCIN INJ 900 MG in PREMIX 1 EACH IV SCH ×2 (01:05→09:05)
[2016-12-03] MEDS: methylPREDNISolone SOD SUC 125 MG/2 ML VIAL IV SCH ×2 (01:45→17:54)
[2016-12-03] MEDS: MORPHINE 2 MG/1 ML SYRINGE IV PRN ×2 (05:30→11:21)
[2016-12-03 07:03] LABS: Apearance,Urine Slightly Hazy (Clear); Bilirubin,Urine Negative (Negative); Blood, Urine Negative (Negative); Glucose,Urine (UA) Negative (Negative); Ketones,Urine Negative (Negative); Mucus,Urine Occasional /LPF (Occasional); Nitrite,Urine Negative (Negative); Protein,Urine Negative; RBC,Urine <1 /HPF (0-4); Squamous Epithelial Cell,Urine Occasional /HPF (0-10); Urine Color Yellow (Yellow); Urine Specific Gravity 1.017 (1.001-1.035); Urine Urobilinogen < 2.0 EU/DL (0.2-1.0); WBC,Urine 1 /HPF (0-6)
[2016-12-03] MEDS: ARFORMOTEROL 15 MCG/2 ML NEB RESP TX SCH ×2 (07:03→07:35)
[2016-12-03 07:10] LABS: Calcium 7.8 MG/DL (8.5-10.1); Osmolality,Calculated 288.3 MOS/KG (273-304); Potassium 4.4 MMOL/L (3.5-5.1)
[2016-12-03] MEDS: GENTAMICIN INJ 180 MG in SODIUM CHLORIDE 0.9% 100 ML IV SCH (07:28)
[2016-12-03] MEDS: INSULIN LISPRO 100 UNIT/ML SUBCUT SCH ×4 (08:54→20:15)
[2016-12-03] MEDS: AMIODARONE 200 MG TABLET PO SCH (08:55)
[2016-12-03] MEDS: GLIMEPIRIDE 2 MG TABLET PO SCH (08:55)
[2016-12-03] MEDS: APIXABAN 5 MG TABLET PO SCH ×2 (08:56→21:52)
[2016-12-03] MEDS: LISINOPRIL 5 MG TABLET PO SCH (08:57)
[2016-12-03] MEDS: FUROSEMIDE 40 MG TABLET PO SCH (08:58)
[2016-12-03] MEDS: PANTOPRAZOLE 40 MG TABLET PO SCH (08:58)
[2016-12-03] MEDS: FLUoxetine 20 MG CAPSULE PO SCH (08:58)
--- NOTE | 2016-12-03 09:33 | Pulmonology Progress Note ---
Pulmonary - PN: Subj Interval history: Patient is a 66-year-old white man with COPD who has recently had a repair of a diaphragmatic hernia and an abdominal ventral hernia. Postop he did relatively well and was home several days. He came back yesterday with fever and elevated white count and pleurisy. He was felt to be septic with pneumonia. Over the weekend he was doing better on Saturday and moved to a regular room. He developed more shortness of breath and had to be moved back to the ICU. His chest x-ray showed diffuse infiltrates and he did diurese fairly well. However he continued to have respiratory distress and required intubation. He is reasonably comfortable on the ventilator at present. He still has extensive bilateral infiltrates. He does have staph growing in his blood stream. He has had a fairly good weekend and feels like his breathing is better. He is eating better and his abdominal wound is doing okay. He has had trouble voiding and his Cardura was restarted. He says is doing a little better. Overall he feels like he is improving. Exam (Progress Note) - Constitutional Vitals: Period Temp Pulse Resp BP Sys/Padgett Pulse Ox Last 24 Hr 96.9 F-98.6 F 63-82 16-21 100-137/51-70 18-100 Exam: General appearance: no distress, over weight, other (He is comfortable and not having any respiratory distress now.) - Head Head exam: Present: normal inspection, normocephalic - Eye Eye exam: Present: EOMI. Absent: scleral icterus Pupils: Present: NASH - ENT ENT exam: Present: normal exam - Neck Neck exam: Present: normal inspection. Absent: lymphadenopathy, thyromegaly - Respiratory Respiratory exam: Present: He has good breath sounds bilaterally and he is moving air okay with much less rales and rhonchi. - Cardiovascular Cardiovascular exam: Present: He has a slow regular rhythm now and his blood pressure is stable. - GI/Abdominal GI/Abdominal exam: Present: His abdomen is softer and the redness is much better. He has a wound VAC in place. He is not as tender. - Extremities Exam Extremities exam: Absent: calf tenderness, edema - Neurological Exam Neurological exam: Present: alert, he is moving his extremities okay. - Psychiatric Psychiatric exam: Present: He is resting well and looks fairly calm. - Skin Skin exam: Present: warm, dry Results - Labs CBC & BMP: 11/30/16 04:00 12/03/16 05:30 Assessment and Plan (1) Right lower lobe pneumonia Status: Acute Assessment and plan: Patient comes in with fever and elevated white count and looks like he has right lower lobe pneumonia. He will be covered with antibiotics for a hospital- acquired pneumonia. He is growing MRSA out of his blood stream. He is getting vancomycin. Will add gentamicin. Clinically he looks like he is feeling much better. His respiratory status is stable at present. Current Visit: Yes Qualifiers: Pneumonia type: due to unspecified organism Qualified Code(s): J18.1 - Lobar pneumonia, unspecified organism (2) Sepsis Status: Acute Assessment and plan: He has been hemodynamically stable and his blood pressure is much better. He is hemodynamically stable at present. His creatinine is down to 1.0. Current Visit: Yes Qualifiers: Sepsis type: sepsis due to unspecified organism Qualified Code(s): A41.9 - Sepsis, unspecified organism (3) Abdominal wall hernia Status: Acute Assessment and plan: He is much less tender and his abdomen is doing better. He does have a wound VAC in place Current Visit: No (4) COPD (chronic obstructive pulmonary disease) Status: Chronic Assessment and plan: He does have COPD and obstructive sleep apnea and came off the ventilator fairly well. His breathing is doing well and he will continue with respiratory therapy. He says he is not short of breath now and is moving around a little. Current Visit: No Qualifiers: COPD type: unspecified COPD Qualified Code(s): J44.9 - Chronic obstructive pulmonary disease, unspecified (5) Status post hernia repair Status: Acute Assessment and plan: He has had recent surgery but his wound is apparently stable. He says his abdominal pain is much better now. Current Visit: Yes (6) Acute and chronic respiratory failure Status: Resolved Assessment and plan: Patient developed worsening respiratory distress and had to be intubated. He is doing much better and his chest x-ray is much clearer. He came off the ventilator without any problems and is breathing better now. He says is not that short of breath now is coughing okay. He is still requiring respiratory therapy. Current Visit: Yes
--- NOTE | 2016-12-03 10:53 | Event Note ---
General Surgery Progress Note Chief complaint This patient is a 66-year-old man readmitted with pneumonia following a right chest wall and abdominal wall hernia repair with mesh on 11/13/2016 Interval history No events over the weekend. Blood cultures grew 1 out of 2 bottles of MRSA and the patient had a light growth of MRSA from his bronchial washings as well as from his wound cultures. He is doing better and was extubated on and moved to the floor over the weekend. He is having some issues with his urinary retention but he was restarted on his home medication over the weekend. He is tolerating a diet well. Physical exam Afebrile, normal vital signs Chest is clear Heart is regular with no murmurs Abdomen is soft and nontender with normal bowel sounds There is no erythema of the wound. The MAYTE drain is out and the wound VAC is working well. The wound VAC was taken down and the dressing was changed. There is exposed mesh at the base of the wound but no evidence of infection. Labs Chemistry reviewed Imaging None new Assessment and plan I am going to narrow the patient's antibiotics based on his culture results. He will need to be on IV antibiotics for 6 weeks. If his repeat blood cultures today are negative then we will get a PICC line placed and transfer him to a swing bed in [place] later this week. Continue wound VAC of the right sided chest wall wound and start using irrigating back with [employer]
[2016-12-03] MEDS: SODIUM HYPOCHLORITE 0.25% IRRIG 473 ML BOTTLE IRRIG SCH (11:25)
[2016-12-03] MEDS: SODIUM HYPOCHLORITE 0.25% IRRIG 473 ML BOTTLE TOP SCH ×2 (12:39→21:50)
[2016-12-03] MEDS: VANCOMYCIN INJ 1,500 MG in SODIUM CHLORIDE 0.9% 500 ML IV SCH (17:58)
[2016-12-03] MEDS: DOXAZOSIN 4 MG TABLET PO SCH (21:51)
[2016-12-04] MEDS: ALBUTEROL 2.5 MG/3 ML NEB RESP TX SCH ×7 (00:15→23:10)
[2016-12-04] MEDS: GENTAMICIN INJ 180 MG in SODIUM CHLORIDE 0.9% 100 ML IV SCH (00:59)
[2016-12-04] MEDS: methylPREDNISolone SOD SUC 125 MG/2 ML VIAL IV SCH (03:24)
[2016-12-04] MEDS: ARFORMOTEROL 15 MCG/2 ML NEB RESP TX SCH ×2 (07:56→19:55)
[2016-12-04] MEDS: INSULIN LISPRO 100 UNIT/ML SUBCUT SCH ×4 (08:26→21:47)
--- NOTE | 2016-12-04 08:49 | Event Note ---
General Surgery Progress Note Chief complaint This patient is a 66-year-old man readmitted with pneumonia following a right chest wall and abdominal wall hernia repair with mesh on 11/13/2016 Interval history No events overnight. Patient feels better and his urination is improving. He is afebrile. Is tolerating his diet. He set up yesterday with physical therapy and hopes to be able to walk some today. Repeat blood cultures were positive in 1 out of 2 bottles but actually grew staph hominis instead of staph aureus. Physical exam Afebrile, normal vital signs Chest is clear Heart is regular with no murmurs Abdomen is soft and nontender with normal bowel sounds There is no erythema of the wound. The MAYTE drain is out and the wound VAC is working well. The wound VAC is having some blockage alarms but it is working well now. Imaging None new Assessment and plan Continue vancomycin and gentamicin. Await final results of repeat blood cultures. Will get infectious disease assistance in managing his antibiotics. Continue wound VAC for open wound of right chest wall. Hopefully he can be transferred to [facility] bed later this week. Take out central line as a potential source of persistent bacteremia
--- NOTE | 2016-12-04 08:57 | Pulmonology Progress Note ---
Pulmonary - PN: Subj Interval history: Patient is a 66-year-old white man with COPD who has recently had a repair of a diaphragmatic hernia and an abdominal ventral hernia. Postop he did relatively well and was home several days. He came back yesterday with fever and elevated white count and pleurisy. He was felt to be septic with pneumonia. Over the weekend he was doing better on Saturday and moved to a regular room. He developed more shortness of breath and had to be moved back to the ICU. His chest x-ray showed diffuse infiltrates and he did diurese fairly well. However he continued to have respiratory distress and required intubation. He is reasonably comfortable on the ventilator at present. He still has extensive bilateral infiltrates. He does have staph growing in his blood stream. He has had a fairly good weekend and feels like his breathing is better. He said he had a good night and is voiding better now. He is coughing a little bit but says his breathing is okay. He still has a wound VAC in place. His soreness is better. He will probably go to a swing bed and continue IV antibiotics. Exam (Progress Note) - Constitutional Vitals: Period Temp Pulse Resp BP Sys/Padgett Pulse Ox Last 24 Hr 97.9 F-99.1 F 60-86 18-20 105-127/49-70 90-99 Exam: General appearance: no distress, over weight, other (He is comfortable and not having any respiratory distress now.) - Head Head exam: Present: normal inspection, normocephalic - Eye Eye exam: Present: EOMI. Absent: scleral icterus Pupils: Present: NASH - ENT ENT exam: Present: normal exam - Neck Neck exam: Present: normal inspection. Absent: lymphadenopathy, thyromegaly - Respiratory Respiratory exam: Present: He has good breath sounds bilaterally and he is moving air okay with much less rales and rhonchi. He is breathing comfortably. - Cardiovascular Cardiovascular exam: Present: He has a slow regular rhythm now and his blood pressure is stable. - GI/Abdominal GI/Abdominal exam: Present: His abdomen is softer and the redness is much better. He has a wound VAC in place. He is not as tender. - Extremities Exam Extremities exam: Absent: calf tenderness, edema - Neurological Exam Neurological exam: Present: alert, he is moving his extremities okay. - Psychiatric Psychiatric exam: Present: He is resting well and looks fairly calm. - Skin Skin exam: Present: warm, dry Results - Labs CBC & BMP: 11/30/16 04:00 12/03/16 05:30 Assessment and Plan (1) Right lower lobe pneumonia Status: Acute Assessment and plan: Patient comes in with fever and elevated white count and looks like he has right lower lobe pneumonia. He will be covered with antibiotics for a hospital- acquired pneumonia. He is growing MRSA out of his blood stream. He is getting vancomycin. Will add gentamicin. Clinically he looks like he is feeling much better. His respiratory status is stable at present. He is still requiring IV antibiotics. Current Visit: Yes Qualifiers: Pneumonia type: due to unspecified organism Qualified Code(s): J18.1 - Lobar pneumonia, unspecified organism (2) Sepsis Status: Acute Assessment and plan: He has been hemodynamically stable and his blood pressure is much better. He is hemodynamically stable at present. His creatinine is down to 1.0. Overall he is stable. Current Visit: Yes Qualifiers: Sepsis type: sepsis due to unspecified organism Qualified Code(s): A41.9 - Sepsis, unspecified organism (3) Abdominal wall hernia Status: Acute Assessment and plan: He is much less tender and his abdomen is doing better. He does have a wound VAC in place Current Visit: No (4) COPD (chronic obstructive pulmonary disease) Status: Chronic Assessment and plan: He does have COPD and obstructive sleep apnea and came off the ventilator fairly well. His breathing is doing well and he will continue with respiratory therapy. He says he is not short of breath now and is moving around a little. Overall his breathing has improved. Current Visit: No Qualifiers: COPD type: unspecified COPD Qualified Code(s): J44.9 - Chronic obstructive pulmonary disease, unspecified (5) Status post hernia repair Status: Acute Assessment and plan: He has had recent surgery but his wound is apparently stable. He says his abdominal pain is much better now. Current Visit: Yes (6) Acute and chronic respiratory failure Status: Resolved Assessment and plan: Patient developed worsening respiratory distress and had to be intubated. He is doing much better and his chest x-ray is much clearer. He came off the ventilator without any problems and is breathing better now. He says is not that short of breath now is coughing okay. He is still requiring respiratory therapy. Current Visit: Yes
[2016-12-04] MEDS: methylPREDNISolone SOD SUC 40 MG/1 ML VIAL IV SCH ×2 (09:54→21:36)
[2016-12-04] MEDS: GLIMEPIRIDE 2 MG TABLET PO SCH (09:58)
[2016-12-04] MEDS: AMIODARONE 200 MG TABLET PO SCH (09:59)
[2016-12-04] MEDS: PANTOPRAZOLE 40 MG TABLET PO SCH (10:00)
[2016-12-04] MEDS: FUROSEMIDE 40 MG TABLET PO SCH (10:00)
[2016-12-04] MEDS: FLUoxetine 20 MG CAPSULE PO SCH (10:01)
[2016-12-04] MEDS: LISINOPRIL 5 MG TABLET PO SCH (10:01)
[2016-12-04] MEDS: APIXABAN 5 MG TABLET PO SCH ×2 (10:01→21:36)
[2016-12-04] MEDS: SODIUM HYPOCHLORITE 0.25% IRRIG 473 ML BOTTLE TOP SCH ×2 (10:03→20:36)
[2016-12-04] MEDS: SODIUM HYPOCHLORITE 0.25% IRRIG 473 ML BOTTLE IRRIG SCH (10:03)
[2016-12-04] MEDS: VANCOMYCIN INJ 1,500 MG in SODIUM CHLORIDE 0.9% 500 ML IV SCH (11:58)
--- NOTE | 2016-12-04 13:05 | Infectious Disease Consult ---
Assessment and Plan (1) MRSA (methicillin resistant Staphylococcus aureus) septicemia Status: Acute Assessment and plan: This is a complicated infection with right lower lobe pneumonia and also infection of recent hernia surgery site. Further complicating cases the presence of foreign material at surgery site that is mesh. The coagulase- negative staph species in the most recent blood cultures represents contamination most likely. Recommendations: 1. Because of the complexed nature of this infection and the presence of the mesh in the hernia, the patient will require 6 weeks of antibiotic therapy for the MRSA. That will be 6 weeks from the date of the first culture that was negative for MRSA. Thus last day of vancomycin therapy will be January 06. 2. Can discontinue gentamicin 3. Close monitoring of renal function, it should be checked at least 3 times per week that is Saturday. Vancomycin trough levels will also need to be monitored intermittently with goal trough level 15-20. 4. I am going to add rifampin 300 mg twice a day, given presence of the mesh which unfortunately cannot be removed anytime soon given complexed nature of surgery, per my discussion with Dr. Whittaker 5. Agree with removal of the central line. Once we see that blood cultures are negative then he can get a PICC line for completion of treatment. Thank you very much for the consult. Will follow. Discussed with Dr. Whittaker. Current Visit: Yes (2) Right lower lobe pneumonia Status: Acute Assessment and plan: Being treated with vancomycin. No additional need for gentamicin so this is being stopped. Current Visit: Yes Qualifiers: Pneumonia type: due to unspecified organism Qualified Code(s): J18.1 - Lobar pneumonia, unspecified organism (3) Sepsis Status: Acute Assessment and plan: Clinically improved. We will see what repeat white blood cell count is elevated today. Current Visit: Yes Qualifiers: Sepsis type: sepsis due to unspecified organism Qualified Code(s): A41.9 - Sepsis, unspecified organism (4) Status post hernia repair Status: Acute Current Visit: Yes (5) COPD (chronic obstructive pulmonary disease) Status: Chronic Current Visit: No Qualifiers: COPD type: unspecified COPD Qualified Code(s): J44.9 - Chronic obstructive pulmonary disease, unspecified (6) Diabetes Status: Chronic Current Visit: No Qualifiers: Diabetes mellitus type: type 2 Diabetes mellitus complication status: without complication (7) Hypertension Status: Chronic Current Visit: No History of Present Illness Chief complaint: positive blood cultures History of present illness: History obtained from patient and from review of his hospital records. Mr. Salas is a 66 year old male Who had repair of ventral and right-sided diaphragmatic hernia almost 2 weeks prior to this admission. Postoperatively he did okay and was sent home with a right-sided chest drain. Patient did okay at home initially but returned to the hospital on 22 November with fever right-sided pain and malaise. He was hypotensive and admitted to the ICU for presumed septic shock. Blood cultures done on admission subsequently came back positive for MRSA in 2 of 2 sets. It was subsequently felt that the patient had an infection in the area of the hernia repair which extended to the chest cavity. He was on the ventilator for about 4 days. He was transferred out of ICU 4 days ago and has been on vancomycin and gentamicin. He was also on clindamycin for some time. Overall he says he has improved significantly with minimal respiratory symptoms. He is on oxygen at baseline for COPD. The patient's repeat blood cultures on the came back positive for staph hominis in 1 of 2 sets and again repeated on 03 December GPC's are going in 1 of 2 sets. I am asked to assist with management. Patient has had a central line in the right IJ since admission to ICU. No fever recently. Home Medications Medication Instructions Recorded Confirmed Type Albuterol Sulfate [Proair HFA] 2 puff INH BID 06/18/16 11/22/16 History Doxazosin [Cardura] 4 mg PO BEDTIME 06/18/16 11/22/16 History Fluoxetine HCl 40 mg PO QAM 06/18/16 11/22/16 History Amiodarone Tab [Cordarone Tab] 100 mg PO QAM 07/10/16 11/22/16 History Glimepiride [Amaryl] 1 mg PO QAM 11/06/16 11/22/16 History Arformoterol Neb [Brovana] 15 mcg RESP TX RT BID 11/13/16 11/22/16 History Ergocalciferol (Vitamin D2) 50,000 unit PO Q3D 11/13/16 11/22/16 History [Vitamin D2] Apixaban [Eliquis] 5 mg PO BID #60 tablet 11/19/16 11/22/16 Rx HYDROcodone/ACETAMIN 5-325 [[place] 1 tablet PO Q6H PRN #20 tablet 11/19/16 Rx 5-325] Lisinopril [Prinivil] 5 mg PO DAILY #30 tablet 11/19/16 11/22/16 Rx Furosemide Tab [Lasix Tab] 40 mg PO QAM 11/22/16 11/22/16 History Potassium Chloride Cap/Tab [K Dur] 20 meq PO QAM 11/22/16 11/22/16 History Allergies Allergy/AdvReac Type Severity Reaction Status Date / Time adhesive tape Allergy RASH Verified 07/16/16 11:15 Amoxicillin [From Augmentin] Allergy Abdominal Verified 11/22/16 12:57 Pain clavulanic acid Allergy Abdominal Verified 11/22/16 12:56 [From Augmentin] Pain Sulfa (Sulfonamide Allergy ANAPHYLAXIS Verified 07/10/16 01:33 Antibiotics) LATEX Allergy RASH Uncoded 11/06/16 10:35 12 point system: reviewed and no additional remarkable complaints except as stated (Per HPI) Medical,Surgical,& Family Hx - Medical History Cardio: History of: Cardiac Dysrhythmia (Afib), CHF, Hypertension Comment Only: Cardiovascular Problems (DR ARCHULETA) Psychological: History of: Anxiety Disorders, Depression Neurology: No history of: Seizures HEENT: History of: Eye Problem (Cataracts removed), Dental Problems (PARTIAL TOP ), Glaucoma Endocrine: History of: Diabetes Mellitus (NIDDM), Dyslipidemia Rheumatology: History of;: Gout Respiratory: History of: Asthma, COPD, Obstructive Sleep Apnea (CPAP; HOME O2 @ 2L/MIN PER NC NEEDED), Pneumonia, Respiratory Problems (LARGE CHEST WALL HERNIA) Genitourinary: History of: Kidney Stones, Prostate Problems Musculoskeletal: History of: Back/Neck Problems, Herniated Disk Other: No history of: Anesthesia Reactions - Surgical History Cardiac Surgeries: Sugical HX of: Cardiac Catheterization HEENT Surgeries: Surgical HX of: Eye Surgery (CATARACTS), Tonsilectomy & Adenoidectomy Abdominal Surgeries: Surgical HX of: Appendectomy, Colonoscopy, EGD, Hernia Repair (11/13/16) Reproductive Surgeries: Patient denies;: Genitourinary Surgery - Family History Family History: Reports;: Family Cancer (DAD) - Social History Smoking Status: Never smoker Frequency of Alcohol Use: None Type of Drug Use: None Infectious Disease Exam H&P - Constitutional Vitals: Vital Signs Temp Pulse Resp BP Pulse Ox 97.7 F 83 18 122/69 95 12/04/16 12:02 12/04/16 12:02 12/04/16 12:02 12/04/16 12:02 12/04/16 12:02 Intake and Output 12/03/16 12/04/16 12/04/16 23:59 07:59 15:59 Intake Total 964.5 / 964.5 Output Total 250 / 250 350 / 350 400 / 400 Balance -250 / -250 -350 / -350 564.5 / 564.5 Intake: IV 604.5 / 604.5 Garamycin Inj 180 mg In 104.5 / 104.5 Ns 100 ml @ 200 mls/hr IV Q18H ESTHELA Rx#:[id number] Vancomycin Inj 1,000 mg 500 / 500 In Ns 500 ml @ 250 mls/hr IV Q18H ESTHELA Rx#: [id number] Oral 360 / 360 Output: Urine 250 / 250 350 / 350 400 / 400 Stool 0 / 0 Other: Voiding Method Brief Brief Urinal # Bowel Movements 1 Weight 111.13 kg Patient Weight 12/04/16 23:59 Weight 111.13 kg Exam: General: Patient relatively comfortable HEENT: Mucous membranes pink and moist, anicteric acyanotic, PERRLA, no oral exudates Neck: Supple, no thyroid gland enlargement, no lymphadenopathy Respiratory system: Breath sounds vesicular, no crepitations, scattered wheezes heard Cardiovascular: Normal S1 and S2, no murmurs appreciated Abdomen: Wound VAC present to surgical wound in region of right upper quadrant, normal bowel sounds, obese, nontender throughout Genitourinary: No suprapubic pain or bladder distention Extremities: Moderate bilateral leg edema Skin: No rash Reports - Labs CBC & BMP: 11/30/16 04:00 12/03/16 05:30 Labs: Laboratory Results - last 24 hr 12/03/16 12/03/16 12/04/16 17:06 20:11 06:55 POC Glucose 130 H 143 H 145 H 12/04/16 10:51 POC Glucose 167 H - Reports Microbiology: Microbiology 12/04/16 Unknown MRSA (PCR) - Final Blood MRSA Negative Staph aureus Negative 12/03/16 05:30 Blood Culture - Preliminary Blood Gram Positive Cocci 12/03/16 05:30 Blood Culture - Preliminary Blood No growth at 1 day - Impressions JARAD on 11/26 without evidence of endocarditis - Diagnostic Findings Procedure: Chest x-ray: image reviewed by me, report reviewed by me (Scattered infiltrates on left), CT - chest: image reviewed by me, report reviewed by me
[2016-12-04 19:14] LABS: Hematocrit 28.8 VOL% (42.0-52.0); Immature Granulocytes % 3.5 %; Immature Granulocytes Absolute 0.77 #; Lymphocytes # 0.3 10*3/uL (1.4-4.0); Lymphocytes % 1.4 % (21.2-54.2); Mean Corpuscular HGB Conc 31.3 GM/DL (32-36); Mean Corpuscular Hemoglobin 30 PG (27-34); Mean Platelet Volume 11.3 FL (9.6-12.0); Monocytes # 1.1 10*3/uL (0.11-0.8); Monocytes % 5.2 % (1.7-12.7); Neutrophils # 19.9 10*3/uL (1.4-7.4); Neutrophils % 89.9 % (38.7-73.9); Platelet Count 292 T/CUMM (130-400); Red Cell Distribution Width 15.2 % (9.3-17.3); White Blood Count 22.1 T/CUMM (4-12)
[2016-12-04 19:40] LABS: Hypersegmented Neutrophil 1+; Lymphocytes 6 % (20-55); Platelet Estimate Adequate; Segmented Neutrophils 93 % (50-85); Total Cells Counted 100
[2016-12-04 19:41] LABS: Ovalocytes Slight; Poikilocytosis Slight
[2016-12-04] MEDS: DOXAZOSIN 4 MG TABLET PO SCH (21:36)
[2016-12-05] MEDS: ALBUTEROL 2.5 MG/3 ML NEB RESP TX SCH ×5 (04:35→19:14)
[2016-12-05] MEDS: VANCOMYCIN INJ 1,500 MG in SODIUM CHLORIDE 0.9% 500 ML IV SCH ×2 (05:30→23:06)
[2016-12-05] MEDS: ARFORMOTEROL 15 MCG/2 ML NEB RESP TX SCH ×2 (07:02→19:14)
[2016-12-05] MEDS: INSULIN LISPRO 100 UNIT/ML SUBCUT SCH ×4 (08:12→21:39)
[2016-12-05] MEDS: methylPREDNISolone SOD SUC 40 MG/1 ML VIAL IV SCH ×2 (08:48→20:56)
[2016-12-05] MEDS: AMIODARONE 200 MG TABLET PO SCH (08:49)
[2016-12-05] MEDS: FUROSEMIDE 40 MG TABLET PO SCH (08:49)
[2016-12-05] MEDS: PANTOPRAZOLE 40 MG TABLET PO SCH (08:49)
[2016-12-05] MEDS: GLIMEPIRIDE 2 MG TABLET PO SCH (08:49)
[2016-12-05] MEDS: APIXABAN 5 MG TABLET PO SCH ×2 (08:49→20:56)
[2016-12-05] MEDS: FLUoxetine 20 MG CAPSULE PO SCH (08:49)
[2016-12-05] MEDS: LISINOPRIL 5 MG TABLET PO SCH (08:50)
--- NOTE | 2016-12-05 09:32 | Event Note ---
General Surgery Progress Note Chief complaint This patient is a 66-year-old man readmitted with pneumonia following a right chest wall and abdominal wall hernia repair with mesh on 11/13/2016 Interval history No new events. Physical exam Afebrile, normal vital signs Chest is clear Heart is regular with no murmurs Abdomen is soft and nontender with normal bowel sounds There is no erythema of the wound. The irrigating wound VAC is working well Imaging None new Assessment and plan Continue IV antibiotics. Central line has been removed. We are looking into placement at [facility].
--- NOTE | 2016-12-05 09:56 | Infectious Disease Progress ---
Assessment and Plan (1) MRSA (methicillin resistant Staphylococcus aureus) septicemia Status: Acute Assessment and plan: This is a complicated infection with right lower lobe pneumonia and also infection of recent hernia surgery site. Further complicating case is the presence of foreign material at surgery site, ie mesh. The coagulase-negative staph species in the most recent blood cultures represents contamination most likely. He is tolerating vancomycin with therapeutic trough level of about 16.2 and acceptable renal function. Recommendations: 1. Continue vancomycin 1.5 g every 18 hours. Last day of vancomycin therapy will be January 06. 2. Continue to monitor of renal function Saturday. Vancomycin trough levels can be monitored weekly at this point, with goal trough level 15- 20. 3. Hold placement of PICC until we document negative repeat blood cultures Current Visit: Yes (2) Right lower lobe pneumonia Status: Acute Assessment and plan: Being treated with vancomycin. Clinically improved. Current Visit: Yes Qualifiers: Pneumonia type: due to unspecified organism Qualified Code(s): J18.1 - Lobar pneumonia, unspecified organism (3) Sepsis Status: Acute Assessment and plan: Clinically improved though some worsening of leukocytosis last evening. Will monitor. Current Visit: Yes Qualifiers: Sepsis type: sepsis due to unspecified organism Qualified Code(s): A41.9 - Sepsis, unspecified organism (4) Status post hernia repair Status: Acute Current Visit: Yes (5) COPD (chronic obstructive pulmonary disease) Status: Chronic Current Visit: No Qualifiers: COPD type: unspecified COPD Qualified Code(s): J44.9 - Chronic obstructive pulmonary disease, unspecified (6) Diabetes Status: Chronic Current Visit: No Qualifiers: Diabetes mellitus type: type 2 Diabetes mellitus complication status: without complication (7) Hypertension Status: Chronic Current Visit: No (8) Candidal intertrigo Status: Acute Assessment and plan: This involves groin and intergluteal creases and is quite severe. Will treat with clotrimazole cream twice daily. Will give 1 dose of fluconazole; would have given for a few more days but there is an interaction with amiodarone. Current Visit: Yes Infectious Disease - PN: Subj Interval history: Patient continues to improve slowly however today he complains of feeling a role in the groin and buttock areas. He has not had any fever. Eating a little better overall and breathing better as well, less cough. Denies abdominal pain. Infectious Disease Exam (PN) - Constitutional Vitals: Temp Pulse Resp BP Pulse Ox 97 F L 76 16 139/71 99 12/05/16 07:09 12/05/16 07:12 12/05/16 07:12 12/05/16 07:09 12/05/16 07:12 General appearance: normal weight, no acute distress Exam: General appearance: Mildly dyspneic but was doing physical therapy - Eye Eye exam: Present: EOMI. no icterus Pupils: Present: NASH - ENT ENT exam: no oral exudates - Respiratory Respiratory exam: vesicular BS, by basilar crepitations, no wheezes - Cardiovascular Cardiovascular exam: regular rate and rhythm, no murmurs - GI/Abdominal GI/Abdominal exam: normal bowel sounds, soft, non-tender, no organomegaly or mass - Extremities Exam Extremities exam: Bilateral lower extremity edema - Skin Skin exam: Angry erythematous, macerated macular rash in gluteal crease and also in bilateral groin creases Results - Labs CBC & BMP: 12/04/16 18:52 12/03/16 05:30 Lab Results: I have reviewed the past 24 hour labs (ID of GPC's in blood pending but it is not MRSA) Quality Measures - VTE Contraindication to Pharmacological VTE Prophylaxis: Already on Theraputic Agent , No Prophylaxis Needed
[2016-12-05] MEDS ORDERED: FLUCONAZOLE 150 MG TABLET PO ONE (09:58)
[2016-12-05] MEDS: SODIUM HYPOCHLORITE 0.25% IRRIG 473 ML BOTTLE TOP SCH ×2 (10:53→23:04)
[2016-12-05] MEDS: SODIUM HYPOCHLORITE 0.25% IRRIG 473 ML BOTTLE IRRIG SCH (10:54)
[2016-12-05] MEDS: CLOTRIMAZOLE 1% CREAM 15 GM TUBE TOP SCH ×2 (11:18→21:40)
--- NOTE | 2016-12-05 12:53 | Pulmonology Progress Note ---
Pulmonary - PN: Subj Interval history: Patient is a 66-year-old white man with COPD who has recently had a repair of a diaphragmatic hernia and an abdominal ventral hernia. Postop he did relatively well and was home several days. He came back yesterday with fever and elevated white count and pleurisy. He was felt to be septic with pneumonia. Over the weekend he was doing better on Saturday and moved to a regular room. He developed more shortness of breath and had to be moved back to the ICU. His chest x-ray showed diffuse infiltrates and he did diurese fairly well. However he continued to have respiratory distress and required intubation. He is reasonably comfortable on the ventilator at present. He still has extensive bilateral infiltrates. He does have staph growing in his blood stream. He has had a fairly good weekend and feels like his breathing is better. He says he had a fairly good night but still has some cough and congestion. His soreness is getting better and he still has a wound VAC in place. He is eating a little better. He will need prolonged IV antibiotic therapy and hopefully he will get moved to [facility] soon. Exam (Progress Note) - Constitutional Vitals: Period Temp Pulse Resp BP Sys/Padgett Pulse Ox Last 24 Hr 97 F-99.3 F 65-82 16-66 102-139/48-71 90-99 Exam: General appearance: no distress, over weight, other (He is comfortable and not having any respiratory distress now.) - Head Head exam: Present: normal inspection, normocephalic - Eye Eye exam: Present: EOMI. Absent: scleral icterus Pupils: Present: NASH - ENT ENT exam: Present: normal exam - Neck Neck exam: Present: normal inspection. Absent: lymphadenopathy, thyromegaly - Respiratory Respiratory exam: Present: He has good breath sounds bilaterally and he has minimal rhonchi with good air movement. - Cardiovascular Cardiovascular exam: Present: He has a slow regular rhythm now and his blood pressure is stable. - GI/Abdominal GI/Abdominal exam: Present: His abdomen is softer and the redness is much better. He has a wound VAC in place. He is not as tender. - Extremities Exam Extremities exam: Absent: calf tenderness, edema - Neurological Exam Neurological exam: Present: alert, he is moving his extremities okay. - Psychiatric Psychiatric exam: Present: He is resting well and looks fairly calm. - Skin Skin exam: Present: warm, dry Results - Labs CBC & BMP: 12/04/16 18:52 12/03/16 05:30 Assessment and Plan (1) Right lower lobe pneumonia Status: Acute Assessment and plan: Patient comes in with fever and elevated white count and looks like he has right lower lobe pneumonia. He will be covered with antibiotics for a hospital- acquired pneumonia. He is growing MRSA out of his blood stream. He is getting vancomycin. Clinically he is doing better and his breathing has improved. Current Visit: Yes Qualifiers: Pneumonia type: due to unspecified organism Qualified Code(s): J18.1 - Lobar pneumonia, unspecified organism (2) Sepsis Status: Acute Assessment and plan: He has been hemodynamically stable and his blood pressure is much better. He is alert and overall he feels better. Current Visit: Yes Qualifiers: Sepsis type: sepsis due to unspecified organism Qualified Code(s): A41.9 - Sepsis, unspecified organism (3) Abdominal wall hernia Status: Acute Assessment and plan: He is much less tender and his abdomen is doing better. He does have a wound VAC in place Current Visit: No (4) COPD (chronic obstructive pulmonary disease) Status: Chronic Assessment and plan: He does have COPD and obstructive sleep apnea and came off the ventilator fairly well. His breathing is doing well and he will continue with respiratory therapy. He says he is not short of breath now and is moving around a little. Overall his breathing has improved. Current Visit: No Qualifiers: COPD type: unspecified COPD Qualified Code(s): J44.9 - Chronic obstructive pulmonary disease, unspecified (5) Status post hernia repair Status: Acute Assessment and plan: He has had recent surgery but his wound is apparently stable. He says his abdominal pain is much better now. Current Visit: Yes (6) Acute and chronic respiratory failure Status: Resolved Assessment and plan: Patient developed worsening respiratory distress and had to be intubated. He is doing much better and his chest x-ray is much clearer. He came off the ventilator without any problems and is breathing better now. He will still require IV antibiotics and respiratory therapy. Current Visit: Yes
[2016-12-05] MEDS: DOXAZOSIN 4 MG TABLET PO SCH (20:55)
[2016-12-06] MEDS: ALBUTEROL 2.5 MG/3 ML NEB RESP TX SCH ×4 (00:18→10:46)
[2016-12-06 05:02] LABS: Basophils % 0.1 % (0.0-0.8); Hematocrit 29.1 VOL% (42.0-52.0); Hemoglobin 9.1 GM/DL (14.0-18.0); Immature Granulocytes % 3.1 %; Immature Granulocytes Absolute 0.53 #; Lymphocytes # 0.3 10*3/uL (1.4-4.0); Lymphocytes % 1.5 % (21.2-54.2); Mean Corpuscular HGB Conc 31.3 GM/DL (32-36); Mean Corpuscular Hemoglobin 30 PG (27-34); Mean Corpuscular Volume 95.1 FL (87-102); Mean Platelet Volume 11.2 FL (9.6-12.0); Monocytes # 0.7 10*3/uL (0.11-0.8); Monocytes % 4.2 % (1.7-12.7); Neutrophils # 15.6 10*3/uL (1.4-7.4); Neutrophils % 91.1 % (38.7-73.9); Platelet Count 261 T/CUMM (130-400); Red Blood Count 3.06 MC/CUMM (3.8-5.5); Red Cell Distribution Width 15.2 % (9.3-17.3); White Blood Count 17.1 T/CUMM (4-12)
[2016-12-06 05:25] LABS: Band Neutrophils 1 % (0-10); Hypochromasia Slight; Lymphocytes 2 % (20-55); Segmented Neutrophils 95 % (50-85); Total Cells Counted 100
[2016-12-06 05:26] LABS: Microcytosis Slight; Platelet Estimate Normal
[2016-12-06 05:37] LABS: Bilirubin,Total 0.5 MG/DL (0.2-1.0); Calcium 7.5 MG/DL (8.5-10.1); Osmolality,Calculated 287.3 MOS/KG (273-304); Total Protein 4.3 G/DL (6.4-8.3)
[2016-12-06] MEDS: ARFORMOTEROL 15 MCG/2 ML NEB RESP TX SCH (07:27)
[2016-12-06] MEDS: INSULIN LISPRO 100 UNIT/ML SUBCUT SCH ×2 (08:03→11:32)
[2016-12-06] MEDS: methylPREDNISolone SOD SUC 40 MG/1 ML VIAL IV SCH (09:07)
[2016-12-06] MEDS: APIXABAN 5 MG TABLET PO SCH (09:07)
[2016-12-06] MEDS: GLIMEPIRIDE 2 MG TABLET PO SCH (09:07)
[2016-12-06] MEDS: FLUoxetine 20 MG CAPSULE PO SCH (09:07)
[2016-12-06] MEDS: AMIODARONE 200 MG TABLET PO SCH (09:08)
[2016-12-06] MEDS: PANTOPRAZOLE 40 MG TABLET PO SCH (09:08)
[2016-12-06] MEDS: FUROSEMIDE 40 MG TABLET PO SCH (09:09)
[2016-12-06] MEDS: LISINOPRIL 5 MG TABLET PO SCH (09:09)
[2016-12-06] MEDS: CLOTRIMAZOLE 1% CREAM 15 GM TUBE TOP SCH (09:10)
--- NOTE | 2016-12-06 09:33 | Infectious Disease Progress ---
Assessment and Plan (1) MRSA (methicillin resistant Staphylococcus aureus) septicemia Status: Acute Assessment and plan: This is a complicated infection with right lower lobe pneumonia and also infection of recent hernia surgery site. Further complicating case is the presence of foreign material at surgery site, ie mesh. The coagulase-negative staph species in the most recent blood cultures represents contamination most likely. He is tolerating vancomycin with therapeutic trough level and acceptable renal function. Recommendations: 1. Continue vancomycin 1.5 g every 18 hours. Last day of vancomycin therapy will be January 06. 2. Continue to monitor of renal function Saturday. Vancomycin trough levels can be monitored weekly at this point, on Mondays, with goal trough level 15-20. 3. Hold placement of PICC until we document negative repeat blood cultures I am told the patient is going to [facility] and I will follow him there. Current Visit: Yes (2) Right lower lobe pneumonia Status: Acute Assessment and plan: Being treated with vancomycin. Clinically improved. Current Visit: Yes Qualifiers: Pneumonia type: due to unspecified organism Qualified Code(s): J18.1 - Lobar pneumonia, unspecified organism (3) Sepsis Status: Acute Assessment and plan: Clinically improved with less leukocytosis today. Will continue to monitor. Current Visit: Yes Qualifiers: Sepsis type: sepsis due to unspecified organism Qualified Code(s): A41.9 - Sepsis, unspecified organism (4) Status post hernia repair Status: Acute Current Visit: Yes (5) COPD (chronic obstructive pulmonary disease) Status: Chronic Current Visit: No Qualifiers: COPD type: unspecified COPD Qualified Code(s): J44.9 - Chronic obstructive pulmonary disease, unspecified (6) Diabetes Status: Chronic Current Visit: No Qualifiers: Diabetes mellitus type: type 2 Diabetes mellitus complication status: without complication (7) Hypertension Status: Chronic Current Visit: No (8) Candidal intertrigo Status: Acute Assessment and plan: This involves groin and intergluteal creases and is quite severe. He got only 1 dose of fluconazole since he is on amiodarone. Continue topical clotrimazole therapy. Current Visit: Yes Infectious Disease - PN: Subj Interval history: No fever, strength improving, groin and intergluteal creases less irritated now that he is getting clotrimazole. He got 1 dose of fluconazole yesterday. Mild right-sided pain where his wound VAC is. Breathing comfortably. Infectious Disease Exam (PN) - Constitutional Vitals: Temp Pulse Resp BP Pulse Ox 96.2 F L 78 16 135/76 99 12/06/16 07:26 12/06/16 07:37 12/06/16 07:37 12/06/16 07:26 12/06/16 07:37 General appearance: normal weight, no acute distress Exam: General appearance: Relatively comfortable - Eye Eye exam: Present: EOMI. no icterus Pupils: Present: NASH - ENT ENT exam: no oral exudates - Respiratory Respiratory exam: vesicular BS, by basilar crepitations, no wheezes - Cardiovascular Cardiovascular exam: regular rate and rhythm, no murmurs - GI/Abdominal GI/Abdominal exam: Wound VAC to right side, normal bowel sounds, soft, non- tender, no organomegaly or mass - Extremities Exam Extremities exam: Bilateral lower extremity edema - Skin Skin exam: Angry erythematous, macerated macular rash in gluteal crease and also in bilateral groin creases Results - Labs CBC & BMP: 12/06/16 04:23 12/06/16 04:23 Lab Results: I have reviewed the past 24 hour labs (Repeat blood cultures no growth at day 1) Quality Measures - VTE Contraindication to Pharmacological VTE Prophylaxis: Already on Theraputic Agent , No Prophylaxis Needed Specialty Discharge - Follow Up or Referrals Follow up with: Antoni Whittaker MD [Physician] -
--- NOTE | 2016-12-06 09:36 | Pulmonology Progress Note ---
Pulmonary - PN: Subj Interval history: Patient is a 66-year-old white man with COPD who has recently had a repair of a diaphragmatic hernia and an abdominal ventral hernia. Postop he did relatively well and was home several days. He came back yesterday with fever and elevated white count and pleurisy. He was felt to be septic with pneumonia. Over the weekend he was doing better on Saturday and moved to a regular room. He developed more shortness of breath and had to be moved back to the ICU. His chest x-ray showed diffuse infiltrates and he did diurese fairly well. However he continued to have respiratory distress and required intubation. He is reasonably comfortable on the ventilator at present. He still has extensive bilateral infiltrates. He does have staph growing in his blood stream. He has had a fairly good weekend and feels like his breathing is better. He says he rested well last night and is breathing a little better. He feels like his abdominal soreness has improved. He is not having any fever now and is eating better. He is going to [facility] today. Exam (Progress Note) - Constitutional Vitals: Period Temp Pulse Resp BP Sys/Padgett Pulse Ox Last 24 Hr 96.2 F-97.6 F 55-119 15-19 119-135/55-76 93-99 Exam: General appearance: no distress, over weight, other (He is comfortable and not having any respiratory distress now. Overall he looks like he feels better) - Head Head exam: Present: normal inspection, normocephalic - Eye Eye exam: Present: EOMI. Absent: scleral icterus Pupils: Present: NASH - ENT ENT exam: Present: normal exam - Neck Neck exam: Present: normal inspection. Absent: lymphadenopathy, thyromegaly - Respiratory Respiratory exam: Present: He has good breath sounds bilaterally and he has minimal rhonchi with good air movement. - Cardiovascular Cardiovascular exam: Present: He has a slow regular rhythm now and his blood pressure is stable. - GI/Abdominal GI/Abdominal exam: Present: His abdomen is softer and the redness is much better. He has a wound VAC in place. He is not as tender. - Extremities Exam Extremities exam: Absent: calf tenderness, edema - Neurological Exam Neurological exam: Present: alert, he is moving his extremities okay. - Psychiatric Psychiatric exam: Present: He is resting well and looks fairly calm. - Skin Skin exam: Present: warm, dry Results - Labs CBC & BMP: 12/06/16 04:23 12/06/16 04:23 Assessment and Plan (1) Right lower lobe pneumonia Status: Acute Assessment and plan: Patient comes in with fever and elevated white count and looks like he has right lower lobe pneumonia. He will be covered with antibiotics for a hospital- acquired pneumonia. He is growing MRSA out of his blood stream. He is getting vancomycin. Clinically he is doing better and his breathing has improved. He will continue IV antibiotics. Current Visit: Yes Qualifiers: Pneumonia type: due to unspecified organism Qualified Code(s): J18.1 - Lobar pneumonia, unspecified organism (2) Sepsis Status: Resolved Assessment and plan: He has been hemodynamically stable and his blood pressure is much better. He is alert and overall he feels better. Current Visit: No Qualifiers: Sepsis type: sepsis due to unspecified organism Qualified Code(s): A41.9 - Sepsis, unspecified organism (3) Abdominal wall hernia Status: Acute Assessment and plan: He is much less tender and his abdomen is doing better. He does have a wound VAC in place. Current Visit: No (4) COPD (chronic obstructive pulmonary disease) Status: Chronic Assessment and plan: He does have COPD and obstructive sleep apnea and came off the ventilator fairly well. He says he is breathing comfortably and not having any distress now at all Current Visit: No Qualifiers: COPD type: unspecified COPD Qualified Code(s): J44.9 - Chronic obstructive pulmonary disease, unspecified (5) Status post hernia repair Status: Acute Assessment and plan: He has had recent surgery but his wound is apparently stable. He says his abdominal pain is much better now. Current Visit: Yes (6) Acute and chronic respiratory failure Status: Resolved Assessment and plan: Patient developed worsening respiratory distress and had to be intubated. He is doing much better and his chest x-ray is much clearer. He came off the ventilator without any problems and is breathing better now. He is moving to [facility] and continue IV vancomycin Current Visit: Yes Specialty Discharge - Follow Up or Referrals Follow up with: Antoni Whittaker MD [Physician] -
--- NOTE | 2016-12-06 10:01 | Discharge Summary ---
Hospital Course - Hospital Course Hospital Course: Patient is a 58-year-old male with paroxysmal atrial fibrillation, diabetes mellitus, hypertension, COPD oxygen and steroid-dependent, and history of obstructive sleep apnea who was admitted approximately 9 days postop for a complex abdominal procedures including open repairs of ventral diaphragmatic hernias with severe sepsis secondary to pneumonia and bacteremia. The patient underwent aggressive fluid resuscitation at which he originally responded well, but then became hypoxic and was suspected to be volume overloaded and readmitted to the ICU for diuresis. He required intubation at that time. After successful diuresis, he tolerated extubation without difficulty and progressed appropriately. He was found to have MRSA in his original blood cultures as well as his bronchial washes and wound cultures. Repeat blood cultures were sent with suspected to be likely contaminant since they grew staph hominis which was different than all the other cultures which were MRSA. The patient's lateral thoracic wound was opened for suspected underlying infection with minimal serous drainage and wound VAC placed. Patient continued on vancomycin. We appreciate consultations and cataloging assistant management from pulmonology services as well as infectious disease services as these were critical in his improvement. Ultimately, due to the patient's bacteremia he was recommended by infectious disease that he receive continued IV vancomycin until January 06 and to pull PICC line placement until blood cultures were completely negative. Patient was ultimately discharged to long-term acute care facility for continued wound VAC management and IV antibiotics as above in good condition. He does have persistent leukocytosis but remains on moderate dose corticosteroids. Diagnosis - Discharge Diagnosis (1) Severe sepsis due to methicillin resistant Staphylococcus aureus (MRSA) with acute organ dysfunction Status: Acute (2) Acute kidney injury superimposed on chronic kidney disease Status: Resolved (3) Status post hernia repair Status: Acute (4) Right lower lobe pneumonia Status: Acute (5) Candidal intertrigo Status: Acute (6) CAD (coronary artery disease) Status: Chronic (7) Diabetes Status: Chronic (8) Obstructive sleep apnea Status: Chronic (9) Hypertension Status: Chronic Specialty Discharge - Follow Up or Referrals Follow up with: Nichole Khan MD [Physician] - (Call office with room number on arrival) Antoni Whittaker MD [Physician] - (Call office with room number on arrival) Juvenal Nicholson MD [Physician] - (Call office with room number on arrival) Discharge Plan - Discharge Data Disposition: Disch/Xfer-Ip Rehab Fac Condition at Discharge: Stable Discharge Diet: diabetic diet Activity: as per physical therapy, other Hygiene: may shower Wound / Dressing Care Instructions: Wound vac to right thoracic wound. - Discharge Medications New HYDROcodone/ACETAMIN 7.5-325 [[place] 7.5-325] 1 tablet PO Q4H PRN #0 tablet PRN Reason: Pain Moderate To Severe (4-10) Vancomycin Inj 1,500 mg IV Q18H vial methylPREDNISolone SOD SUC INJ [SoluMEDROL] 20 mg IV Q12H vial Albuterol Neb [Proventil Neb] 2.5 mg RESP TX RT Q2H PRN #0 PRN Reason: Shortness Of Breath/Wheezing Continue Fluoxetine HCl 40 mg PO QAM Doxazosin [Cardura] 4 mg PO BEDTIME Albuterol Sulfate [Proair HFA] 2 puff INH BID Amiodarone Tab [Cordarone Tab] 100 mg PO QAM Ergocalciferol (Vitamin D2) [Vitamin D2] 50,000 unit PO Q3D Lisinopril [Prinivil] 5 mg PO DAILY #30 tablet Apixaban [Eliquis] 5 mg PO BID #60 tablet Glimepiride [Amaryl] 1 mg PO QAM Arformoterol Neb [Brovana] 15 mcg RESP TX RT BID Potassium Chloride Cap/Tab [K Dur] 20 meq PO QAM Furosemide Tab [Lasix Tab] 40 mg PO QAM Discontinued HYDROcodone/ACETAMIN 5-325 [[place] 5-325] 1 tablet PO Q6H PRN #20 tablet PRN Reason: Pain Moderate To Severe (4-10) - Follow Up or Referral Follow Up: Nichole Khan MD [Physician] - (Call office with room number on arrival) Antoni Whittaker MD [Physician] - (Call office with room number on arrival) Juvenal Nicholson MD [Physician] - (Call office with room number on arrival) - Forms/Instructions Instructions: Sepsis (DC), Pneumonia (DC) Additional Discharge Instructions: Maintain abdominal binder at all times. Bipap qhs. O2 @ 2L NC continuous Exam - Constitutional Vitals: Period Temp Pulse Resp BP Sys/Padgett Pulse Ox Last 24 Hr 96.2 F-97.6 F 55-119 15-19 119-135/55-76 93-99 General appearance: no acute distress - Respiratory Respiratory exam: Present: decreased breath sounds, prolonged expiratory phase. Absent: rhonchi, stridor, wheezes - Cardiovascular Cardiovascular exam: Present: regular rate and rhythm - GI/Abdominal GI/Abdominal exam: Present: normal bowel sounds, soft, other (Surgical incisions well-healed except lateral wound with wound vac in place and appears to operate appropriately @ 100mmHg). Absent: distended, tenderness - Extremities Exam Extremities exam: Absent: full ROM, calf tenderness - Neurological Exam Neurological exam: Present: alert, oriented X3 - Psychiatric Psychiatric exam: Present: normal affect, normal mood - Skin Skin exam: Present: normal color, warm Discharge Results Procedures and tests throughout hospitalization: Pending Orders 12/03/16 05:30 Blood Culture Routine 12/05/16 05:05 Blood Culture IN AM 11/25/2016 blood cultures tended to MRSA 11/24/1999 1722 blood cultures MRSA 11/24/2016 sputum culture MRSA 11/26/2016 abdominal dryness check MRSA 11/26/2016 blood cultures 1 out of 2 staph hominis 11/27/2016 11 MSSA 11/28/2016 bronchial washings MRSA 12/03/2016 1/2 gram-positive cocci on prelim 12/05 2016-/2 no growth at 24 hours Echocardiogram 11/26/2016: EF 55%; Grade 1/44 diastolic dysfunction; PAP @ 51mmHg Endotracheal intubation: 4days Bronchoscopy 11/28/2016: Bronchitis with mucus plugging; bilateral infiltrate with respiratory failure; bronchial washings sent for culture Labs on day of discharge: Labs from last 24 hours 12/06/16 12/06/16 12/06/16 06:57 04:23 04:23 WBC 17.1 H RBC 3.06 L Hgb 9.1 L Hct 29.1 L MCV 95.1 MCH 30 MCHC 31.3 L RDW 15.2 Plt Count 261 MPV 11.2 Neut % (Auto) 91.1 H Lymph % (Auto) 1.5 L [place] % (Auto) 4.2 Eos % (Auto) 0.0 Baso % (Auto) 0.1 Neut # (Auto) 15.6 H Lymph # (Auto) 0.3 L [place] # (Auto) 0.7 Eos # (Auto) 0.0 Baso # (Auto) 0.0 Total Counted 100 Immature Gran % 3.1 Nucleated RBC % 0.0 Immature Gran # 0.53 Segmented Neutrophils 95 H Band Neutrophils 1 Lymphocytes 2 L Monocytes 2 Nucleated RBCs # 0.00 Platelet Estimate Normal Hypochromasia Slight Microcytosis Slight Sodium 141 Potassium 5.0 Chloride 105 Carbon Dioxide 29 Anion Gap 12.0 BUN 28 H Creatinine 1.20 GFR Calculation 80 BUN/Creatinine Ratio 23.00 H Glucose 124 H POC Glucose 129 H Calculated Osmolality 287.3 Calcium 7.5 L Total Bilirubin 0.50 AST 18 ALT 36 Alkaline Phosphatase 85 Total Protein 4.3 L Albumin 2.0 L Globulin 2.3 Albumin/Globulin Ratio 0.8 L 12/05/16 12/05/16 12/05/16 20:56 16:54 11:58 WBC RBC Hgb Hct MCV MCH MCHC RDW Plt Count MPV Neut % (Auto) Lymph % (Auto) [place] % (Auto) Eos % (Auto) Baso % (Auto) Neut # (Auto) Lymph # (Auto) [place] # (Auto) Eos # (Auto) Baso # (Auto) Total Counted Immature Gran % Nucleated RBC % Immature Gran # Segmented Neutrophils Band Neutrophils Lymphocytes Monocytes Nucleated RBCs # Platelet Estimate Hypochromasia Microcytosis Sodium Potassium Chloride Carbon Dioxide Anion Gap BUN Creatinine GFR Calculation BUN/Creatinine Ratio Glucose POC Glucose 202 H 174 H 116 H Calculated Osmolality Calcium Total Bilirubin AST ALT Alkaline Phosphatase Total Protein Albumin Globulin Albumin/Globulin Ratio Preliminary micro results at discharge 12/05/16 05:05 Blood Culture - Preliminary Blood No growth at 1 day 12/05/16 05:05 Blood Culture - Preliminary Blood No growth at 1 day 12/03/16 05:30 Blood Culture - Preliminary Blood No growth at 3 days 12/03/16 05:30 Blood Culture - Preliminary Blood Gram Positive Cocci - Imaging and Cardiology Procedure: Chest x-ray: image reviewed by me, report reviewed by me (serial images), CT Abdomen and Pelvis: image reviewed by me, report reviewed by me DS: Provider Date of admission: 11/22/16 13:53 Primary care physician: . No PCP Attending physician on admission: Antoni Whittaker MD Consults: 11/22/16 16:11 Consult to Physician [CONS] Routine Comment: pt known to you; [facility]CAP Consulting Provider: Juvenal Nicholson 11/22/16 16:18 Consult to Pharmacy [CONS] Routine Reason for Pharmacy Consult: Dose/Manage Vancomycin 11/22/16 16:37 Consult to Pharmacy [CONS] Routine Reason for Pharmacy Consult: Adjust Meds Renal Funct 11/22/16 16:53 Consult to Dietitian [CONS] Routine Reason for Dietitian: Dietary Consult Consult Comment: admission assessment 11/23/16 15:10 PT [Consult to Physical Therapy] [CONS] Routine Reason for Physical Therapy: Evaluate and Treat 11/27/16 09:50 Consult to Dietitian [CONS] Routine Reason for Dietitian: TF-Initiate/Manage 11/28/16 07:51 Consult to Pharmacy [CONS] Routine Reason for Pharmacy Consult: Dose/Manage Gentamicin 12/04/16 08:50 Consult to Physician [CONS] Routine Comment: bacteremia Consulting Provider: Nichole Khan Consulting Provider Notified: Yes When should Consulting Provider be notified: Now Person Notified: shikha hood Date Notified: 12/04/16 Time Notified: 09:48 12/04/16 16:20 Consult to Case Mgmt/Social Srvs [CONS] Routine Reason for Case Mgmt/Social Srvs: Discharge Planning Consult Comment: Regen Discharging clinician: Chel Jacobs PA-C
[2016-12-06] MEDS: SODIUM HYPOCHLORITE 0.25% IRRIG 473 ML BOTTLE TOP SCH (10:32)
[2016-12-06] MEDS: SODIUM HYPOCHLORITE 0.25% IRRIG 473 ML BOTTLE IRRIG SCH (10:33)
[2016-12-06 11:52] VITALS: BP 116/61
== END 2016-12-06 13:48 | DRG 871 ==
LOC: EDUNIT# → N.ED 11:25 → N.EDINP 13:53 → N.CC 15:20 → N.3E 11-24 15:14 → N.ICU 11-25 22:33 → N.3E 11-30 13:16 → N.ICU 11-30 13:28 → N.3E 11-30 14:19
PROVIDERS: ADMIT Surgery; ATTEND Surgery

== ENCOUNTER 2020-07-09 13:39 | Inpatient (IN) ==
[2020-07-09 14:26] LABS: Basophils # 0.1 10*3/uL (0.0-0.2); Basophils % 0.6 % (0.0-0.8); Eosinophils # 0.4 10*3/uL (0.0-0.87); Eosinophils % 3.2 % (0.00-10.9); Hematocrit 45.4 VOL% (42.0-52.0); Hemoglobin 14.7 GM/DL (14.0-18.0); Immature Granulocytes % 1.2 %; Immature Granulocytes Absolute 0.14 #; Lymphocytes # 1.6 10*3/uL (1.4-4.0); Lymphocytes % 13.7 % (21.2-54.2); Mean Corpuscular HGB Conc 32.4 GM/DL (32-36); Mean Corpuscular Volume 95.2 FL (87-102); Mean Platelet Volume 10.4 FL (9.6-12.0); Monocytes % 10.9 % (1.7-12.7); Neutrophils % 70.4 % (38.7-73.9); Platelet Count 234 T/CUMM (130-400); Red Blood Count 4.77 MC/CUMM (3.8-5.5); Red Cell Distribution Width 13.9 % (9.3-17.3); White Blood Count 11.7 T/CUMM (4-12)
[2020-07-09] MEDS ORDERED: FUROSEMIDE 100 MG/10 ML VIAL IV STA (14:29)
[2020-07-09] MEDS ORDERED: LEVOFLOXACIN INJ 750 MG in PREMIX 1 EACH IV STA (14:29)
[2020-07-09 14:52] LABS: Albumin 3.1 G/DL (3.4-5.0); Bilirubin,Total 1.2 MG/DL (0.2-1.0); Calcium 8.7 MG/DL (8.5-10.1); Total Protein 6.8 G/DL (6.4-8.3)
[2020-07-09] MEDS ORDERED: ONDANSETRON 4 MG/2 ML VIAL IV PRN (15:50)
[2020-07-09] MEDS ORDERED: hydrALAZINE 20 MG/1 ML VIAL IV PRN (15:50)
[2020-07-09] MEDS ORDERED: GLUCAGON 1 MG VIAL IM PRN (15:50)
[2020-07-09] MEDS ORDERED: ACETAMINOPHEN 325 MG TABLET PO PRN (15:50)
[2020-07-09] MEDS ORDERED: DEXTROSE 50% 25 GM/50 ML VIAL IV PRN (15:50)
[2020-07-09 16:51] LABS: ABG Base Excess 1.5 MMOL/L (-2.5-2.5); ABG HCO3 25.6 MMOL/L (20-26); ABG PCO2 37.4 MM HG (35-48); ABG PH 7.439 (7.35-7.45); ABG PO2 67.7 MM HG (80-95); ABG TCO2 21.9 MMOL/L (23-27)
[2020-07-09] MEDS: methylPREDNISolone SOD SUC 40 MG/1 ML VIAL IV SCH (17:07)
[2020-07-09 17:18] LABS: Risk Ratio 5.55; Thyroid Stimulating Hormone 2.18 uIU/ml (0.358-3.74); VLDL CHOLESTEROL 40.2 MG/DL
[2020-07-09] MEDS: ALBUTEROL 2.5 MG/3 ML NEB RESP TX SCH (20:00)
[2020-07-09] MEDS: guaiFENesin/DM ER 600-30 MG TABLET PO SCH (20:43)
[2020-07-09] MEDS: INSULIN REGULAR 100 UNIT/ML SUBCUT SCH (20:44)
[2020-07-09 23:35] LABS: Bilirubin,Urine Negative (Negative); Blood, Urine Small mg/dL (Negative); Glucose,Urine (UA) 50 mg/dL (Negative); Hyaline Casts,Urine 5 /LPF (0-3); Ketones,Urine Negative (Negative); Mucus,Urine Occasional /LPF (Occasional); Nitrite,Urine Negative (Negative); Protein,Urine Negative; RBC,Urine <1 /HPF (0-4); Squamous Epithelial Cell,Urine Occasional /HPF (0-10); Urine Appearance CLEAR (Clear); Urine Color Yellow (Yellow); Urine Specific Gravity 1.013 (1.001-1.035); Urine Urobilinogen < 2.0 EU/DL (0.2-1.0)
[2020-07-10] MEDS: ALBUTEROL 2.5 MG/3 ML NEB RESP TX SCH ×4 (01:09→19:40)
[2020-07-10] MEDS: methylPREDNISolone SOD SUC 40 MG/1 ML VIAL IV SCH ×2 (04:31→15:08)
[2020-07-10 05:59] LABS: Basophils % 0.2 % (0.0-0.8); Hematocrit 41.2 VOL% (42.0-52.0); Hemoglobin 13.6 GM/DL (14.0-18.0); Immature Granulocytes % 1.8 %; Immature Granulocytes Absolute 0.16 #; Lymphocytes # 0.8 10*3/uL (1.4-4.0); Lymphocytes % 9.5 % (21.2-54.2); Mean Corpuscular Volume 94.1 FL (87-102); Mean Platelet Volume 10.8 FL (9.6-12.0); Monocytes % 5.4 % (1.7-12.7); Neutrophils % 83.1 % (38.7-73.9); Platelet Count 238 T/CUMM (130-400); Red Blood Count 4.38 MC/CUMM (3.8-5.5); Red Cell Distribution Width 13.5 % (9.3-17.3); White Blood Count 8.8 T/CUMM (4-12)
[2020-07-10] MEDS: INSULIN REGULAR 100 UNIT/ML SUBCUT SCH ×5 (07:49→20:43)
[2020-07-10] MEDS: BUDESONIDE 0.5 MG/2 ML NEB RESP TX SCH ×2 (08:01→19:40)
[2020-07-10] MEDS: ARFORMOTEROL 15 MCG/2 ML NEB RESP TX SCH ×2 (08:01→19:40)
[2020-07-10] MEDS: GLIMEPIRIDE 2 MG TABLET PO SCH (08:52)
[2020-07-10] MEDS: FUROSEMIDE 40 MG TABLET PO SCH (08:52)
[2020-07-10] MEDS: ASPIRIN EC 81 MG TABLET PO SCH (08:53)
[2020-07-10] MEDS: AMIODARONE 200 MG TABLET PO SCH (08:53)
[2020-07-10] MEDS: FLUoxetine 20 MG CAPSULE PO SCH (08:53)
[2020-07-10] MEDS: guaiFENesin/DM ER 600-30 MG TABLET PO SCH ×2 (08:53→20:43)
[2020-07-10] MEDS: POTASSIUM CHLORIDE 20 MEQ TABLET PO SCH (08:53)
[2020-07-10] MEDS: PANTOPRAZOLE 40 MG TABLET PO SCH (10:59)
[2020-07-10] MEDS: THEOPHYLLINE ER (24 HR) 200 MG CAPSULE PO SCH (10:59)
[2020-07-10] MEDS ORDERED: ALBUTEROL 2.5 MG/3 ML NEB RESP TX PRN (11:00)
[2020-07-10] MEDS: LEVOFLOXACIN INJ 750 MG in PREMIX 1 EACH IV SCH (15:09)
[2020-07-10] MEDS: TAMSULOSIN 0.4 MG CAPSULE PO SCH (18:01)
[2020-07-11] MEDS: ALBUTEROL 2.5 MG/3 ML NEB RESP TX SCH ×4 (00:16→18:14)
[2020-07-11] MEDS: methylPREDNISolone SOD SUC 40 MG/1 ML VIAL IV SCH ×2 (04:32→16:04)
[2020-07-11 06:05] LABS: Basophils % 0.1 % (0.0-0.8); Hematocrit 40.9 VOL% (42.0-52.0); Hemoglobin 13.3 GM/DL (14.0-18.0); Immature Granulocytes % 1.3 %; Immature Granulocytes Absolute 0.19 #; Lymphocytes # 0.9 10*3/uL (1.4-4.0); Lymphocytes % 6.3 % (21.2-54.2); Mean Corpuscular HGB Conc 32.5 GM/DL (32-36); Mean Corpuscular Volume 95.6 FL (87-102); Monocytes % 8.2 % (1.7-12.7); Neutrophils % 84.1 % (38.7-73.9); Platelet Count 235 T/CUMM (130-400); Red Blood Count 4.28 MC/CUMM (3.8-5.5); Red Cell Distribution Width 13.8 % (9.3-17.3); White Blood Count 14.3 T/CUMM (4-12)
[2020-07-11 06:28] LABS: Calcium 9.1 MG/DL (8.5-10.1); Osmolality,Calculated 284.5 MOS/KG (273-304)
[2020-07-11] MEDS: ARFORMOTEROL 15 MCG/2 ML NEB RESP TX SCH ×2 (07:20→18:14)
[2020-07-11] MEDS: BUDESONIDE 0.5 MG/2 ML NEB RESP TX SCH ×2 (07:20→18:14)
[2020-07-11] MEDS ORDERED: FUROSEMIDE 40 MG/4 ML VIAL IV ONE (09:00)
[2020-07-11] MEDS: AMIODARONE 200 MG TABLET PO SCH (10:45)
[2020-07-11] MEDS: POTASSIUM CHLORIDE 20 MEQ TABLET PO SCH (10:45)
[2020-07-11] MEDS: THEOPHYLLINE ER (24 HR) 200 MG CAPSULE PO SCH (10:45)
[2020-07-11] MEDS: INSULIN REGULAR 100 UNIT/ML SUBCUT SCH ×4 (10:45→20:23)
[2020-07-11] MEDS: guaiFENesin/DM ER 600-30 MG TABLET PO SCH ×2 (10:45→20:24)
[2020-07-11] MEDS: FLUoxetine 20 MG CAPSULE PO SCH (10:45)
[2020-07-11] MEDS: PANTOPRAZOLE 40 MG TABLET PO SCH (10:46)
[2020-07-11] MEDS: GLIMEPIRIDE 2 MG TABLET PO SCH (10:46)
[2020-07-11] MEDS: ASPIRIN EC 81 MG TABLET PO SCH (10:46)
[2020-07-11] MEDS: FUROSEMIDE 40 MG TABLET PO SCH (10:53)
[2020-07-11] MEDS: LEVOFLOXACIN INJ 750 MG in PREMIX 1 EACH IV SCH (16:07)
[2020-07-11] MEDS: TAMSULOSIN 0.4 MG CAPSULE PO SCH (18:04)
[2020-07-12] MEDS: ALBUTEROL 2.5 MG/3 ML NEB RESP TX SCH ×2 (01:50→07:06)
[2020-07-12] MEDS: methylPREDNISolone SOD SUC 40 MG/1 ML VIAL IV SCH (04:37)
[2020-07-12] MEDS: ARFORMOTEROL 15 MCG/2 ML NEB RESP TX SCH (07:06)
[2020-07-12] MEDS: BUDESONIDE 0.5 MG/2 ML NEB RESP TX SCH (07:06)
[2020-07-12] MEDS: INSULIN REGULAR 100 UNIT/ML SUBCUT SCH ×2 (07:41→11:24)
[2020-07-12 07:55] LABS: Basophils % 0.1 % (0.0-0.8); Hemoglobin 13.4 GM/DL (14.0-18.0); Immature Granulocytes % 1.4 %; Immature Granulocytes Absolute 0.24 #; Lymphocytes # 0.6 10*3/uL (1.4-4.0); Lymphocytes % 3.4 % (21.2-54.2); Mean Corpuscular HGB Conc 31.9 GM/DL (32-36); Mean Corpuscular Volume 96.3 FL (87-102); Mean Platelet Volume 10.7 FL (9.6-12.0); Neutrophils % 90.1 % (38.7-73.9); Platelet Count 268 T/CUMM (130-400); Red Blood Count 4.36 MC/CUMM (3.8-5.5); White Blood Count 16.6 T/CUMM (4-12)
[2020-07-12 08:24] LABS: Calcium 8.7 MG/DL (8.5-10.1); Osmolality,Calculated 288.4 MOS/KG (273-304)
[2020-07-12 08:36] LABS: Band Neutrophils 1 % (0-10); Lymphocytes 5 % (20-55); Segmented Neutrophils 86 % (50-85); Total Cells Counted 100
[2020-07-12 08:37] LABS: Anisocytosis 1+; Macrocytosis Slight
[2020-07-12] MEDS: FUROSEMIDE 40 MG TABLET PO SCH (09:40)
[2020-07-12] MEDS: ASPIRIN EC 81 MG TABLET PO SCH (09:40)
[2020-07-12] MEDS: PANTOPRAZOLE 40 MG TABLET PO SCH (09:40)
[2020-07-12] MEDS: POTASSIUM CHLORIDE 20 MEQ TABLET PO SCH (09:40)
[2020-07-12] MEDS: guaiFENesin/DM ER 600-30 MG TABLET PO SCH (09:40)
[2020-07-12] MEDS: FLUoxetine 20 MG CAPSULE PO SCH (09:40)
[2020-07-12] MEDS: GLIMEPIRIDE 2 MG TABLET PO SCH (09:40)
[2020-07-12] MEDS: AMIODARONE 200 MG TABLET PO SCH (09:40)
[2020-07-12] MEDS: THEOPHYLLINE ER (24 HR) 200 MG CAPSULE PO SCH (09:41)
[2020-07-12 11:26] VITALS: BP 132/69
== END 2020-07-12 13:35 | disposition home or self-care (01) | DRG 291 ==
LOC: N.ED 13:39 → N.EDINP 15:50 → SUATTDRO 15:50 → N.3E 18:20
PROVIDERS: ADMIT Family Medicine; ATTEND Internal Medicine